=== PATIENT | male | born 1945 | race Caucasian/White ===

== ENCOUNTER 2018-12-19 11:59 | Inpatient (IN) ==
[2018-12-19] MEDS ORDERED: Naloxone 0.4 MG/ML INJ IVP PRN (14:51)
[2018-12-19] MEDS: levoFLOXacin 750 MG/150 ML 750 MG/150 ML BAG IVPB SCH (15:35)
--- NOTE | 2018-12-19 16:04 | Internal Med History&Physical ---
Date of Encounter: 12/20/18 Time of Encounter: 15:30 Internal Medicine - H&P: HPI Chief complaint: Shortness of breath Admitted From: Hospital to Hospital Transfer (Transfer from [facility] [place]) History of present illness: Mr. Gracia is a 73 year old male presenting for increased shortness of breath. Patient states that the worsening shortness of breath started sunday (12/18), although he has been noticing it getting progressively worse for the last few months. He was transferred to [facility] from [facility] [place] for a higher level of care. Patient presented via EMS to [facility] [place] for increased shortness of breath. EMS reports patients SpO2 was 86% and they started him on 4LPM O2 via [place]. EMS also gave patient 1 duoneb treatment as well as salumedrol. Upon arrival to [facility] [place], patient's SpO2 was 93%. Patient states he is getting out of breath even with minimal physical activity. Patient is in 0/10 pain. Patient states he has trouble laying back and usually has to be sitting straight up to not feel short of air. Patient states theres no time in the day when the shortness of breath is worse. Patient states he does have an inhaler at home and uses around 3x daily, which provides some relief. Patient states he has a non-productive cough, denies nausea, denies vomiting, denies constipation, denies dysuria, denies changes in appetites, denies fever. Past Med Surg Social Fam HX - Past Medical History Medical history: COPD, hypertension Additional medical history: smoker - Past Surgical History Surgical History: no surgical history - Social History Smoking Status: Current every day smoker Packs per day: 1 Alcohol use: none Drug use: none - Family History Mother Living Status: Age at : 60 Cause of : cancer Hx Family Cancer: Yes Hx Family GI Disorders: Yes Hx Family Medical Disorders: Yes Internal Medicine - H&P: Meds Albuterol Sulfate [Albuterol Sulfate Hfa] 2 puff IH QID PRN 12/19/18 [History] Diltiazem HCl [Cardizem Cd] 360 mg PO DAILY 12/19/18 [History] Ipratropium/Albuterol Neb [Duoneb] 3 ml IH Q6H PRN 12/19/18 [History] Losartan/Hydrochlorothiazide [Losartan-Hctz 100-25 mg Tab] 1 tab PO DAILY 12/19/18 [History] Allergy/AdvReac Type Severity Reaction Status Date / Time No Known Allergies Allergy Verified 12/19/18 17:32 All Systems PM: A 10-system review of systems was performed and is negative for pertinent findings except as documented above in the HPI. Review of systems: General: Denies fever, chills, fatigue Head: denies headaches Eyes: denies blurry vision ENT: denies decreased hearing, runny nose, sore throat Cardiovascular: Denies chest pain, palpitations, lightheadedness Respiratory: + shortness of air, +cough, +wheezing GI: denies constipation : Denies dysuria Skin: denies unhealing lesions Neuro: denies confusion, denies dizziness. Psych: denies changes in mood, denies changes in sleep Hematological: Denies easy bleeding. Musculoskeletal: Denies fatigue, denies arthralgias. - Constitutional Constitutional: as per HPI - EENT Eyes: as per HPI Ears: as per HPI Nose, mouth and throat: as per HPI - Cardiovascular Cardiovascular ROS IM: as per HPI - Respiratory Respiratory: as per HPI - Gastrointestinal Gastrointestinal: as per HPI - Genitourinary Genitourinary ROS male: as per HPI - Musculoskeletal Musculoskeletal ROS IM: as per HPI - Integumentary Integumentary IM: as per HPI - Neurological Neurological ROS: as per HPI - Psychiatric Psychiatric: as per HPI - Hematologic/Lymphatic Hematologic/Lymphatic: as per HPI - Constitutional Vitals: Pulse Resp BP Pulse Ox 101 22 140/68 93 12/19/18 15:02 12/19/18 15:02 12/19/18 15:02 12/19/18 15:02 General appearance: Present: mild distress, A&O X 3 Exam: General: well-developed, alert and oriented x3, mild distress Head: normocephalic, atraumatic Eyes: PERRLA, EOMI, ENT: Normal mucuous membrane, trachea midline, Cardiovascular: Regular rate and rhythm, normal S1 S2, No S3, S4 auscultated. No rubs, gallops, or murmurs. Respiratory: Equal chest rise and fall, bilaterally wheezes throughout, restricted air movement. GI: Normal bowel sounds x4, abdomen soft, non-tender, non-distended. Skin: Warm, dry, intact Neuro: alert and oriented x3. DTRs 2/4 bilaterally, strength testing 5/5 bilaterally. Psych: Normal mentation and mood - Head Head exam: Present: atraumatic, normocephalic - Eye Eye exam: Present: EOMI, PERRL - ENT ENT exam: Present: normal exam - Neck Neck exam general surgery: Present: normal inspection, trachea midline - Respiratory Respiratory exam: Present: decreased breath sounds, respiratory distress, wheezes - Cardiovascular Cardiovascular exam: Present: RRR, +S1, +S2 - GI/Abdominal GI/Abdominal exam: Present: normal bowel sounds, soft - Extremities Exam Extremities exam: Present: pedal edema, warm, radial pulses palpable and symmetrical - Neurological Exam Neurological exam: Present: alert, oriented X3, reflexes normal, strengths equal and symetr throughout - Psychiatric Psychiatric exam: Present: normal affect, normal mood - Skin Skin exam: Present: dry, intact, warm Internal Med - H&P Results - Labs CBC & Chem 7: 12/20/18 03:43 12/20/18 03:43 - Assessment and Plan (1) Shortness of breath Current Visit: Yes Status: Acute Assessment and plan: Patient presented for shortness of breath. Patient is an active smoker, smoking 1 pack per day. Patient is on an inhaler at home that he states helps with the shortness of breath. Once medication list received will make sure patient has received today's medication since says he has not had his pills for today (12/19) -albuterol/ipratropium as needed -Will Start prednisone -Will start on diuretic once medication list is confirmed. -continue antibiotic therapy (levofloxacin) -Order chest x-ray -Order echo -BiPAP as needed to lower CO2. (2) COPD (chronic obstructive pulmonary disease) Current Visit: Yes Status: Acute Assessment and plan: Patient says he has COPD however states he has never received that official diagnosis. Patient is an active smoker, smoking 1 pack per day. Patient is on an inhaler at home that he states helps with the shortness of breath. Once medication list received will make sure patient has received today's medication since says he has not had his pills for today (12/19) -albuterol/ipratropium as needed -Will Start prednisone -continue antibiotic therapy (levofloxacin) -Order chest x-ray -Order echo -BiPAP as needed to lower CO Qualifiers: COPD type: COPD with acute exacerbation Qualified Code(s): J44.1 - Chronic obstructive pulmonary disease with (acute) exacerbation (3) Congestive heart failure Current Visit: Yes Status: Suspected Assessment and plan: Patient is on a diuretic at home. Patient has +1 pitting edema of the legs, so will treat fluid overloaded state. -Start diuretic based on home medication list. Qualifiers: Heart failure type: unspecified Qualified Code(s): I50.9 - Heart failure, unspecified (4) Hypercapnia Current Visit: Yes Status: Acute Assessment and plan: -BiPAP (5) Elevated troponin Current Visit: Yes Status: Acute Assessment and plan: Will trend troponins. Last troponin 0.50. At [facility] was 0.32 (6) Sepsis Current Visit: Yes Status: Suspected Assessment and plan: Patient meets SIRS criteria. Will continue to monitor. -Antibiotic therapy as above -chest x-ray -Order urinalysis -order BMP, CBC, Qualifiers: Sepsis type: sepsis due to unspecified organism Sepsis acute organ dysfunction status: unspecified Qualified Code(s): A41.9 - Sepsis, unspecified organism - Summary of Assessment and Plan Summary of Assessment and Plan: As above - Time Spent With Patient Total time spent is greater than 50% in coordination of care (as documented) at patient's floor/unit and/or counseling patient: 25 - 35 minutes
--- NOTE | 2018-12-19 17:31 | Internal Med History&Physical ---
<Viri Lazo - Last Filed: 12/19/18 17:38> Date of Encounter: 12/19/18 Time of Encounter: 17:00 Internal Medicine - H&P: HPI History of present illness: Mr. Gracia is a 73 year old male Internal Medicine - H&P: Meds Albuterol Sulfate [Albuterol Sulfate Hfa] 2 puff IH QID PRN 12/19/18 [History] Diltiazem HCl [Cardizem Cd] 360 mg PO DAILY 12/19/18 [History] Ipratropium/Albuterol Neb [Duoneb] 3 ml IH Q6H PRN 12/19/18 [History] Losartan/Hydrochlorothiazide [Losartan-Hctz 100-25 mg Tab] 1 tab PO DAILY 12/19/18 [History] Allergy/AdvReac Type Severity Reaction Status Date / Time No Known Allergies Allergy Verified 12/19/18 17:32 All Systems PM: A 10-system review of systems was performed and is negative for pertinent findings except as documented above in the HPI. - Constitutional Vitals: Pulse Resp BP Pulse Ox 101 22 140/68 93 12/19/18 15:02 12/19/18 15:02 12/19/18 15:02 12/19/18 15:02 Internal Med - H&P Results - Labs Labs: Cardiac Enzymes 12/19/18 Range/Units 15:39 Troponin I 0.50 H* (< 0.04) ng/mL - Time Spent With Patient Total time spent is greater than 50% in coordination of care (as documented) at patient's floor/unit and/or counseling patient: - Attending Attestation I saw evaluated and examined this patient and reviewed past medical, family, social histories and objective data including labs and my medical decision- making was reviewed with the Resident Physician, Ailyn Hirsch. I agree with the documented findings, disposition and treatment plan as described except to any changes set forth below. We independently had aldb-ox-kebu contact with the patient. Patient with history of COPD and a chronic smoker who presented to the ER at [facility] with complaints of shortness of breath going on for the past 3 days along with mild confusion. He had been taken there by his who had called EMS. When EMS arrived at home, he was found to be very wheezy and his room air sats were 85%. In the ED, he had workup done which showed left lower lobe infiltrate. He was sent over here for admission. Presently he seems to be doing somewhat better. He did require BiPAP ER there and he is now been transitioned back to nasal cannula but his oxygen saturation does continue to drop below 85% during my interview. He denies any chest pain or palpitations. No fevers or chills reported. He does have cough, orthopnea. Mild pedal edema. She will be treated for sepsis and acute respiratory failure with hypoxia related to pneumonia. Continue IV antibiotics. Follow culture results. Check pro calcitonin, Legionella and streptococcal antigens. Also treat him for COPD exacerbation with bronchodilators, systemic steroids and O2 supplementation. Use BiPAP as needed. His troponins are elevated. Most likely this is from demand ischemia. However given that he could also be having a non-ST elevation PR, we will treat him empirically with Lovenox and obtain 2-D echocardiogram. His BNP was elevated. No previous records available here. He may have underlying congestive heart failure. Presently, he does not appear to be in acute heart failure. <Ailyn Hirsch E - Last Filed: 12/19/18 18:15> Date of Encounter: 12/19/18 Internal Medicine - H&P: HPI Chief complaint: Shortness of breath Admitted From: Home Plans for Post Hospital Care: Home History of present illness: Mr. Gracia is a 73 year old male 's medical history of hypertension, COPD, tobacco abuse. Presented to [facility] for increased shortness of breath. Patient states that the worsening shortness of breath started sunday (12/18), although he has been noticing it getting progressively worse for the last few months. He was transferred to [facility] from [facility] for a higher level of care. Patient presented via EMS to [facility] for increased shortness of breath. EMS reports patients SpO2 was 86% and they started him on 4LPM O2 via [place]. EMS also gave patient 1 duoneb treatment as well as salumedrol. Upon arrival to [facility], patient's SpO2 was 93%. Patient states he is getting out of breath even with minimal physical activity. Patient is in 0/10 pain. Patient states he has trouble laying back and usually has to be sitting straight up to not feel short of air. Patient states theres no time in the day when the shortness of breath is worse. Patient states he does have an inhaler at home and uses around 3x daily, which provides some relief. Patient states he has a non-productive cough, denies nausea, denies vomiting, denies constipation, denies dysuria, denies changes in appetites, denies fever. Family history includes mother had cancer, father with heart disease Social history includes tobacco use one pack per day for "many years ", denies alcohol and drug use. Past Med Surg Social Fam HX - Past Medical History Medical history: COPD, hypertension Additional medical history: smoker - Past Surgical History Surgical History: no surgical history - Social History Smoking Status: Current every day smoker Packs per day: 1 Alcohol use: none Drug use: none - Family History Mother Living Status: Age at : 60 Cause of : cancer Hx Family Cancer: Yes Hx Family GI Disorders: Yes Hx Family Medical Disorders: Yes All Systems PM: A 10-system review of systems was performed and is negative for pertinent findings except as documented above in the HPI. - Constitutional Constitutional: no chills, no fever(s) - EENT Eyes: no blurry vision Nose, mouth and throat: no nasal congestion, no sinus pain, no sinus pressure, no sore throat - Cardiovascular Cardiovascular ROS IM: no chest pain, no edema, no palpitations - Respiratory Respiratory: cough, dyspnea, wheezing, excessive phlegm production - Gastrointestinal Gastrointestinal: no bloating, no diarrhea, no nausea, no vomiting - Genitourinary Genitourinary ROS male: no difficulty urinating, no urinary frequency, no urinary hesitancy - Musculoskeletal Musculoskeletal ROS IM: no back pain, no neck pain - Integumentary Integumentary IM: no non-healing lesions - Hematologic/Lymphatic Hematologic/Lymphatic: no easy bleeding, no easy bruising - Constitutional Vitals: Pulse Resp BP Pulse Ox 101 22 140/68 93 12/19/18 15:02 12/19/18 15:02 12/19/18 15:02 12/19/18 15:02 General appearance: Present: mild distress, A&O X 3 Exam: General: AAO 3, mild distress, answers questions appropriately Head: normocephalic, atraumatic Eyes: CECI, no icterus Cardio: RRR, no murmurs, rubs, or gallops Respiratory: Stridor and wheezing noted, poor air movement in apices as well as diminished breath sounds bilaterally on lower lobes Abd: normal bowel sounds, no gaurding or rigidity Extremities: 1+ pitting edema to mid teresa, pulses equal bilaterally, warm Skin: warm, dry, intact Internal Med - H&P Results - Labs Labs: Cardiac Enzymes 12/19/18 Range/Units 15:39 Troponin I 0.50 H* (< 0.04) ng/mL - Assessment and Plan (1) Sepsis Current Visit: Yes Status: Suspected Assessment and plan: Patient was tachycardic, elevated respiratory rate, elevated white blood cell count, with possible source of infection as pneumonia Chest x-ray from [facility] reading per ED note showed left basilar opacity concerning for pneumonia Urine strep and Legionella ordered Pro calcitonin ordered We will continue DuoNeb nebs Start levofloxacin BiPAP as needed Continue to monitor Qualifiers: Sepsis type: sepsis due to unspecified organism Sepsis acute organ dysfunction status: unspecified Qualified Code(s): A41.9 - Sepsis, unspecified organism (2) Pneumonia Current Visit: Yes Status: Acute Assessment and plan: Patient has increased work of breathing as well as wheezing History of COPD on albuterol as well as controller inhaler Patient has one-day history of increased shortness of breath and sputum production Chest x-ray [facility] showed left basilar opacity concerning for pneumonia Please see above for plan Qualifiers: Pneumonia type: due to unspecified organism Laterality: left Lung location: unspecified part of lung Qualified Code(s): J18.9 - Pneumonia, unspecified organism (3) Elevated troponin Current Visit: Yes Status: Acute Assessment and plan: [facility] ED troponins 0.3 repeat here 0.5 EKG noted to have some ST segment depressions at [facility] Patient denies any chest pain currently We will continue to trend troponins every 6, if they continue to increase we will consult cardiology Start Lovenox (4) Hypertension Current Visit: Yes Status: Acute Assessment and plan: Patient is on Coreg as well as lisinopril hydrochlorothiazide We will continue to monitor patient's blood pressure Qualifiers: Hypertension type: essential hypertension Qualified Code(s): I10 - Essential (primary) hypertension (5) Congestive heart failure Current Visit: Yes Status: Suspected Assessment and plan: Suspected congestive heart failure due to increased swelling as well as shortness of breath Patient does not have a history of congestive heart failure but does have history of hypertension Patient has 1+ pitting edema to the midshin and has noticed an increase in this over the last 2 days Patient does also have increased shortness of breath with wheezing We will order echocardiogram We will continue to monitor and consider diuresis based on echocardiogram findings as well as physical exam Qualifiers: Heart failure type: unspecified Qualified Code(s): I50.9 - Heart failure, unspecified - Summary of Assessment and Plan Summary of Assessment and Plan: Lovenox - Time Spent With Patient Total time spent is greater than 50% in coordination of care (as documented) at patient's floor/unit and/or counseling patient:
[2018-12-19] MEDS ORDERED: Ipratropium/Albuterol Neb 3 ML IH PRN (17:43)
[2018-12-19] MEDS ORDERED: Adenosine 90 MG/30 ML MLS IV ONE (18:11)
[2018-12-19] MEDS ORDERED: *HR* Heparin 5,000 UNIT/ML VIAL IVP ONE (23:47)
[2018-12-19] MEDS ORDERED: *HR* Heparin 5,000 UNIT/ML VIAL IVP PRN ×2 (23:47)
--- NOTE | 2018-12-19 23:56 | Event Note ---
Date of Encounter: 12/19/18 Time of Encounter: 23:49 Notified by nurse of patients troponin increasing and having intermittent pain in right foot with discoloration and temperature difference, continues to deny chest pain. Patient reports this has been ongoing for around a month, had previous ultrasound completed at [facility] which was negative for DVT. Assessed patient at bedside with Dr Nunez, pulses obtained in left foot with doppler, difficult to obtain in right foot. Will order ultrasound to further evaluate. Patient also had Lovenox ordered and discontinued prior to receiving any dosage. Called [facility] to confirm no anticoagulation was received there. Patient denies any home anticoagulation use. Will start patient on Heparin drip. Discussed with patient who is agreeable. Also discussed plan with Dr Nunez.
[2018-12-20 00:37] LABS: Hematocrit 38.4 % (37.5-50.1); Hemoglobin 12.3 g/dL (12.9-16.9); Mean Corpuscular Hemoglobin 30.5 pg (28.0-33.3); Mean Corpuscular Volume 95.3 fL (83.0-100.0); Platelet Count 580 K/mcL (140-400); Red Blood Count 4.03 M/mcL (4.19-5.50); Red Cell Distribution Width 13.8 % (11.5-14.5); White Blood Count 25.1 K/mcL (4.3-11.1)
[2018-12-20 00:44] LABS: Heparin anti-factor XA UFH 0.04 IU/mL (0.30-0.70)
[2018-12-20 00:45] LABS: INR 1.2; Prothrombin Time 13.5 Seconds (9.4-12.1)
[2018-12-20] MEDS: Heparin 25,000 UNIT/250 ML D5W 25,000 UNIT/250 ML IV.SOLN IVC SCH ×2 (01:57→20:59)
[2018-12-20 04:03] LABS: Basophils # 0.1 K/mcL (0.0-0.2); Basophils % 0.2 %; Hematocrit 37.6 % (37.5-50.1); Hemoglobin 11.8 g/dL (12.9-16.9); Immature Granulocytes % 1.5 % (0-4); Lymphocytes # 1.3 K/mcL (0.6-4.6); Lymphocytes % 5.3 %; Mean Corpuscular HGB Conc 31.4 g/dL (31.6-35.5); Mean Corpuscular Hemoglobin 30.3 pg (28.0-33.3); Mean Corpuscular Volume 96.4 fL (83.0-100.0); Monocytes # 1.4 K/mcL (0.0-1.3); Monocytes % 5.9 %; Neutrophils # 20.4 K/mcL (1.6-8.9); Platelet Count 560 K/mcL (140-400); Red Cell Distribution Width 13.8 % (11.5-14.5); Segmented Neutrophils % 87.1 %; White Blood Count 23.4 K/mcL (4.3-11.1)
[2018-12-20 04:24] LABS: BUN/Creatinine Ratio 28 (6-26); Blood Urea Nitrogen 24 mg/dL (8-23); Calcium 9.1 mg/dL (8.6-10.3); Carbon Dioxide 32 mEq/L (23-29); Chloride 95 mEq/L (98-107); Glucose 117 mg/dL (70-105); Osmolality,Calculated 283 (280-300); Potassium 4.9 mEq/L (3.5-5.1); Sodium 134 mEq/L (136-145); eGFR For African Americans > 60 (> 60); eGFR For Non-African Americans > 60 (> 60)
[2018-12-20] MEDS ORDERED: Enoxaparin Weight Dosing SQ SCH (06:00)
[2018-12-20] MEDS ORDERED: *HR* Enoxaparin 40 MG/0.4 ML SYRINGE SQ SCH (06:00)
--- NOTE | 2018-12-20 09:05 | Internal Med Progress Note ---
<Viri Lazo - Last Filed: 12/20/18 13:28> Hospitalist Progress Note - Encounter Date of Encounter: 12/20/18 Time of Encounter: 09:50 - Subjective Interval History: Patient continues to have shortness of breath. No significant improvement overnight. His not been able to tolerate BiPAP. He was also complaining of intermittent pain in his right foot which has been ongoing for some time now. He denies any loss of sensation or function in his foot. No fevers or chills reported overnight. No chest pain or palpitations. - Exam Vitals: Temp Pulse Resp BP Pulse Ox 98.4 F 101 20 157/76 96 12/20/18 12:21 12/20/18 12:21 12/20/18 12:21 12/20/18 12:21 12/20/18 12:21 Exam: General: Patient is alert, moderate distress, oriented x 3 Respiratory: Tachypneic, shallow respirations, bilateral wheezing Cardiovascular: Regular rate and rhythm. s1 and s2 normal No clicks, rubs, gallops, or murmurs. Mild pedal edema on the right lower extremity. Poor pedal pulses especially on the right. Abdomen: Abdomen is soft, nontender. Bowel sounds are present Musculoskeletal: Spontaneously moving all extremities Skin: warm, dry, intact. Neuro: Alert oriented x 3 normal cranial nerves, no focal deficits - Time Spent with Patient Total time spent is greater than 50% in coordination of care (as documented) at patient's floor/unit and/or counseling patient: Internal Medicine: Result - Labs CBC & Chem 7: 12/20/18 03:43 12/20/18 03:43 Labs: Short CBC 12/20/18 12/20/18 Range/Units 00:16 03:43 WBC 25.1 H 23.4 H (4.3-11.1) K/mcL Hgb 12.3 L 11.8 L (12.9-16.9) g/dL Hct 38.4 37.6 (37.5-50.1) % Plt Count 580 H 560 H (140-400) K/mcL Neutrophils # 20.4 H (1.6-8.9) K/mcL BMP 12/20/18 03:43 Sodium 134 L Potassium 4.9 Chloride 95 L Carbon Dioxide 32 H BUN 24 H Creatinine 0.85 Glucose 117 H Calcium 9.1 Cardiac Enzymes 12/19/18 12/19/18 12/20/18 Range/Units 15:39 20:51 03:43 Troponin I 0.50 H* 0.64 H* 0.53 H* (< 0.04) ng/mL - ABG Interpretation ABG results: PT/INR, D-dimer PT 13.5 Seconds (9.4-12.1) H 12/20/18 00:16 - Impressions Impressions Echocardiogram 12/19/18 17:44 Impressions: LVEF 50-55%. Normal LV chamber size, wall thickness and overall function. Mild segmental left ventricular systolic dysfunction. Mild left ventricular diastolic dysfunction. Atypical septal motion consistent with bundle branch block. Mildly dilated RV with normal function. No significant valvular dysfunction. Severe pulmonary hypertension. Estimated RVSP is >80 mmHg. Left Ventricular Wall Motion: Rest Echo Findings The basal inferior wall was hypokinetic. All other wall segments showed normal motion. Findings: Study Quality * Technically sub-optimal due to poor echocardiographic windows. ECG Findings * Sinus rhythm with BBB. Left Ventricle * LVEF 50-55%. * Normal LV chamber size, wall thickness and overall function. * Mild segmental left ventricular systolic dysfunction. * Mild left ventricular diastolic dysfunction. * Atypical septal motion consistent with bundle branch block. Right Ventricle * Mildly dilated RV with normal function. Left Atrium * Mildly dilated left atrium. Right Atrium * Mildly dilated right atrium. Interatrial Septum * No evidence of a PFO by color Doppler. Aortic Valve * Aortic valve not well visualized. * No aortic regurgitation. * No aortic stenosis. Mitral Valve * Normal mitral valve structure. * Trace mitral regurgitation. * No mitral stenosis. Tricuspid Valve * Normal tricuspid valve structure and function. * Trace tricuspid regurgitation. * Severe pulmonary hypertension. * Estimated RVSP is >80 mmHg. Pulmonic Valve * Pulmonic valve not well visualized. * No pulmonic regurgitation. Aorta * Normally sized aortic root. Pericardium * The pericardium appears normal. IVC * Normal IVC dimensions and inspiratory collapse. Pulmonary Artery * Pulmonary artery not well visualized. Consult Discharge Plan - Plan Referrals: Malika Arriaga MD [Primary Care Provider] - - Attending Attestation I saw evaluated and examined this patient and reviewed objective data including labs and my medical decision-making was reviewed with the medical student. I agree with the documented findings, disposition and treatment plan as described except to any changes set forth below. We independently had [id number] contact with the patient. Sepsis due to pneumonia: Continue current antibiotics. We will repeat chest x-ray today revealed to reevaluate. Legionella and streptococcal antigens have been negative. Pro calcitonin only slightly elevated at 0.15. COPD exacerbation: Continue bronchodilators and O2 supplementation. Use BiPAP as needed. add steroids. Acute respiratory failure with hypoxia: Due to pneumonia and COPD exacerbation. Management as above. Right lower extremity pain: Concerning for intermittent claudication/peripheral vascular disease. No signs of occlusion. Patient had JOE done last night which showed JOE of 0.19 on the right and 0.42 on the left. Will consult vascular surgery for evaluation. Will place patient on aspirin and statin. Troponin elevation: Most likely from demand ischemia. However 2-D echocardiogram does show segmental systolic dysfunction. We will consult car diology for evaluation. Continue IV heparin. Severe pulmonary hypertension: Continue O2 supplementation. Essential hypertension: Blood pressure is elevated. Resume home medications. Chronic diastolic congestive heart failure: 2-D echocardiogram reviewed. Patient has normal ejection fraction but mild left ventricle diastolic dysfunction. No signs of overt heart failure. High risk for complications. <Mike Heath - Last Filed: 12/20/18 17:02> Hospitalist Progress Note - Encounter Date of Encounter: 12/20/18 Time of Encounter: 09:51 - Subjective Interval History: Patient seen and examined at bedside. Reports difficulty breathing, SOB, non- productive cough. Has been unable to tolerate the Bipap machine because he feels like he's suffocating and can't see. Denies fever, chills, chest pain, diarrhea, dysuria, light headedness, abdominal pain and pain in the extremities. - Exam Vitals: Temp Pulse Resp BP Pulse Ox 98.1 F 94 18 146/71 93 12/20/18 07:52 12/20/18 07:52 12/20/18 07:52 12/20/18 07:52 12/20/18 03:55 Exam: Gen: AOx3 Eyes: CECI, EOMI with no conjunctivits Throat: Moist mucous membranes, black/tarry discoloration of tongue likely 2/2 tobacco use CV: RRR with no murmur Resp: Decreased lung volumes with wheezing. Diminished air movement makes it hard to assess crackles or rhales. GI: Soft, non-tender with no organomegally or masses palpated Neuro: CN II-XII intact with no focal deficits. Strength 4/5 in Upper and lower extremities EXT: Weak dorsalis pedis pulses in the right foot. DP 2/4 in left foot. Pedis sw elling 1+ satya but worse in the right foot. Collection of stasis blood in right heel. Calfs non-tender satya Derm: Skin around 1st and 5th toe on the right is discolored without any cuts or trauma in the region. - Assessment and Plan (1) Sepsis Current Visit: Yes Status: Suspected Assessment and Plan: -Patient met SIRS criteria upon admission 12/19 with possible source of infection as pneumonia -Chest x-ray on 12/19 from [facility] reading per ED note showed left basilar opacity concerning for pneumonia - Urine strep and Legionella pending -Pro calcitonin 0.15 on 12/19 - Lactic acid 0.8 on 12/19 Plan: -Cont Levofloxacin 750 mg Q24 -BiPAP as needed -Continue to monitor (2) Pneumonia Current Visit: Yes Status: Acute Assessment and Plan: -one-day history of increased shortness of breath and sputum production - increased work of breathing, increased oxygen demand on 3L and wheezing. No oxygen needed at home - History of COPD - Chest x-ray [facility] 12/19 showed left basilar opacity concerning for pneumonia - Sputum culture obtained 12/19 Plan; - cont Levofloxacin 750 mg Q24 - obtain 2 view chest x ray (3) COPD exacerbation Current Visit: Yes Status: Acute Assessment and Plan: -Increased SOB, non-productive cough, and increased O2 demand from baseline. Normally not on home O2 -Chronic 1PPD smoker - Received solumedrol and duonebs at [facility] on 12/19 Plan: -Continue O2 NC as needed. Wean as tolerated. - Start Solumedrol, consider transition to PO prednisone - Continue scheduled and PRN duonebs. -Use BIPAP as tolerated. (4) Elevated troponin Current Visit: Yes Status: Acute Assessment and Plan: -[facility] ED troponins 0.3. Troponin at [facility] 12/19 was 0.64 and 12/20 is 0.53. -EKG at [facility] showed Sinus tachycardia with ST segment depressions at [facility] on 12/19 Plan: -Cont Heparin IV - Await echocardiogram results, if abnormal plan to consult cardiology (5) Congestive heart failure Current Visit: Yes Status: Suspected Assessment and Plan: -suspected congestive heart failure due +1 pitting edema to the midshin over past 2 days, shortness of breath. -Patient does not have a history of congestive heart failure but does have history of hypertension - BNP 36 12/19 Plan: -await echo results as above (6) Hypertension Current Visit: Yes Status: Acute Assessment and Plan: -Chronic HTN Lisinopril-HctZ Plan: - Continue home medications - Continue to monitor vital signs (7) Arterial insufficiency of lower extremity Current Visit: Yes Status: Acute Assessment and Plan: -intermittent discoloration and temperature difference for past 1 month in R Foot -Reports he had evaluated with Doppler at [facility] 12/18 that was negative for DVT. - Has not been on anticoagulation outpatient - Cyanosis, and temperature changes in foot were noticed on 12/19 at 23:49. Doppler Negative for DVT or SVT -JOE preliminary results 0.19 in the R LE and 0.42 L LE as seen on 12/20 Plan: -Continue to monitor DP pulses - Vascular surgery consult DVT Prophylaxis: On heparin drip - Time Spent with Patient Total time spent is greater than 50% in coordination of care (as documented) at patient's floor/unit and/or counseling patient: Plan of Care Discussed with: patient Internal Medicine: Result - Labs CBC & Chem 7: 12/20/18 03:43 12/20/18 03:43 Labs: Short CBC 12/20/18 12/20/18 Range/Units 00:16 03:43 WBC 25.1 H 23.4 H (4.3-11.1) K/mcL Hgb 12.3 L 11.8 L (12.9-16.9) g/dL Hct 38.4 37.6 (37.5-50.1) % Plt Count 580 H 560 H (140-400) K/mcL Neutrophils # 20.4 H (1.6-8.9) K/mcL BMP 12/20/18 03:43 Sodium 134 L Potassium 4.9 Chloride 95 L Carbon Dioxide 32 H BUN 24 H Creatinine 0.85 Glucose 117 H Calcium 9.1 Cardiac Enzymes 12/19/18 12/19/18 12/20/18 Range/Units 15:39 20:51 03:43 Troponin I 0.50 H* 0.64 H* 0.53 H* (< 0.04) ng/mL - ABG Interpretation ABG results: PT/INR, D-dimer PT 13.5 Seconds (9.4-12.1) H 12/20/18 00:16 <Mike Heath R - Last Filed: 12/20/18 17:02> (1) Sepsis Qualifiers: Sepsis type: sepsis due to unspecified organism Sepsis acute organ dysfunct ion status: unspecified Qualified Code(s): A41.9 - Sepsis, unspecified organism (2) Pneumonia Qualifiers: Pneumonia type: due to unspecified organism Laterality: left Lung location: unspecified part of lung Qualified Code(s): J18.9 - Pneumonia, unspecified organism (5) Congestive heart failure Qualifiers: Heart failure type: unspecified Qualified Code(s): I50.9 - Heart failure, unspecified (6) Hypertension Qualifiers: Hypertension type: essential hypertension Qualified Code(s): I10 - Essential (primary) hypertension
[2018-12-20] MEDS: Ipratropium/Albuterol Neb 3 ML IH SCH ×3 (10:32→20:19)
[2018-12-20] MEDS ORDERED: *HR* HYDROcodone/Acet 5/325 mg TABLET PO ONE (12:02)
[2018-12-20 12:12] LABS: Chol/HDL Ratio 4.7 (0-4.9); Cholesterol 155 mg/dL (< 200); HDL Cholesterol 33 mg/dL (40-59); LDL Cholesterol,Calculated 101 mg/dL (0-99); Triglycerides 105 mg/dL (< 150)
[2018-12-20] MEDS: Diltiazem CD (24hr) 180 MG CAPSULE PO SCH (12:35)
[2018-12-20] MEDS: Acetaminophen 325 MG TABLET PO PRN ×2 (12:35→21:11)
[2018-12-20] MEDS: Losartan/HCTZ 50-12.5 TABLET PO SCH (12:35)
[2018-12-20] MEDS: Aspirin 81 MG TAB.CHEW PO SCH (12:36)
[2018-12-20] MEDS: MethylPREDNISolone 40 MG/ML VIAL IVP SCH ×2 (12:36→23:51)
--- NOTE | 2018-12-20 13:35 | Cardiology Consult Note ---
<Mirza Mondragon - Last Filed: 12/20/18 15:41> Date of Encounter: 12/20/18 Time of Encounter: 13:23 Assessment and Plan (1) Shortness of breath Current Visit: Yes Status: Acute 1. Suspect current condition multifactoral with echo 12/19/18 EF 50-55% showing severe pulmonary hypertension in the setting of Left lower lobe PN as evident on chest x-ray reported from [facility]. Chest x-ray pending. 2. Echo 12/19/18 showed EF 50-55%. Normal LV chamber size, wall thickness and overall function. Mild segmental left ventricular systolic dysfunction. Mild left ventricular diastolic dysfunction. Atypical septal motion consistent with bundle branch block. Mildly dilated RV with normal function. No significant valvular dysfunction. Severe pulmonary hypertension. Estimated RVSP is >80 mmHg. The basal inferior wall was hypokinetic. All other wall segments showed normal motion. 4. Examination RLE 4+ pitting edema, LLE 1+ pitting edema. Lungs rhonchi, fine crackles noted lower lobes. 5. Pt. unable to lie flat for more than several minutes at this time d/t SOB; Cummulative I/Os is -287 6. Will add lasix 40mg IV BID. 7. Will check BNP. 5. Discussed with Dr. Briggs, pt. and family. Will consider LHC when able to tolerate lying flat and decrease in SOB. The pt. and family understand the risks associated with LHC procedure and education given on pre and post procedure. 6. No cardiac rehab warranted at this time. (2) Elevated troponin Current Visit: Yes Status: Acute 1. Troponins 0.50, 0.64, 0.53 likely demand ischemia in the setting of COPD exacerbation with sepsis/PN; denies chest pain. 2. Stat EKG completed. EKG changes noted compared to previous from [facility] with abnormal Q wave/ST changes noted; Reviewed with Dr. Briggs and will consider LHC when pt. tolerates laying flat; currently unable to lay flat d/t SOB. 3. On heparin gtt., continue. (3) Hypertension Current Visit: Yes Status: Acute 1. BP readins averaging 140s/70s. 2. On home dose Cardizem 360mg PO daily, HCTZ/losartan 50/12.5, 2 each daily, continue. Qualifiers: Hypertension type: essential hypertension Qualified Code(s): I10 - Essential (primary) hypertension Discussion w patient/family: The assessment and plan as outlined above was discussed with the patient and/or family members who expressed understanding and agreement. All questions were answered. Thank you for involving us in the care of your patient. Please call with any questions. History of Present Illness Consult date: 12/20/18 Consult reason: elevated troponins Chief complaint: SOB History of present illness: Mr. Gracia is a 73 year old male with PMH of COPD, HTN, smoker presented at [facility] for several months and worsening x 3 days, EMS recorded SPO2 85% at home with mild confusion. Chest x-ray showed LLL infiltrate; transferred to [facility]. Denied chest pain, palpitations, fevers, chills, n/v, diarrhea. Admits to cough, orthopnea, and pedal edema. Past Med Surg Social Fam HX - Past Medical History Attestation: Yes The following information was validated with the patient. Source: patient, old records reviewed Medical history: COPD, hypertension Additional medical history: smoker - Past Surgical History Surgical History: no surgical history - Social History Smoking Status: Current every day smoker Packs per day: 1 Alcohol use: none Drug use: none - Family History Mother Living Status: Age at : 60 Cause of : cancer Hx Family Cancer: Yes Hx Family GI Disorders: Yes Hx Family Medical Disorders: Yes Medications and Allergies Albuterol Sulfate [Albuterol Sulfate Hfa] 2 puff IH QID PRN 12/19/18 [History] Diltiazem HCl [Cardizem Cd] 360 mg PO DAILY 12/19/18 [History] Ipratropium/Albuterol Neb [Duoneb] 3 ml IH Q6H PRN 12/19/18 [History] Losartan/Hydrochlorothiazide [Losartan-Hctz 100-25 mg Tab] 1 tab PO DAILY 12/19/18 [History] Gabapentin [Neurontin] 300 mg PO BID 12/20/18 [History] HYDROcodone/Acet 5/325 mg [[place] 5-325 mg] 1 tab PO TID PRN 12/20/18 [History] Allergy/AdvReac Type Severity Reaction Status Date / Time No Known Allergies Allergy Verified 12/19/18 17:32 All Systems Review: The remainder of the systems were reviewed and are negative - Cardiovascular Cardiovascular: as per HPI Physical Examination Vital Signs, Last 4 Hours Temp Pulse Resp BP Pulse Ox 12/20/18 12:21 98.4 F 101 20 157/76 96 12/20/18 11:09 98 F 101 18 147/77 95 12/20/18 10:32 26 96 12/20/18 10:16 93 General: Conversant, No Apparent Distress HEENT: Atraumatic, Normocephaly, Mucus Membranes Moist Neck: No JVD, Normal carotid pulses Cardiac: Reg Rate and Rhythm, Normal S1 and S2, No Murmur Lungs: Normal Breath Sounds, No Wheeze, Rales, Rhonchi Neuro: Alert and responsive, No focal deficits noted Abdomen: Soft, Non-Tender Skin: No rashes noted on visualized skin Musculoskeletal: No Chest Wall Tenderness Extremities: No Clubbing, No Cyanosis, No Edema, Normal Pulses Results 12/20/18 03:43 12/20/18 03:43 Lab Results Laboratory Tests 12/19/18 12/20/18 12/20/18 20:51 00:16 03:43 WBC 25.1 H Hgb 12.3 L Hct 38.4 Plt Count 580 H BUN 24 H Creatinine 0.85 Est GFR (Non-Af Amer) > 60 LDL Cholesterol, Calc 101 H HDL Cholesterol 33 L Procalcitonin 0.15 Laboratory Tests 12/19/18 12/19/18 12/20/18 15:39 20:51 03:43 Troponin I 0.50 H* 0.64 H* 0.53 H* Selected Entries 12/19/18 15:02 12/19/18 19:13 12/19/18 22:42 Blood Pressure 140/68 137/81 140/79 12/20/18 03:55 12/20/18 07:52 12/20/18 11:09 Blood Pressure 145/78 146/71 147/77 12/20/18 12:21 Blood Pressure 157/76 Impressions ITS Impressions Echocardiogram 12/19/18 17:44 Impressions: LVEF 50-55%. Normal LV chamber size, wall thickness and overall function. Mild segmental left ventricular systolic dysfunction. Mild left ventricular diastolic dysfunction. Atypical septal motion consistent with bundle branch block. Mildly dilated RV with normal function. No significant valvular dysfunction. Severe pulmonary hypertension. Estimated RVSP is >80 mmHg. Left Ventricular Wall Motion: Rest Echo Findings The basal inferior wall was hypokinetic. All other wall segments showed normal motion. Active Medications Acetaminophen (Tylenol) 650 mg PO Q6HR PRN PRN Reason: Mild Pain/Fever Stop: 06/20/19 14:52 Last Admin: 12/20/18 12:35 Dose: 650 mg Documented by: Albuterol/Ipratropium (Duoneb) 3 ml IH [id number] PRN PRN Reason: Shortness Of Breath/Wheezing Stop: 06/20/19 17:44 Albuterol/Ipratropium (Duoneb) 3 ml IH [id number] [facility] Stop: 06/21/19 12:01 Last Admin: 12/20/18 10:32 Dose: 3 ml Documented by: Aspirin (Aspirin) 81 mg PO DAILY [facility] Stop: 06/21/19 09:01 Last Admin: 12/20/18 12:36 Dose: 81 mg Documented by: Atorvastatin Calcium (Lipitor) 40 mg PO HS [facility] Stop: 06/21/19 21:01 Diltiazem HCl (Cardizem Cd) 360 mg PO DAILY [facility] Stop: 06/21/19 12:01 Last Admin: 12/20/18 12:35 Dose: 360 mg Documented by: HCTZ/Losartan Potassium (Hyzaar 50/12.5) 2 each PO DAILY [facility] Stop: 06/21/19 11:16 Last Admin: 12/20/18 12:35 Dose: 2 each Documented by: Heparin Sodium (Porcine) (Heparin) 4,000 unit IVP Q6HR PRN PRN Reason: SEE COMMENTS Stop: 06/20/19 23:48 Last Admin: 12/20/18 09:22 Dose: 4,000 unit Documented by: Heparin Sodium (Porcine) (Heparin) 2,000 unit IVP Q6H PRN PRN Reason: SEE COMMENTS Stop: 06/20/19 23:48 Levofloxacin/Dextrose (Levaquin Premix 750mg/150 Ml) 750 mg in 150 mls @ 100 mls/hr IVPB Q24H [facility]; Protocol Stop: 06/20/19 16:01 Last Admin: 12/19/18 15:35 Dose: 100 mls/hr Documented by: Heparin Sodium/Dextrose (Heparin 25,000 Unit/250 Ml D5w) 25,000 unit in 250 mls @ 10.044 mls/hr IVC .Q24H [facility]; Protocol Stop: 06/20/19 23:46 Last Titration: 12/20/18 09:19 Dose: 16 unit/kg/hr, 13.4 mls/hr Documented by: Methylprednisolone (Solu-Medrol) 40 mg IVP Q12H [facility] Stop: 06/21/19 11:01 Last Admin: 12/20/18 12:36 Dose: 40 mg Documented by: Naloxone HCl (Narcan) 0.4 mg IVP Q2MPRN PRN PRN Reason: SEE COMMENTS Stop: 06/20/19 14:52 Consult Discharge Plan - Plan Referrals: Malika Arriaga MD [Primary Care Provider] - <John Briggs - Last Filed: 12/21/18 12:19> Date of Encounter: 12/21/18 - Attending Attestation I have personally performed a face to face evaluation on this patient. I have reviewed and agree with the care plan. History and Exam by me shows: 73-year-old male with history of COPD exacerbation, pneumonia, elevated troponins with EKG changes. We will pursue aggressive risk assessment with a C on patient stable from above comorbidities and able to lay flat tolerated procedure. Assessment and Plan Discussion w patient/family: The assessment and plan as outlined above was discussed with the patient and/or family members who expressed understanding and agreement. All questions were answered. Thank you for involving us in the care of your patient. Please call with any questions. History of Present Illness History of present illness: Mr. Gracia is a 73 year old male All Systems Review: The remainder of the systems were reviewed and are negative Physical Examination Vital Signs, Last 4 Hours Temp Pulse Resp BP Pulse Ox 12/21/18 11:08 97.9 F 78 18 131/60 95 Results 12/21/18 04:18 12/21/18 04:18 Lab Results 12/20/18 12/21/18 12/21/18 16:20 04:18 04:18 WBC 22.0 H Hgb 11.5 L Hct 36.3 L Plt Count 567 H INR 1.1 Sodium Potassium Chloride Carbon Dioxide BUN Creatinine Glucose Calcium B-Natriuretic Peptide 572 H 12/21/18 04:18 WBC Hgb Hct Plt Count INR Sodium 135 L Potassium 4.5 Chloride 92 L Carbon Dioxide 38 H BUN 35 H Creatinine 1.08 Glucose 162 H Calcium 9.5 B-Natriuretic Peptide
--- NOTE | 2018-12-20 15:24 | Vascular/Endovasc Consult Note ---
Date of Encounter: 12/21/18 Time of Encounter: 15:10 Assessment and Plan (1) Atherosclerosis of [place] arteries of extremities with intermittent claudication, bilateral legs Current Visit: Yes Status: Chronic The pathophysiology and natural history of peripheral vascualr disease was discussed with the patient and his family and all questions were answered. The patient has evidence of severe peripheral vascular disease by ankle brachial index. He has no evidence of acute limb ischemia. He has no ulcers or gangrene. He does report nocturnal rest pain. He has limited mobility and reports claudication. He has a diminished pulse exam. He likely has inflow and outflow disease. He will require further evaluation and intervention once his acute illness has resolved. Due to his comorbidities, he is high risk for any surgical procedures. At this time, continue with daily ASA. Plavix may be added if the patient is able to tolerate it. WIll order additional arterial imaging. (2) COPD (chronic obstructive pulmonary disease) Current Visit: Yes Status: Chronic Qualifiers: COPD type: COPD with acute exacerbation Qualified Code(s): J44.1 - Chronic obstructive pulmonary disease with (acute) exacerbation (3) Congestive heart failure Current Visit: Yes Status: Chronic The patient is currently being evaluated by Cardiology for congestive heart failure. Qualifiers: Heart failure type: diastolic Heart failure chronicity: acute on chronic Qualified Code(s): I50.33 - Acute on chronic diastolic (congestive) heart failure (4) Pneumonia Current Visit: Yes Status: Acute The patient is currently being treated for pneumonia. Qualifiers: Pneumonia type: due to unspecified organism Laterality: left Lung location: unspecified part of lung Qualified Code(s): J18.9 - Pneumonia, unspecified organism (5) Hypertension Current Visit: Yes Status: Acute The patient was counseled regarding atherosclerotic risk factor reduction. Qualifiers: Hypertension type: essential hypertension Qualified Code(s): I10 - Essential (primary) hypertension - History of Present Illness Consult date: 12/20/18 Requesting physician: Ti Soriano Consult reason: Peripheral vascular disease Chief complaint: Intermittent right foot pain History of present illness: Mr. Gracia is a 73 year old male with history of COPD who presented to [facility] with shortness of breath. He had progressive shortness of breath and was noted to have a pneumonia. Patient also was found to have congestive heart failure. Patient also has history of hypertension tobacco abuse. He was transferred to [facility] where he required supplemental oxygenation as well as intravenous antibiotics. During his physical examination abdomen was examined completed of right forefoot intermittent pain. Intravascular labs are noted to be abnormal. Vascular surgery was counseled for further evaluation. The patient has limited mobility due to shortness of breath. He denies disabling claudication. He does report nocturnal rest pain. He denies ulceration or gangrene. He reports that he is slowly beginning to feel better. He denies any active chest pain. He is unable to lie flat for any significant period of time due to shortness of breath. Past Med Surg Social Fam HX - Past Medical History Medical history: COPD, hypertension Additional medical history: smoker - Past Surgical History Surgical History: no surgical history - Social History Smoking Status: Current every day smoker Packs per day: 1 Alcohol use: none Drug use: none - Family History Mother Living Status: Age at : 60 Cause of : cancer Hx Family Cancer: Yes Hx Family GI Disorders: Yes Hx Family Medical Disorders: Yes Medications and Allergies Albuterol Sulfate [Albuterol Sulfate Hfa] 2 puff IH QID PRN 12/19/18 [History] Diltiazem HCl [Cardizem Cd] 360 mg PO DAILY 12/19/18 [History] Ipratropium/Albuterol Neb [Duoneb] 3 ml IH Q6H PRN 12/19/18 [History] Losartan/Hydrochlorothiazide [Losartan-Hctz 100-25 mg Tab] 1 tab PO DAILY 12/19/18 [History] HYDROcodone/Acet 5/325 mg [Edward 5-325 mg] 1 tab PO TID PRN 12/20/18 [History] Allergy/AdvReac Type Severity Reaction Status Date / Time No Known Allergies Allergy Verified 12/19/18 17:32 All Systems Review: The remainder of the systems were reviewed and are negative - Constitutional Constitutional: no chills, no fever(s) - Cardiovascular Cardiovascular: dyspnea at rest, no chest pain at rest, no palpitations - Respiratory Respiratory: cough, wheezing - Gastrointestinal Gastrointestinal: no abdominal pain - Musculoskeletal Musculoskeletal: no back pain Exam Vital Signs, Last 4 Hours Temp Pulse Resp BP Pulse Ox 12/20/18 12:21 98.4 F 101 20 157/76 96 General: Present: Conversant HEENT: Present: Atraumatic, Pupils equal Neck: Absent: JVD, Lymphadenopathy, Left Carotid bruit, Right Carotid bruit Cardiac: Present: Reg Rate and Rhythm, Normal S1 and S2 Lungs: Present: Other (breath sounds bilaterally) Neuro: Present: Alert and responsive, Motor nerves grossly intact, Sensory nerves grossly intact Abdomen: Present: Soft, Non-tender Vascular: Present: Normal capillary refill (left foot), Pulse, absent (Right femoral, bilateral popliteal and tibial pulses), Pulse, diminished, Pulse, normal (left femoral ), Other (dependent rubor in the right foot). Absent: Clubbing, Cyanosis Skin: Present: No rashes noted on visualized skin, Wound/ulcer(s) (superfical wound on right distal teresa) Consult Discharge Plan - Plan Referrals: Malika Arriaga MD [Primary Care Provider] -
[2018-12-20] MEDS: Furosemide 40 MG/4 ML VIAL IVP SCH ×2 (16:51→20:58)
[2018-12-20] MEDS: levoFLOXacin 750 MG/150 ML 750 MG/150 ML BAG IVPB SCH (16:51)
[2018-12-21] MEDS: Ipratropium/Albuterol Neb 3 ML IH SCH ×7 (00:03→23:38)
[2018-12-21 05:07] LABS: Basophils % 0.2 %; Hematocrit 36.3 % (37.5-50.1); Hemoglobin 11.5 g/dL (12.9-16.9); Immature Granulocytes % 1.6 % (0-4); Lymphocytes # 0.5 K/mcL (0.6-4.6); Lymphocytes % 2.3 %; Mean Corpuscular HGB Conc 31.7 g/dL (31.6-35.5); Mean Corpuscular Hemoglobin 30.3 pg (28.0-33.3); Mean Corpuscular Volume 95.5 fL (83.0-100.0); Mean Platelet Volume 9.4 fL (9.4-12.4); Monocytes # 0.5 K/mcL (0.0-1.3); Neutrophils # 20.7 K/mcL (1.6-8.9); Platelet Count 567 K/mcL (140-400); Red Cell Distribution Width 13.6 % (11.5-14.5); Segmented Neutrophils % 93.9 %
[2018-12-21 05:28] LABS: BUN/Creatinine Ratio 32 (6-26); Blood Urea Nitrogen 35 mg/dL (8-23); Calcium 9.5 mg/dL (8.6-10.3); Carbon Dioxide 38 mEq/L (23-29); Chloride 92 mEq/L (98-107); Glucose 162 mg/dL (70-105); Osmolality,Calculated 292 (280-300); Potassium 4.5 mEq/L (3.5-5.1); Sodium 135 mEq/L (136-145); eGFR For African Americans > 60 (> 60); eGFR For Non-African Americans > 60 (> 60)
[2018-12-21 05:50] LABS: INR 1.1; Prothrombin Time 12.7 Seconds (9.4-12.1)
--- NOTE | 2018-12-21 08:36 | Cardiology Progress Note ---
<Mirza Mondragon - Last Filed: 12/21/18 12:32> Date of Encounter: 12/21/18 Time of Encounter: 09:00 Assessment and Plan (1) Shortness of breath Current Visit: Yes Status: Acute 1. Suspected current condition multifactoral with echo 12/19/18 EF 50-55% showing severe pulmonary hypertension in the setting of Left lower lobe PN as evident on chest x-ray reported from [facility]. 2. Chest x-ray 12/20/18; cardiac silhouette stable; hyperinflation lung marinelli; airspace changes left lung base, small left effusion. SOB improved. 3. Examination shows a decrease in pitting edema with previous RLE 4+ pitting edema, LLE 1+ pitting edema; currently 1+ bilat Lower ext. Lungs improved from rhonchi to exp wheezes. 5. Pt. is now able to lay flat with gentle diuresis. Cummulative I/Os is -1606. 6. On lasix 40mg IV BID, will continue. 7. BNP elevated at 572. 5. Discussed with Dr. Briggs, pt. and family. Will continue diuresis and plan possible LHC for Sunday. The pt. and family understand the risks associated with LHC procedure and education given on pre and post procedure. 6. No cardiac rehab warranted at this time. 7. Will add diet, make NPO Sunday. (2) Elevated troponin Current Visit: Yes Status: Acute 1.Troponins 0.50, 0.64, 0.53 likely demand ischemia in the setting of COPD exacerbation with sepsis/PN; denies chest pain, improvement in SOB. 2. Stat EKG completed yesterday. EKG changes noted compared to previous from [facility] with abnormal Q wave/ST changes noted; Reviewed with Dr. Briggs and will plan for possible LHC for Sunday. Will monitor and trend if changes noted from current baseline. 3. On heparin gtt., continue. (3) Hypertension Current Visit: Yes Status: Acute 1. BP readings continue to trend down; 130s/70s. 2. On home dose Cardizem 360mg PO daily, HCTZ/losartan 50/12.5, 2 each daily, continue. Qualifiers: Hypertension type: essential hypertension Qualified Code(s): I10 - Esse ntial (primary) hypertension Discussion w patient/family: The assessment and plan as outlined above was discussed with the patient and/or family members who expressed understanding and agreement. All questions were answered. Thank you for involving us in the care of your patient. Please call with any questions. Subjective Principal diagnosis: SOB Interval history: 1. Denies Chest pain, SOB, palpitations, Diaphoresis. Objective Vital Signs, Last 4 Hours Temp Pulse Resp BP Pulse Ox 12/21/18 07:50 97.9 F 78 18 130/60 100 12/21/18 07:42 18 97 12/21/18 05:33 97.8 F 83 19 136/71 97 General: Conversant HEENT: Atraumatic, Normocephaly, Mucus Membranes Moist Neck: No JVD, Normal carotid pulses Cardiac: Reg Rate and Rhythm, Normal S1 and S2, No Murmur Lungs: Normal Breath Sounds, No Wheeze, Rales, Rhonchi, Other (Exp. wheezes all marinelli) Neuro: Alert and responsive, No focal deficits noted Abdomen: Soft, Non-Tender Skin: No rashes noted on visualized skin Musculoskeletal: No Chest Wall Tenderness Extremities: No Clubbing, No Cyanosis, Normal Pulses, Other (1+ pitting edema bilat lower ext.) Results 12/21/18 04:18 12/21/18 04:18 Lab Results Laboratory Tests 12/20/18 12/21/18 12/21/18 16:20 04:18 04:18 Hgb 11.5 L Hct 36.3 L Plt Count 567 H Sodium 135 L BUN 35 H Creatinine 1.08 Est GFR (Non-Af Amer) > 60 B-Natriuretic Peptide 572 H Laboratory Tests 12/19/18 12/19/18 12/20/18 15:39 20:51 03:43 Troponin I 0.50 H* 0.64 H* 0.53 H* Impressions Echocardiogram 12/19/18 17:44 Impressions: LVEF 50-55%. Normal LV chamber size, wall thickness and overall function. Mild segmental left ventricular systolic dysfunction. Mild left ventricular diastolic dysfunction. Atypical septal motion consistent with bundle branch block. Mildly dilated RV with normal function. No significant valvular dysfunction. Severe pulmonary hypertension. Estimated RVSP is >80 mmHg. Left Ventricular Wall Motion: Rest Echo Findings The basal inferior wall was hypokinetic. All other wall segments showed normal motion. Chest X-Ray 12/20/18 11:22 IMPRESSION: Airspace changes in the medial aspect of the left lung base and small left effusion. This is concerning for an infiltrate. Follow up to resolution is suggested. D/ / 12/20/2018 15:10:28 Maritza Oakley MD / kelsey Interpreting Provider: Maritza Oakley MD Active Medications Acetaminophen (Tylenol) 650 mg PO Q6HR PRN PRN Reason: Mild Pain/Fever Stop: 06/20/19 14:52 Last Admin: 12/20/18 21:11 Dose: 650 mg Documented by: Albuterol/Ipratropium (Duoneb) 3 ml IH [id number] PRN PRN Reason: Shortness Of Breath/Wheezing Stop: 06/20/19 17:44 Albuterol/Ipratropium (Duoneb) 3 ml IH [id number] CHERIE Stop: 06/21/19 12:01 Last Admin: 12/21/18 07:42 Dose: 3 ml Documented by: Aspirin (Aspirin) 81 mg PO DAILY CHERIE Stop: 06/21/19 09:01 Last Admin: 12/21/18 09:45 Dose: 81 mg Documented by: Atorvastatin Calcium (Lipitor) 40 mg PO HS CHERIE Stop: 06/21/19 21:01 Last Admin: 12/20/18 20:58 Dose: 40 mg Documented by: Diltiazem HCl (Cardizem Cd) 360 mg PO DAILY CHERIE Stop: 06/21/19 12:01 Last Admin: 12/21/18 09:45 Dose: 360 mg Documented by: Furosemide (Lasix) 40 mg IVP BIDDIURETIC CHERIE Stop: 06/21/19 15:37 Last Admin: 12/21/18 09:45 Dose: 40 mg Documented by: HCTZ/Losartan Potassium (Hyzaar 50/12.5) 2 each PO DAILY CHERIE Stop: 06/21/19 11:16 Last Admin: 12/21/18 09:45 Dose: 2 each Documented by: Heparin Sodium (Porcine) (Heparin) 4,000 unit IVP Q6HR PRN PRN Reason: SEE COMMENTS Stop: 06/20/19 23:48 Last Admin: 12/20/18 09:22 Dose: 4,000 unit Documented by: Heparin Sodium (Porcine) (Heparin) 2,000 unit IVP Q6H PRN PRN Reason: SEE COMMENTS Stop: 06/20/19 23:48 Last Admin: 12/20/18 16:49 Dose: 2,000 unit Documented by: Levofloxacin/Dextrose (Levaquin Premix 750mg/150 Ml) 750 mg in 150 mls @ 100 mls/hr IVPB Q24H CHERIE; Protocol Stop: 06/20/19 16:01 Last Infusion: 12/20/18 18:57 Dose: Infused Documented by: Heparin Sodium/Dextrose (Heparin 25,000 Unit/250 Ml D5w) 25,000 unit in 250 mls @ 10.044 mls/hr IVC .Q24H CHERIE; Protocol Stop: 06/20/19 23:46 Last Titration: 12/21/18 05:37 Dose: 18.04 unit/kg/hr, 15.1 mls/hr Documented by: Methylprednisolone (Solu-Medrol) 40 mg IVP Q12H CHERIE Stop: 06/21/19 11:01 Last Admin: 12/20/18 23:51 Dose: 40 mg Documented by: Naloxone HCl (Narcan) 0.4 mg IVP Q2MPRN PRN PRN Reason: SEE COMMENTS Stop: 06/20/19 14:52 - Imaging and Cardiology Chest Xray: report reviewed Echo: report reviewed - EKG Interpretation EKG results cardiology: no diagnostic ischemia Consult Discharge Plan - Plan Referrals: Malika Arriaga MD [Primary Care Provider] - <John Briggs - Last Filed: 12/22/18 12:21> Date of Encounter: 12/22/18 Assessment and Plan Discussion w patient/family: The assessment and plan as outlined above was discussed with the patient and/or family members who expressed understanding and agreement. All questions were answered. Thank you for involving us in the care of your patient. Please call with any questions. I have personally performed a face to face evaluation on this patient. I have reviewed and agree with the care plan. History and Exam by me shows: Mild hypervolemia unable to lay flat, continue gentle diuresis and plan for LHC when stable and euvolemic Objective Vital Signs, Last 4 Hours Temp Pulse Resp BP Pulse Ox 12/22/18 11:09 18 97 12/22/18 10:42 98.4 F 96 18 139/70 98 Results 12/22/18 04:26 12/22/18 04:26 Lab Results 12/22/18 12/22/18 04:26 04:26 WBC 21.7 H Hgb 12.9 Hct 41.7 Plt Count 649 H Sodium 137 Potassium 4.6 Chloride 89 L Carbon Dioxide 39 H BUN 31 H Creatinine 1.02 Glucose 120 H Calcium 10.0
[2018-12-21] MEDS: Furosemide 40 MG/4 ML VIAL IVP SCH ×2 (09:45→17:16)
[2018-12-21] MEDS: Aspirin 81 MG TAB.CHEW PO SCH (09:45)
[2018-12-21] MEDS: Diltiazem CD (24hr) 180 MG CAPSULE PO SCH (09:45)
[2018-12-21] MEDS: Losartan/HCTZ 50-12.5 TABLET PO SCH (09:45)
--- NOTE | 2018-12-21 12:27 | Internal Med Progress Note ---
Hospitalist Progress Note - Encounter Date of Encounter: 12/21/18 Time of Encounter: 12:22 - Subjective Interval History: Evaluated patient earlier today. He feels that his breathing has improved significantly since yesterday. Denies any chest pain or palpitations. He has had good urine output. Pain in his right foot is stable. - Exam Vitals: Temp Pulse Resp BP Pulse Ox 97.9 F 78 18 131/60 95 12/21/18 11:08 12/21/18 11:08 12/21/18 11:08 12/21/18 11:08 12/21/18 11:08 Exam: General: Patient is alert, mild distress, oriented x 3 Respiratory: Bilateral end expiratory wheezing. Improved inspiratory depth. Not using accessory muscles today. Cardiovascular: Regular rate and rhythm. s1 and s2 normal No clicks, rubs, gallops, or murmurs. Bilateral pedal edema greater on the right. Diminished pedal pulses bilaterally but more on the night Abdomen: Abdomen is soft, nontender. Bowel sounds are present Musculoskeletal: Spontaneously moving all extremities Skin: warm, dry, intact. Neuro: Alert oriented x 3 normal cranial nerves, no focal deficits - Assessment and Plan (1) Sepsis Current Visit: Yes Status: Acute (2) Pneumonia Current Visit: Yes Status: Acute (3) COPD exacerbation Current Visit: Yes Status: Acute (4) Arterial insufficiency of lower extremity Current Visit: Yes Status: Acute (5) Elevated troponin Current Visit: Yes Status: Acute (6) COPD (chronic obstructive pulmonary disease) Current Visit: Yes Status: Chronic (7) Congestive heart failure Current Visit: Yes Status: Chronic DVT Prophylaxis: Patient remains on heparin drip - Summary of Assessment and Plan Summary of Assessment and Plan: Sepsis due to pneumonia involving the left lung: Legionella and streptococcal antigen tests have been negative. Unknown organism. WBC count trending down. Continue Levaquin. Leukocytosis could also be related to steroid use. Possible non-ST elevation MA: Troponins went up to peak of 0.64. Patient on IV heparin drip. Cardiology consulted. They have recommended left heart catheterization or whether patient's respiratory status improves. In the meantime, patient is on aspirin, statin. Diastolic congestive heart failure: Continue Lasix. Will transition to oral Lasix tomorrow. COPD exacerbation: Continue bronchodilators. Transition to oral steroids. Con tinue O2 supplementation. Peripheral arterial disease: Vascular surgery consult appreciated. Continue aspirin, statin. Patient is a high risk candidate for surgical intervention. Severe pulmonary hypertension: Continue O2 supplementation. Outpatient follow- up with pulmonary hypertension clinic. High risk for complications. - Time Spent with Patient Total time spent is greater than 50% in coordination of care (as documented) at patient's floor/unit and/or counseling patient: Internal Medicine: Result - Labs CBC & Chem 7: 12/21/18 04:18 12/21/18 04:18 Labs: Short CBC 12/21/18 Range/Units 04:18 WBC 22.0 H (4.3-11.1) K/mcL Hgb 11.5 L (12.9-16.9) g/dL Hct 36.3 L (37.5-50.1) % Plt Count 567 H (140-400) K/mcL Neutrophils # 20.7 H (1.6-8.9) K/mcL BMP 12/21/18 04:18 Sodium 135 L Potassium 4.5 Chloride 92 L Carbon Dioxide 38 H BUN 35 H Creatinine 1.08 Glucose 162 H Calcium 9.5 - ABG Interpretation ABG results: PT/INR, D-dimer PT 12.7 Seconds (9.4-12.1) H 12/21/18 04:18 - Impressions Impressions Chest X-Ray 12/20/18 11:22 IMPRESSION: Airspace changes in the medial aspect of the left lung base and small left effusion. This is concerning for an infiltrate. Follow up to resolution is suggested. D/ / 12/20/2018 15:10:28 Maritza Oakley MD / kelsey Interpreting Provider: Maritza Oakley MD Consult Discharge Plan - Plan Referrals: Malika Arriaga MD [Primary Care Provider] - (1) Sepsis Qualifiers: Sepsis type: sepsis due to unspecified organism Sepsis acute organ dysfunctio n status: unspecified Qualified Code(s): A41.9 - Sepsis, unspecified organism (2) Pneumonia Qualifiers: Pneumonia type: due to unspecified organism Laterality: left Lung location: unspecified part of lung Qualified Code(s): J18.9 - Pneumonia, unspecified organism (6) COPD (chronic obstructive pulmonary disease) Qualifiers: COPD type: COPD with acute exacerbation Qualified Code(s): J44.1 - Chronic obstructive pulmonary disease with (acute) exacerbation (7) Congestive heart failure Qualifiers: Heart failure type: diastolic Heart failure chronicity: acute on chronic Qualified Code(s): I50.33 - Acute on chronic diastolic (congestive) heart failure
[2018-12-21] MEDS: MethylPREDNISolone 40 MG/ML VIAL IVP SCH (13:13)
[2018-12-21] MEDS: Heparin 25,000 UNIT/250 ML D5W 25,000 UNIT/250 ML IV.SOLN IVC SCH (13:57)
[2018-12-21] MEDS ORDERED: *HR* HYDROcodone/Acet 5/325 mg TABLET PO PRN (16:45)
--- NOTE | 2018-12-21 16:54 | Vascular/Endovas Progress Note ---
Date of Encounter: 12/21/18 Time of Encounter: 15:45 - Assessment and plan (1) Atherosclerosis of [place] arteries of extremities with intermittent claudication, bilateral legs Current Visit: Yes Status: Chronic The patient reports nocturnal rest pain in the right foot. He has no signs or symptoms of acute limb threatening ischemia. A severe chronic peripheral vascular disease. He is duplex reveals a right superficial femoral artery occlusion as well as tibial disease. He likely has inflow disease as well. Ultimately the patient will require surgical intervention. However if this time he is not a candidate given his acute medical problems. He is currently requiring 15 L of oxygen has a white count 22,000 secondary to his pneumonia. The patient be reassessed after the weekend. Continue daily aspirin. Provide adequate pain control for his nocturnal rest pain. (2) COPD (chronic obstructive pulmonary disease) Current Visit: Yes Status: Chronic Qualifiers: COPD type: COPD with acute exacerbation Qualified Code(s): J44.1 - Chronic obstructive pulmonary disease with (acute) exacerbation (3) Congestive heart failure Current Visit: Yes Status: Chronic The patient is currently being evaluated by Cardiology for congestive heart failure. Qualifiers: Heart failure type: diastolic Heart failure chronicity: acute on chronic Qualified Code(s): I50.33 - Acute on chronic diastolic (congestive) heart failure (4) Pneumonia Current Visit: Yes Status: Acute The patient is currently being treated for pneumonia. Qualifiers: Pneumonia type: due to unspecified organism Laterality: left Lung location: unspecified part of lung Qualified Code(s): J18.9 - Pneumonia, unspecified organism (5) Hypertension Current Visit: Yes Status: Acute The patient was counseled regarding atherosclerotic risk factor reduction. Qualifiers: Hypertension type: essential hypertension Qualified Code(s): I10 - Essential (primary) hypertension - Subjective Interval history: The patient is alert and appears comfortable. He does report shortness of breath. He is currently on 15 L of oxygen. He reports nocturnal rest pain in the right foot. He denies any chest pain. Vital Signs, Last 4 Hours Temp Pulse Resp BP Pulse Ox 12/21/18 14:56 98.2 F 89 18 120/55 93 - Physical Examination General: Present: Conversant, No Apparent Distress HEENT: Present: Pupils equal Cardiac: Present: Reg Rate and Rhythm Lungs: Present: Other (Breath sounds bilaterally) Neuro: Present: Alert and responsive, No focal deficits noted Vascular: Present: Pulse, absent (Bilateral pedal), Pulse, diminished (Right femoral), Pulse, normal (Left femoral), Other Abdomen: Present: Soft Skin: Present: No rashes noted on visualized skin Results 12/27/18 02:37 12/27/18 02:37 Lab Results, Last 24 hours 12/20/18 12/21/18 12/21/18 16:20 04:18 04:18 WBC 22.0 H Hgb 11.5 L Hct 36.3 L Plt Count 567 H INR 1.1 Sodium Potassium Chloride Carbon Dioxide BUN Creatinine Glucose Calcium B-Natriuretic Peptide 572 H 12/21/18 04:18 WBC Hgb Hct Plt Count INR Sodium 135 L Potassium 4.5 Chloride 92 L Carbon Dioxide 38 H BUN 35 H Creatinine 1.08 Glucose 162 H Calcium 9.5 B-Natriuretic Peptide Consult Discharge Plan - Plan Referrals: Malika Arriaga MD [Primary Care Provider] -
[2018-12-21] MEDS: levoFLOXacin 750 MG/150 ML 750 MG/150 ML BAG IVPB SCH (17:16)
[2018-12-21] MEDS: *HR* HYDROcodone/Acet 5/325 mg TABLET PO PRN (21:20)
[2018-12-21] MEDS: Gabapentin 300 MG CAPSULE PO SCH (21:23)
[2018-12-22] MEDS: Ipratropium/Albuterol Neb 3 ML IH SCH ×6 (03:37→23:54)
[2018-12-22 04:41] LABS: Basophils # 0.1 K/mcL (0.0-0.2); Basophils % 0.2 %; Hematocrit 41.7 % (37.5-50.1); Hemoglobin 12.9 g/dL (12.9-16.9); Immature Granulocytes % 1.2 % (0-4); Lymphocytes # 2.6 K/mcL (0.6-4.6); Lymphocytes % 11.9 %; Mean Corpuscular HGB Conc 30.9 g/dL (31.6-35.5); Mean Corpuscular Hemoglobin 29.9 pg (28.0-33.3); Mean Corpuscular Volume 96.8 fL (83.0-100.0); Monocytes # 1.5 K/mcL (0.0-1.3); Monocytes % 6.7 %; Neutrophils # 17.3 K/mcL (1.6-8.9); Platelet Count 649 K/mcL (140-400); Red Blood Count 4.31 M/mcL (4.19-5.50); Red Cell Distribution Width 13.8 % (11.5-14.5); White Blood Count 21.7 K/mcL (4.3-11.1)
[2018-12-22 05:01] LABS: BUN/Creatinine Ratio 30 (6-26); Blood Urea Nitrogen 31 mg/dL (8-23); Carbon Dioxide 39 mEq/L (23-29); Chloride 89 mEq/L (98-107); Glucose 120 mg/dL (70-105); Osmolality,Calculated 292 (280-300); Potassium 4.6 mEq/L (3.5-5.1); Sodium 137 mEq/L (136-145); eGFR For African Americans > 60 (> 60); eGFR For Non-African Americans > 60 (> 60)
[2018-12-22] MEDS: Furosemide 40 MG/4 ML VIAL IVP SCH (10:02)
[2018-12-22] MEDS: Losartan/HCTZ 50-12.5 TABLET PO SCH (10:02)
[2018-12-22] MEDS: Gabapentin 300 MG CAPSULE PO SCH (10:03)
[2018-12-22] MEDS: Aspirin 81 MG TAB.CHEW PO SCH (10:03)
[2018-12-22] MEDS: Diltiazem CD (24hr) 180 MG CAPSULE PO SCH (10:03)
[2018-12-22] MEDS: *HR* HYDROcodone/Acet 5/325 mg TABLET PO PRN (10:03)
[2018-12-22] MEDS: predniSONE 20 MG TABLET PO SCH (10:03)
--- NOTE | 2018-12-22 10:08 | Cardiology Progress Note ---
<Mirza Mondragon - Last Filed: 12/22/18 10:33> Date of Encounter: 12/22/18 Time of Encounter: 10:30 Assessment and Plan (1) Shortness of breath Current Visit: Yes Status: Acute 1. Suspected current condition remains multifactoral with echo 12/19/18 EF 50-55% showing severe pulmonary hypertension in the setting of Left lower lobe PN as evident on chest x-ray reported from [facility]. 2. Chest x-ray 12/20/18; cardiac silhouette stable; hyperinflation lung marinelli; airspace changes left lung base, small left effusion. 3, SOB continues to improve. Pt. remains able to lay flat. Cummulative I/Os is -1905. Continue Lasix 40mg IV BID; add strict I/Os. 1.5L fluid restriction, daily weights. 4. Examination shows reduced BLL edema from 4+ RLL and 2+ LLL to 1+ BLL since diuresis. 5. Discussed with Dr. Briggs, pt. and family. Will continue diuresis and plan LHC for Sunday. 6. Cardiac rehab ordered. 7. Will make NPO after mind. (2) Elevated troponin Current Visit: Yes Status: Acute 1.Troponins 0.50, 0.64, 0.53 likely demand ischemia in the setting of COPD exacerbation with sepsis/PN; continues to deny chest pain, improvement in SOB. 2. EKG changes noted compared to previous from [facility] with abnormal Q wave/ST changes noted; Reviewed with Dr. Briggs and will plan LHC for Sunday. Will continue to monitor and trend if changes noted from current baseline. 3. On heparin gtt., continue. (3) Hypertension Current Visit: Yes Status: Acute 1. BP readings remain 130s/70s. 2. On home dose Cardizem 360mg PO daily, HCTZ/losartan 50/12.5, 2 each daily, continue. Qualifiers: Hypertension type: essential hypertension Qualified Code(s): I10 - Essential (primary) hypertension Discussion w patient/family: The assessment and plan as outlined above was discussed with the patient and/or family members who expressed understanding and agreement. All questions were answered. Thank you for involving us in the care of your patient. Please call with any questions. Subjective Principal diagnosis: SOB Interval history: 1. Continues to deny chest pain, SOB, palpitations, Diaphoresis. Objective Vital Signs, Last 4 Hours Temp Pulse Resp BP Pulse Ox 12/22/18 06:33 98.4 F 83 18 139/72 94 General: Conversant, No Apparent Distress HEENT: Atraumatic, Normocephaly, Mucus Membranes Moist Neck: No JVD, Normal carotid pulses Cardiac: Reg Rate and Rhythm, Normal S1 and S2, No Murmur Lungs: Other (exp. wheezes) Neuro: Alert and responsive, No focal deficits noted Abdomen: Soft, Non-Tender Skin: No rashes noted on visualized skin Musculoskeletal: No Chest Wall Tenderness Extremities: No Clubbing, No Cyanosis, Normal Pulses, Other (1+ pitting edema BLL) Results 12/22/18 04:26 12/22/18 04:26 Lab Results Laboratory Tests 12/22/18 12/22/18 04:26 04:26 Hgb 12.9 Hct 41.7 Plt Count 649 H BUN 31 H Creatinine 1.02 Est GFR (Non-Af Amer) > 60 Impressions Chest X-Ray 12/20/18 11:22 IMPRESSION: Airspace changes in the medial aspect of the left lung base and small left effusion. This is concerning for an infiltrate. Follow up to resolution is suggested. D/ / 12/20/2018 15:10:28 [facility]it[facility] Oakley MD / [facility] Interpreting Provider: Maritza Oakley MD Active Medications Acetaminophen (Tylenol) 650 mg PO Q6HR PRN PRN Reason: Mild Pain/Fever Stop: 06/20/19 14:52 Last Admin: 12/20/18 21:11 Dose: 650 mg Documented by: Hydrocodone Bitart/Acetaminophen ([place] 5-325 Mg) 1 tab PO Q4H PRN PRN Reason: moderate to severe pain Stop: 06/22/19 16:46 Last Admin: 12/22/18 10:03 Dose: 1 tab Documented by: Albuterol/Ipratropium (Duoneb) 3 ml IH [id number] PRN PRN Reason: Shortness Of Breath/Wheezing Stop: 06/20/19 17:44 Albuterol/Ipratropium (Duoneb) 3 ml IH [id number] [facility] Stop: 06/21/19 12:01 Last Admin: 12/22/18 08:20 Dose: 3 ml Documented by: Aspirin (Aspirin) 81 mg PO DAILY [facility] Stop: 06/21/19 09:01 Last Admin: 12/22/18 10:03 Dose: 81 mg Documented by: Atorvastatin Calcium (Lipitor) 40 mg PO HS [facility] Stop: 06/21/19 21:01 Last Admin: 12/21/18 21:21 Dose: 40 mg Documented by: Diltiazem HCl (Cardizem Cd) 360 mg PO DAILY [facility] Stop: 06/21/19 12:01 Last Admin: 12/22/18 10:03 Dose: 360 mg Documented by: Furosemide (Lasix) 40 mg IVP BIDDIURETIC [facility] Stop: 06/21/19 15:37 Last Admin: 12/22/18 10:02 Dose: 40 mg Documented by: Gabapentin (Neurontin) 300 mg PO BID [facility] Stop: 06/22/19 21:01 Last Admin: 12/22/18 10:03 Dose: 300 mg Documented by: HCTZ/Losartan Potassium (Hyzaar 50/12.5) 2 each PO DAILY [facility] Stop: 06/21/19 11:16 Last Admin: 12/22/18 10:02 Dose: 2 each Documented by: Heparin Sodium (Porcine) (Heparin) 4,000 unit IVP Q6HR PRN PRN Reason: SEE COMMENTS Stop: 06/20/19 23:48 Last Admin: 12/20/18 09:22 Dose: 4,000 unit Documented by: Heparin Sodium (Porcine) (Heparin) 2,000 unit IVP Q6H PRN PRN Reason: SEE COMMENTS Stop: 06/20/19 23:48 Last Admin: 12/20/18 16:49 Dose: 2,000 unit Documented by: Levofloxacin/Dextrose (Levaquin Premix 750mg/150 Ml) 750 mg in 150 mls @ 100 mls/hr IVPB Q24H [facility]; Protocol Stop: 06/20/19 16:01 Last Admin: 12/21/18 17:16 Dose: 100 mls/hr Documented by: Heparin Sodium/Dextrose (Heparin 25,000 Unit/250 Ml D5w) 25,000 unit in 250 mls @ 10.044 mls/hr IVC .Q24H [facility]; Protocol Stop: 06/20/19 23:46 Last Titration: 12/22/18 04:26 Dose: 18.04 unit/kg/hr, 15.1 mls/hr Documented by: Naloxone HCl (Narcan) 0.4 mg IVP Q2MPRN PRN PRN Reason: SEE COMMENTS Stop: 06/20/19 14:52 Prednisone (Prednisone) 40 mg PO DAILY [facility] Stop: 06/23/19 09:01 Last Admin: 12/22/18 10:03 Dose: 40 mg Documented by: Consult Discharge Plan - Plan Referrals: Malika Arriaga MD [Primary Care Provider] - HAS-BLED Score - Score Elderly: Age>65 years Medication usage predisposing to bleeding: Antiplatelet agents, NSAIDs, Anticoagulants Score: 2 <John Briggs - Last Filed: 12/22/18 12:08> Date of Encounter: 12/22/18 Assessment and Plan Discussion w patient/family: The assessment and plan as outlined above was discussed with the patient and/or family members who expressed understanding and agreement. All questions were answered. Thank you for involving us in the care of your patient. Please call with any questions. I have personally performed a face to face evaluation on this patient. I have reviewed and agree with the care plan. History and Exam by me shows: 73-year-old male history of multiple cardiac risk factors non-ST elevation myocardial infarction with EKG changes peak of 0.63. Risks benefits and alternatives of a LHC were discussed with patient and he agrees to proceed Objective Vital Signs, Last 4 Hours Temp Pulse Resp BP Pulse Ox 12/22/18 11:09 18 97 12/22/18 10:42 98.4 F 96 18 139/70 98 12/22/18 08:20 24 94 Results 12/22/18 04:26 12/22/18 04:26 Lab Results 12/22/18 12/22/18 04:26 04:26 WBC 21.7 H Hgb 12.9 Hct 41.7 Plt Count 649 H Sodium 137 Potassium 4.6 Chloride 89 L Carbon Dioxide 39 H BUN 31 H Creatinine 1.02 Glucose 120 H Calcium 10.0
--- NOTE | 2018-12-22 11:31 | Internal Med Progress Note ---
Hospitalist Progress Note - Encounter Date of Encounter: 12/22/18 Time of Encounter: 11:28 - Subjective Interval History: Evaluated patient earlier today. He complains of severe lower extremity pain especially in the right leg. He received [place] last night which seemed to help him. But this morning he rates the pain at 9-10/10 in severity. Shortness of breath has improved overall. Denies any chest pain or palpitations. - Exam Vitals: Temp Pulse Resp BP Pulse Ox 98.4 F 96 18 139/70 97 12/22/18 10:42 12/22/18 10:42 12/22/18 11:09 12/22/18 10:42 12/22/18 11:09 Exam: General: Patient is alert, mild distress, oriented x 3 Respiratory: Bilateral end expiratory wheezing. Improved inspiratory depth. Not using accessory muscles today. Cardiovascular: Regular rate and rhythm. s1 and s2 normal No clicks, rubs, gallops, or murmurs. Bilateral pedal edema greater on the right, improving. Diminished pedal pulses bilaterally but more on the night Abdomen: Abdomen is soft, nontender. Bowel sounds are present Musculoskeletal: Spontaneously moving all extremities Skin: warm, dry, intact. Neuro: Alert oriented x 3 normal cranial nerves, no focal deficits - Assessment and Plan (1) Sepsis Current Visit: Yes Status: Acute (2) Pneumonia Current Visit: Yes Status: Acute (3) COPD exacerbation Current Visit: Yes Status: Acute (4) Arterial insufficiency of lower extremity Current Visit: Yes Status: Acute (5) Elevated troponin Current Visit: Yes Status: Acute (6) COPD (chronic obstructive pulmonary disease) Current Visit: Yes Status: Chronic (7) Congestive heart failure Current Visit: Yes Status: Chronic DVT Prophylaxis: On IV heparin drip - Summary of Assessment and Plan Summary of Assessment and Plan: Sepsis due to pneumonia involving the left lung: Legionella and streptococcal a ntigen tests have been negative. Unknown organism. WBC 21.7. Likely due to steroid use in addition to underlying pneumonia. Continue Levaquin. Possible non-ST elevation [place]: Evaluated by cardiology. Plan for left heart catheterization tomorrow. Diastolic congestive heart failure: Continue Lasix. Transition to oral Lasix today. COPD exacerbation: Continue bronchodilators. Continue prednisone and oral steroids. Peripheral arterial disease: Vascular surgery consult appreciated. Continue aspirin, statin. Patient is a high risk candidate for surgical intervention. Continues to have significant rest pain. Patient had been placed back on gabapentin and [place] yesterday. This does not seem to be helping his pain at current dosage. Patient hesitant to increase doses of gabapentin. Discussed use of Lyrica with him. He has not been on this medication before. As such we will stop gabapentin and place him on Lyrica 75mg twice a day. Severe pulmonary hypertension: Continue O2 supplementation. Outpatient follow- up with pulmonary hypertension clinic. Moderate risk for complications. - Time Spent with Patient Total time spent is greater than 50% in coordination of care (as documented) at patient's floor/unit and/or counseling patient: Internal Medicine: Result - Labs CBC & Chem 7: 12/22/18 04:26 12/22/18 04:26 Labs: Short CBC 12/22/18 Range/Units 04:26 WBC 21.7 H (4.3-11.1) K/mcL Hgb 12.9 (12.9-16.9) g/dL Hct 41.7 (37.5-50.1) % Plt Count 649 H (140-400) K/mcL Neutrophils # 17.3 H (1.6-8.9) K/mcL BMP 12/22/18 04:26 Sodium 137 Potassium 4.6 Chloride 89 L Carbon Dioxide 39 H BUN 31 H Creatinine 1.02 Glucose 120 H Calcium 10.0 - ABG Interpretation ABG results: PT/INR, D-dimer PT 12.7 Seconds (9.4-12.1) H 12/21/18 04:18 - Impressions Impressions Chest X-Ray 12/20/18 11:22 IMPRESSION: Airspace changes in the medial aspect of the left lung base and small left effusion. This is concerning for an infiltrate. Follow up to resolution is suggested. D/ / 12/20/2018 15:10:28 [facility] Inter[facility]ting Provider: Maritza Oakley MD Consult Discharge Plan - Plan Referrals: Malika Arriaga MD [Primary Care Provider] - (1) Sepsis Qualifiers: Sepsis type: sepsis due to unspecified organism Sepsis acute organ dysfunction status: unspecified Qualified Code(s): A41.9 - Sepsis, unspecified organism (2) Pneumonia Qualifiers: Pneumonia type: due to unspecified organism Laterality: left Lung location: unspecified part of lung Qualified Code(s): J18.9 - Pneumonia, unspecified organism (6) COPD (chronic obstructive pulmonary disease) Qualifiers: COPD type: COPD with acute exacerbation Qualified Code(s): J44.1 - Chronic obstructive pulmonary disease with (acute) exacerbation (7) Congestive heart failure Qualifiers: Heart failure type: diastolic Heart failure chronicity: acute on chronic Qualified Code(s): I50.33 - Acute on chronic diastolic (congestive) heart failure
[2018-12-22] MEDS: Pregabalin 75 MG CAPSULE PO SCH ×2 (15:38→22:07)
[2018-12-22] MEDS: levoFLOXacin 750 MG/150 ML 750 MG/150 ML BAG IVPB SCH (16:28)
[2018-12-22] MEDS ORDERED: Furosemide 40 MG TABLET PO SCH (17:00)
[2018-12-22] MEDS: Heparin 25,000 UNIT/250 ML D5W 25,000 UNIT/250 ML IV.SOLN IVC SCH (22:16)
[2018-12-23] MEDS: Ipratropium/Albuterol Neb 3 ML IH SCH ×6 (03:38→23:31)
[2018-12-23 04:46] LABS: Basophils # 0.1 K/mcL (0.0-0.2); Basophils % 0.2 %; Eosinophils % 0.1 %; Hematocrit 41.7 % (37.5-50.1); Hemoglobin 13.1 g/dL (12.9-16.9); Immature Granulocytes % 1.2 % (0-4); Lymphocytes # 1.3 K/mcL (0.6-4.6); Lymphocytes % 5.1 %; Mean Corpuscular HGB Conc 31.4 g/dL (31.6-35.5); Mean Corpuscular Hemoglobin 29.9 pg (28.0-33.3); Mean Corpuscular Volume 95.2 fL (83.0-100.0); Monocytes # 1.5 K/mcL (0.0-1.3); Monocytes % 6.1 %; Platelet Count 699 K/mcL (140-400); Red Blood Count 4.38 M/mcL (4.19-5.50); Red Cell Distribution Width 13.7 % (11.5-14.5); Segmented Neutrophils % 87.3 %; White Blood Count 24.9 K/mcL (4.3-11.1)
[2018-12-23 05:01] LABS: Neutrophils # 21.7 K/mcL (1.6-8.9)
[2018-12-23 05:07] LABS: Calcium 9.9 mg/dL (8.6-10.3); Potassium 4.9 mEq/L (3.5-5.1)
[2018-12-23 05:30] LABS: Platelet Estimate Marked Increase (Normal)
[2018-12-23] MEDS ORDERED: Verapamil 5 MG/2 ML VIAL ONE (07:41)
[2018-12-23] MEDS ORDERED: *HR* FentaNYL (PF) 100 MCG/2 ML VIAL ONE (07:41)
[2018-12-23] MEDS ORDERED: *HR* Midazolam HCl 2 MG/2 ML VIAL ONE (07:41)
[2018-12-23] MEDS ORDERED: Nitroglycerin 1,000 MCG/10 ML VIAL IV ONE (07:42)
[2018-12-23] MEDS ORDERED: *HR* Heparin 10,000 UNIT/10 ML VIAL ONE (07:42)
[2018-12-23] MEDS ORDERED: Heparin 1,000 UNITS/500 mL 500 ML ONE (07:42)
[2018-12-23] MEDS ORDERED: 0.9 % Sodium Chloride 1,000 ML ONE ×2 (07:42→08:32)
[2018-12-23] MEDS ORDERED: Iopamidol 125 ML INFUS..BTL ONE (07:42)
[2018-12-23] MEDS: Diltiazem CD (24hr) 180 MG CAPSULE PO SCH (07:53)
[2018-12-23] MEDS: Aspirin 81 MG TAB.CHEW PO SCH (07:53)
[2018-12-23] MEDS: Losartan/HCTZ 50-12.5 TABLET PO SCH (07:53)
[2018-12-23] MEDS: predniSONE 20 MG TABLET PO SCH (07:54)
--- NOTE | 2018-12-23 08:15 | Internal Med Progress Note ---
<Viri Lazo - Last Filed: 12/23/18 12:49> Hospitalist Progress Note - Encounter Date of Encounter: 12/23/18 Time of Encounter: 12:45 - Subjective Interval History: Patient sitting up in bed. Reports that his right lower extremity pain is better controlled today. No shortness of breath. No chest pain or palpitations. - Exam Vitals: Temp Pulse Resp BP Pulse Ox 98.5 F 87 15 111/57 96 12/23/18 11:04 12/23/18 11:04 12/23/18 11:04 12/23/18 11:04 12/23/18 11:04 Exam: General: Patient is alert, mild distress, oriented x 3 Respiratory: Coarse breath sounds bilaterally, end expiratory wheezing. Cardiovascular: Regular rate and rhythm. s1 and s2 normal No clicks, rubs, gallops, or murmurs. No pedal edema Abdomen: Abdomen is soft, nontender. Bowel sounds are present Musculoskeletal: Spontaneously moving all extremities Skin: warm, dry, intact. Neuro: Alert oriented x 3 normal cranial nerves, no focal deficits - Assessment and Plan (1) Sepsis Current Visit: Yes Status: Acute (2) Pneumonia Current Visit: Yes Status: Acute (3) COPD exacerbation Current Visit: Yes Status: Acute (4) Arterial insufficiency of lower extremity Current Visit: Yes Status: Acute (5) Elevated troponin Current Visit: Yes Status: Acute (6) COPD (chronic obstructive pulmonary disease) Current Visit: Yes Status: Chronic (7) Congestive heart failure Current Visit: Yes Status: Chronic - Summary of Assessment and Plan Summary of Assessment and Plan: I saw evaluated and examined this patient and reviewed objective data including labs and my medical decision-making was reviewed with the medical student I agree with the documented findings, disposition and treatment plan as described except to any changes set forth below. We independently had [id number] contact with the patient. Sepsis due to pneumonia involving the left lung: Clinically patient is improving. Leukocytosis persists most likely due to steroid use. Will decrease prednisone dose. Continue antibiotic. Complete 7 day course. Acute kidney injury: Creatinine elevated today. Most likely due to aggressive diuresis. We will stop Lasix, hydrochlorothiazide and losartan. Monitor input and output. As left heart catheterization is planned, will consult nephrology to clear patient for this procedure. Possible non-ST elevation [place]: Evaluated by cardiology. Plan for left heart catheterization when okay from a nephrology standpoint. Currently on IV heparin. Diastolic congestive heart failure: Clinically stable. Lasix stopped for now given acute kidney injury. COPD exacerbation: Continue bronchodilators. Taper prednisone. Peripheral arterial disease: Patient continues to have rest pain but this is better controlled overall. Appears to have responded to Lyrica plus increased dose of pain medications. Will adjust Lyrica dosage renally. Continue supportive care. Continue aspirin and statin. Severe pulmonary hypertension: Continue O2 supplementation. Outpatient follow- up with pulmonary hypertension clinic. Thrombocytosis: Platelets 699 today. Etiology uncertain. Patient currently on IV heparin drip. Consider oncology follow-up after discharge for further workup. Moderate risk for complications. - Time Spent with Patient Total time spent is greater than 50% in coordination of care (as documented) at patient's floor/unit and/or counseling patient: Internal Medicine: Result - Labs CBC & Chem 7: 12/23/18 04:30 12/23/18 04:30 Labs: Short CBC 12/23/18 Range/Units 04:30 WBC 24.9 H (4.3-11.1) K/mcL Hgb 13.1 (12.9-16.9) g/dL Hct 41.7 (37.5-50.1) % Plt Count 699 H (140-400) K/mcL Neutrophils # 21.7 H (1.6-8.9) K/mcL BMP 12/23/18 04:30 Sodium 135 L Potassium 4.9 Chloride 86 L Carbon Dioxide 40 H* BUN 38 H Creatinine 1.58 H Glucose 139 H Calcium 9.9 - ABG Interpretation ABG results: PT/INR, D-dimer PT 12.7 Seconds (9.4-12.1) H 12/21/18 04:18 Consult Discharge Plan - Plan Referrals: Malika Arriaga MD [Primary Care Provider] - <Mike Heath - Last Filed: 12/23/18 17:33> Hospitalist Progress Note - Encounter Date of Encounter: 12/23/18 Time of Encounter: 09:06 - Subjective Interval History: Patient seen and examined. Reports having some pain in the right lower ext improving on medication. Last bowel movement was last night per patient. Denies any chest pain, SOB, cough, wheezing, fever, nausea, vomiting, Diarrhea, dysuria, or lightheadedness. - Exam Vitals: Temp Pulse Resp BP Pulse Ox 98.1 F 78 14 137/61 92 12/23/18 06:33 12/23/18 06:33 12/23/18 06:33 12/23/18 06:33 12/23/18 06:33 Exam: Gen: AOX3 Eyes: CECI, EOMI without conjunctivitis Throat: Black tongue likely due to tar from smoking. Moist mucous membranes. no oral ulcers or erythema. CV: RRR with no murmur Lung: Decreased lung volumes. CTA in all lung marinelli with no rhales, or crackles Abdomen: Soft, non-tender with no masses or organomegally palpated Neuro: CN II-XII intact with no focal deficits. Strength 4/5 in Upper and lower extremity Derm: Area of blood stasis in the right teresa. No signs of ulceration or abrasions in the region Ext: DP palpated in satya LE. Pedal edema 1+ satya - Assessment and Plan (1) Sepsis Current Visit: Yes Status: Acute Assessment and Plan: -Patient met SIRS criteria upon admission 12/19 with possible source of infection as pneumonia - Chest X ray 12/20 Airspace changes in the medial aspect of the left lung base and small left effusion. This is concerning for an infiltrate. - Urine strep and Legionella negative 12/19 -Pro calcitonin 0.15 on 12/19 - Lactic acid 0.8 on 12/19 Plan: -Continue Levaquin day 4 -BiPAP as needed -Continue to monitor (2) Pneumonia Current Visit: Yes Status: Acute Assessment and Plan: - Chest X ray 12/20 Airspace changes in the medial aspect of the left lung base and small left effusion. This is concerning for an infiltrate. Follow up to resolution is suggested Plan: - Cont Levoquin day 4 - Cont O2 NC as needed (3) COPD exacerbation Current Visit: Yes Status: Acute Assessment and Plan: -Increased SOB, non-productive cough, and increased O2 demand from baseline. Normally not on home O2 -Chronic 1PPD smoker Plan: -Continue O2 NC as needed. Wean as tolerated. - Cont prednisone 40 mg PO - Continue scheduled and PRN duonebs. -Use BIPAP as tolerated (4) Elevated troponin Current Visit: Yes Status: Acute Assessment and Plan: -[facility] ED troponins 0.3. Troponin at [facility] 12/19 was 0.64 and 12/20 is 0.53. -EKG at [facility] showed Sinus tachycardia with ST segment depressions at [facility] on 12/19 Plan: -Cont Heparin IV - Cont Asprin and Statin - Tentative Heart Cath scheduled for this morning (5) Congestive heart failure Current Visit: Yes Status: Chronic Assessment and Plan: -suspected congestive heart failure due +1 pitting edema to the midshin over past 2 days, shortness of breath. -Patient does not have a history of congestive heart failure but does have history of hypertension - BNP 36 12/19 - Echo 12/19 LVEF 50-55% with mild L ventricular systolic dysfunction. Atypical septal motion consistent with a bundle branch block. Dilated RV with severe pulmonary HTN Plan: -hold lasixs due to creatinine - [facility] scheduled for today - Strict I/O and daily weights (6) ISAEL (acute kidney injury) Current Visit: Yes Status: Acute Assessment and Plan: - Creatinine 1.58 today up from 0.85 on 12/20 - Nephrology consulted Plan: - Hold Lasix, Begin IVF -renal dosing of medications - Cont to monitor Creatinine and urinary output (7) Hypertension Current Visit: Yes Status: Acute Assessment and Plan: -Chronic HTN Lisinopril-HctZ and Cardizem Plan: - Continue home medications - Continue to monitor vital signs (8) Arterial insufficiency of lower extremity Current Visit: Yes Status: Acute Assessment and Plan: -intermittent discoloration and temperature difference for past 1 month in R Fo ot -Reports he had evaluated with Doppler at [facility] 12/18 that was negative for DVT. - Has not been on anticoagulation outpatient - Cyanosis, and temperature changes in foot were noticed on 12/19 at 23:49. Doppler Negative for DVT or SVT -JOE preliminary results 0.19 in the R LE and 0.42 L LE as seen on 12/20 -Vascular consult 12/21 High risk surgical candidate Plan: -continue with daily ASA and statin. - Cont Lyrica and [place] DVT Prophylaxis: On IV heparin drip - Time Spent with Patient Total time spent is greater than 50% in coordination of care (as documented) at patient's floor/unit and/or counseling patient: Internal Medicine: Result - Labs CBC & Chem 7: 12/23/18 04:30 12/23/18 13:03 Labs: Short CBC 12/23/18 Range/Units 04:30 WBC 24.9 H (4.3-11.1) K/mcL Hgb 13.1 (12.9-16.9) g/dL Hct 41.7 (37.5-50.1) % Plt Count 699 H (140-400) K/mcL Neutrophils # 21.7 H (1.6-8.9) K/mcL BMP 12/23/18 04:30 Sodium 135 L Potassium 4.9 Chloride 86 L Carbon Dioxide 40 H* BUN 38 H Creatinine 1.58 H Glucose 139 H Calcium 9.9 - ABG Interpretation ABG results: PT/INR, D-dimer PT 12.7 Seconds (9.4-12.1) H 12/21/18 04:18 - Impressions Impressions Chest X-Ray 12/20/18 11:22 IMPRESSION: Airspace changes in the medial aspect of the left lung base and small left effusion. This is concerning for an infiltrate. Follow up to resolution is suggested. D/ / 12/20/2018 15:10:28 [facility] Oakley [facility] / [facility] Interpreting Provider: Maritza Oakley MD <Viri Lazo - Last Filed: 12/23/18 12:49> (1) Sepsis Qualifiers: Sepsis type: sepsis due to unspecified organism Sepsis acute organ dysfunction status: unspecified Qualified Code(s): A41.9 - Sepsis, unspecified organism (2) Pneumonia Qualifiers: Pneumonia type: due to unspecified organism Laterality: left Lung location: unspecified part of lung Qualified Code(s): J18.9 - Pneumonia, unspecified organism (6) COPD (chronic obstructive pulmonary disease) Qualifiers: COPD type: COPD with acute exacerbation Qualified Code(s): J44.1 - Chronic obstructive pulmonary disease with (acute) exacerbation (7) Congestive heart failure Qualifiers: Heart failure type: diastolic Heart failure chronicity: acute on chronic Q ualified Code(s): I50.33 - Acute on chronic diastolic (congestive) heart failure <Mike Heath - Last Filed: 12/23/18 17:33> (1) Sepsis Qualifiers: Sepsis type: sepsis due to unspecified organism Sepsis acute organ dysfunction status: unspecified Qualified Code(s): A41.9 - Sepsis, unspecified organism (2) Pneumonia Qualifiers: Pneumonia type: due to unspecified organism Laterality: left Lung location: unspecified part of lung Qualified Code(s): J18.9 - Pneumonia, unspecified organism (5) Congestive heart failure Qualifiers: Heart failure type: diastolic Heart failure chronicity: acute on chronic Qualified Code(s): I50.33 - Acute on chronic diastolic (congestive) heart failure (7) Hypertension Qualifiers: Hypertension type: essential hypertension Qualified Code(s): I10 - Essential (primary) hypertension
--- NOTE | 2018-12-23 08:36 | Event Note ---
Date of Encounter: 12/23/18 Time of Encounter: 08:30 - Cardiology Event Note Laboratory Tests 12/23/18 12/23/18 04:30 04:30 Hgb 13.1 Hct 41.7 BUN 38 H Creatinine 1.58 H Est GFR (Non-Af Amer) 43 L Selected Entries 12/23/18 06:33 Temperature 98.1 F Pulse Rate 78 Respiratory Rate 14 Blood Pressure 137/61 O2 Sat by Pulse Oximetry 92 Oxygen Flow Rate (LPM) 6 Discussed plan of care and LHC for today; denies chest pain, increased SOB. Understands pre-procedure education given without any questions. Acute changes noted to renal function. Lasix IV stopped. Will recheck BMP at 1200 and re-evaluate. Discussed and reviewed with Dr. Lujan and Dr. Wallace.
--- NOTE | 2018-12-23 09:00 | Electrocardiograph Report ---
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
[2018-12-23] MEDS: Pregabalin 75 MG CAPSULE PO SCH (10:09)
[2018-12-23 13:41] LABS: BUN/Creatinine Ratio 30 (6-26); Blood Urea Nitrogen 38 mg/dL (8-23); Carbon Dioxide 43 mEq/L (23-29); Chloride 87 mEq/L (98-107); Glucose 132 mg/dL (70-105); Osmolality,Calculated 291 (280-300); Sodium 135 mEq/L (136-145); eGFR For African Americans > 60 (> 60); eGFR For Non-African Americans 56 (> 60)
--- NOTE | 2018-12-23 13:46 | Event Note ---
Date of Encounter: 12/23/18 Time of Encounter: 13:45 - Cardiology Event Note Laboratory Tests 12/23/18 12/23/18 04:30 13:03 Creatinine 1.58 H 1.26
[2018-12-23] MEDS ORDERED: 0.9 % Sodium Chloride 1,000 ML IVC SCH (14:45)
[2018-12-23] MEDS: *HR* OxyCODONE Immed Rel 5 MG TABLET PO PRN (15:44)
[2018-12-23] MEDS ORDERED: 0.9 % Sodium Chloride 500 ML IVC SCH (16:00)
[2018-12-23] MEDS: Heparin 25,000 UNIT/250 ML D5W 25,000 UNIT/250 ML IV.SOLN IVC SCH (16:01)
[2018-12-23] MEDS: levoFLOXacin 750 MG/150 ML 750 MG/150 ML BAG IVPB SCH (16:03)
--- NOTE | 2018-12-23 16:48 | Nephrology Consult Note ---
Date of Encounter: 12/23/18 Time of Encounter: 09:35 Assessment and Plan (1) ISAEL (acute kidney injury) Current Visit: Yes Status: Acute Nonoliguric acute kidney injury of multifactorial etiology. The patient came in with orthopnea (he was unable to lay flat/supine for cardiology) and complaints of shortness of breath. He was placed on diuretics, but I suspect his dyspnea/shortness of breath was primarily respiratory in nature. Though he does have some edema, I recommend diuresing him much slower as he is at risk for worsening the metabolic alkalosis secondary to his chronic pulmonary respiratory acidosis and the diuretics will induce a contraction alkalosis. I recommend holding diuretics, if able. If he is unable to lay flat, consider more pulmonary interventions such as breathing treatments. He reported feeling significantly more capable of breathing and more mobile after the diuresis, however, so diuresing him was to an extent helpful. It may have unmasked his true underlying renal function. As discussed with the primary team, I would hold the diuretics at least for today, and consider giving some IV fluids back. I recommend checking a retroperitoneal ultrasound, checking a urinalysis with microscopy, and other workup to rule out any other potential etiologies for the elevated creatinine. I recommend keeping strict I's and O's and daily weights on patients who are being treated with diuretics, as well as renal dosing and avoidance of concomitant nephrotoxic exposures if able. If he were to have a heart catheter, it is likely acceptable so long as his renal function is followed within 72 hours afterwards. I recommend following best practices/evidence-based medicine and Mucomyst is not indicated before IV contrast exposure as it has been shown to be no better than placebo. Thank you for consulting the [facility], and I will follow with you. (2) Metabolic alkalosis with respiratory acidosis Current Visit: Yes Status: Acute See above (3) Arterial insufficiency of lower extremity Current Visit: Yes Status: Acute Screen for Renal Artery stenosis: check renal artery doppler (in addition to the retroperitoneal U/S complete). (4) COPD exacerbation Current Visit: Yes Status: Acute (5) Hypertension Current Visit: Yes Status: Acute Holding any JADE or ARB d/t the Isael. Qualifiers: Hypertension type: essential hypertension Qualified Code(s): I10 - Essential (primary) hypertension (6) Shortness of breath Current Visit: Yes Status: Acute History of Present Illness - Reason for Consult Consult date: 12/23/18 Acute Kidney Injury, Chronic Kidney Disease Requesting physician: Viri Lazo - Chief Complaint ISAEL and assistance with Diuresis - History of Present Illness The patient is a very pleasant 73-year-old male with a past medical history of hypertension, COPD, tobacco use, and et al who presented with chest pain and shortness of breath as well as swelling. He wHe as placed on diuretics, and his serum creatinine was found to be worsening; nephrology was consulted. I reviewed the progress notes, vital signs, medication list, labs, and diagnostic imaging: The cardiology notes, the patient was not able to lay flat, and diuretics were added. The patient also affirms that he was taking considerably large amounts of NSAIDs just prior to admission due to back pain. He did not affirm having a prior ct tech. He did not affirm N/V/D. No prior gout or prior renal stones, he affirmed. Past Med Surg Social Fam HX - Past Medical History Medical history: COPD, hypertension Additional medical history: smoker - Past Surgical History Surgical History: no surgical history - Social History Smoking Status: Current every day smoker Packs per day: 1 Alcohol use: none Drug use: none - Family History Mother Living Status: Age at : 60 Cause of : cancer Hx Family Cancer: Yes Hx Family GI Disorders: Yes Hx Family Medical Disorders: Yes Medications and Allergies Albuterol Sulfate [Albuterol Sulfate Hfa] 2 puff IH QID PRN 12/19/18 [History] Diltiazem HCl [Cardizem Cd] 360 mg PO DAILY 12/19/18 [History] Ipratropium/Albuterol Neb [Duoneb] 3 ml IH Q6H PRN 12/19/18 [History] Losartan/Hydrochlorothiazide [Losartan-Hctz 100-25 mg Tab] 1 tab PO DAILY 12/19/18 [History] HYDROcodone/Acet 5/325 mg [[place] 5-325 mg] 1 tab PO TID PRN 12/20/18 [History] Allergy/AdvReac Type Severity Reaction Status Date / Time No Known Allergies Allergy Verified 12/19/18 17:32 Review of Systems All Systems: reviewed and no additional remarkable complaints except as stated Exam - Vital Signs Vital signs: Initial Vital Signs Pulse Resp BP Pulse Ox 101 22 140/68 93 12/19/18 15:02 12/19/18 15:02 12/19/18 15:02 12/19/18 15:02 Vital Signs - Last 8 Hours Temp Pulse Resp BP Pulse Ox 12/23/18 15:35 18 94 12/23/18 15:00 98.4 F 96 14 118/60 96 12/23/18 11:04 98.5 F 87 15 111/57 96 12/23/18 10:38 18 95 Intake and Output 12/23/18 12/23/18 12/23/18 07:59 15:59 23:59 Intake Total 99 / 490 391 / 490 Output Total 200 / 900 700 / 900 Balance -101 / -410 -309 / -410 Intake: IV Fluids 99 / 250 151 / 250 Heparin 25,000 UNIT/250 ML D5W 99 / 250 151 / 250 25,000 unit In 250 ml @ 12 UNIT /KG/HR 10.044 mls/hr IVC .Q24H [facility]ERIE Rx#:[id number] Oral 0 / 240 240 / 240 Output: Urine 200 / 900 700 / 900 Other: Meal Lunch Percent of Meal Consumed 100% Weight 81.4 kg Patient Weight 12/23/18 23:59 Weight 81.4 kg - General Appearance General appearance: well-developed, well-nourished, cachectic, frail EENT: ATNC, PERRL, mucous membranes dry Neck: no JVD, supple Respiratory: no kyphosis, wheezing Cardiology: edema (trace to 1+ easily pitting pretibial edema bilaterally; no hand edema) Gastrointestinal: normoactive bowel sounds, no guarding Integumentary: warm and dry, ecchymotic (with diffuse bilateral upper extremity bruising) Neurologic: no focal deficit, no asterixis, alert and oriented x3 Musculoskeletal: no deformities, no cyanosis, no clubbing Psychiatric: mood/affect appropriate, cooperative Results - Lab Results 12/23/18 04:30 12/23/18 13:03 Most recent lab results 12/23/18 12/23/18 04:30 13:03 Calcium 9.9 10.0 Consult Discharge Plan - Plan Referrals: Malika Arriaga MD [Primary Care Provider] -
[2018-12-23] MEDS: *HR* HYDROcodone/Acet 5/325 mg TABLET PO PRN ×2 (18:35→23:05)
[2018-12-23] MEDS: Pregabalin 25 MG CAPSULE PO SCH (21:17)
[2018-12-23 23:10] LABS: Bilirubin,Urine Negative (Negative); Blood,Urine Negative (Negative); Clarity,Urine Clear (Clear); Color,Urine Yellow (Yellow); Glucose,Urine (UA) Normal (Normal); Ketones,Urine Negative (Negative); Leukocyte Esterase,Urine Negative (Negative); Nitrite,Urine Negative (Negative); Protein,Urine Negative (Neg-Trace); Specific Gravity,Urine 1.014 (1.010-1.025); Urobilinogen,Urine Normal (Normal)
[2018-12-23 23:14] LABS: Bacteria,Urine None Seen per hpf (None-Few); Hyaline Casts,Urine None Seen per lpf (None-Few); RBC,Urine 0-3 per hpf (0-3); Squamous Epithelial Cell,Urine Few per lpf (None-Few); WBC,Urine 0-3 per hpf (0-3)
[2018-12-23 23:25] LABS: Creatinine,Urine 77 mg/dL; Microalbumin,Urine < 7 mg/L
[2018-12-24] MEDS: Ipratropium/Albuterol Neb 3 ML IH SCH ×6 (04:06→23:33)
[2018-12-24] MEDS: *HR* OxyCODONE Immed Rel 5 MG TABLET PO PRN ×2 (04:36→10:59)
[2018-12-24 05:09] LABS: Basophils % 0.2 %; Eosinophils % 0.1 %; Hematocrit 39.5 % (37.5-50.1); Hemoglobin 12.4 g/dL (12.9-16.9); Immature Granulocytes % 1.2 % (0-4); Lymphocytes # 1.7 K/mcL (0.6-4.6); Lymphocytes % 7.1 %; Mean Corpuscular HGB Conc 31.4 g/dL (31.6-35.5); Mean Corpuscular Volume 95.4 fL (83.0-100.0); Mean Platelet Volume 9.4 fL (9.4-12.4); Monocytes # 1.6 K/mcL (0.0-1.3); Monocytes % 6.9 %; Neutrophils # 19.7 K/mcL (1.6-8.9); Platelet Count 600 K/mcL (140-400); Red Blood Count 4.14 M/mcL (4.19-5.50); Red Cell Distribution Width 13.9 % (11.5-14.5); Segmented Neutrophils % 84.5 %; White Blood Count 23.3 K/mcL (4.3-11.1)
[2018-12-24 05:25] LABS: BUN/Creatinine Ratio 34 (6-26); Blood Urea Nitrogen 44 mg/dL (8-23); Calcium 9.2 mg/dL (8.6-10.3); Carbon Dioxide 37 mEq/L (23-29); Chloride 89 mEq/L (98-107); Glucose 147 mg/dL (70-105); Magnesium 2.2 mg/dL (1.6-2.6); Osmolality,Calculated 292 (280-300); Phosphorous 3.4 mg/dL (2.7-4.5); Potassium 4.6 mEq/L (3.5-5.1); Sodium 134 mEq/L (136-145); Uric Acid 9.8 mg/dL (2.3-7.6); eGFR For African Americans > 60 (> 60); eGFR For Non-African Americans 53 (> 60)
--- NOTE | 2018-12-24 07:31 | Internal Med Progress Note ---
<Viri Lazo - Last Filed: 12/24/18 12:11> Hospitalist Progress Note - Encounter Date of Encounter: 12/24/18 Time of Encounter: 09:50 - Subjective Interval History: Patient sitting up in bed. Comfortable. Denies any significant shortness of breath. Continues to have rest pain in his right lower extremity which improves when he is sitting up. Has not noticed any significant changes since starting Lyrica. No chest pain or palpitations. No nausea or vomiting. Has been nothing by mouth now for planned left heart catheterization today. No dysuria or hematuria - Exam Vitals: Temp Pulse Resp BP Pulse Ox 97.7 F 79 18 130/62 100 12/24/18 06:26 12/24/18 11:09 12/24/18 11:03 12/24/18 11:09 12/24/18 11:09 Exam: General: Patient is alert, mild distress, oriented x 3 Respiratory: Mild end expiratory wheezing. Diminished breath sounds at both bases Cardiovascular: Regular rate and rhythm. s1 and s2 normal No clicks, rubs, gal lops, or murmurs. Improved pedal edema bilaterally. Forward pedal pulses especially on right Abdomen: Abdomen is soft, nontender. Bowel sounds are present Musculoskeletal: Spontaneously moving all extremities Skin: warm, dry, intact. Neuro: Alert oriented x 3 normal cranial nerves, no focal deficits - Assessment and Plan (1) Sepsis Current Visit: Yes Status: Acute (2) Pneumonia Current Visit: Yes Status: Acute (3) COPD exacerbation Current Visit: Yes Status: Acute (4) Arterial insufficiency of lower extremity Current Visit: Yes Status: Acute (5) Elevated troponin Current Visit: Yes Status: Acute (6) COPD (chronic obstructive pulmonary disease) Current Visit: Yes Status: Chronic (7) Congestive heart failure Current Visit: Yes Status: Chronic - Time Spent with Patient Total time spent is greater than 50% in coordination of care (as documented) at patient's floor/unit and/or counseling patient: Internal Medicine: Result - Labs CBC & Chem 7: 12/24/18 04:16 12/24/18 04:16 Labs: Short CBC 12/24/18 Range/Units 04:16 WBC 23.3 H (4.3-11.1) K/mcL Hgb 12.4 L (12.9-16.9) g/dL Hct 39.5 (37.5-50.1) % Plt Count 600 H (140-400) K/mcL Neutrophils # 19.7 H (1.6-8.9) K/mcL BMP 12/23/18 12/24/18 13:03 04:16 Sodium 135 L 134 L Potassium 5.0 4.6 Chloride 87 L 89 L Carbon Dioxide 43 H* 37 H BUN 38 H 44 H Creatinine 1.26 1.31 H Glucose 132 H 147 H Calcium 10.0 9.2 Urine 12/23/18 Range/Units 22:50 Urine Color Yellow (Yellow) Urine Clarity Clear (Clear) Urine pH 6.0 (5.0-8.0) pH Units Ur Specific [place] 1.014 (1.010-1.025) Urine Protein Negative (Neg-Trace) mg/dL Urine Glucose (UA) Normal (Normal) mg/dL - ABG Interpretation ABG results: PT/INR, D-dimer PT 12.7 Seconds (9.4-12.1) H 12/21/18 04:18 - Impressions Impressions Retroperitoneum Ultrasound 12/23/18 21:30 IMPRESSION: Unremarkable appearance the kidneys. Prostate gland enlargement. The urinary bladder is distended as above. D/ / Vera Rolle Cha, MD / Vera Rolle Cha, MD Interpreting Provider: Vera Rolle Cha, MD Consult Discharge Plan - Plan Referrals: Malika Arriaga MD [Primary Care Provider] - - Attending Attestation I saw evaluated and examined this patient and reviewed objective data including labs and my medical decision-making was reviewed with the medical student I agree with the documented findings, disposition and treatment plan as described except to any changes set forth below. We independently had [id number] contact with the patient. Sepsis due to pneumonia involving the left lung: Clinically resolving. Continue Levaquin to complete 7 day course. Leukocytosis persists most likely due to steroid use. Acute respiratory failure with hypoxia: Continue O2 supplementation and wean FiO2 as tolerated. He will need evaluation for home oxygen prior to discharge. Patient is presently on 5 L O2 supplementation. Will order incentive spirometry. Wean FiO2 as tolerated. Acute kidney injury: Continue to hold diuretics. Creatinine 1.31 today. Stable. Nephrology input appreciated. Possible non-ST elevation NM: Evaluated by cardiology. Left heart catheterization today. Continue IV heparin. Diastolic congestive heart failure: Clinically stable. Lasix stopped for now given acute kidney injury. COPD exacerbation: Continue bronchodilators. Completed 5 day prednisone course. Peripheral arterial disease: Evaluated by vascular surgery and no intervention recommended. Continue aspirin, statin. On Lyrica for rest pain. Assess response and increase medication regimen as tolerated. Patient was previously on gabapentin and he has been switched to Lyrica as he was not having any symptom relief with gabapentin. Severe pulmonary hypertension: Continue O2 supplementation. Outpatient follow-u p with pulmonary hypertension clinic. Thrombocytosis: Stable. Platelet 600 today. Etiology uncertain. Consider oncology follow-up after discharge for further workup. Moderate risk for complications. <Mike Heath - Last Filed: 12/24/18 15:07> Hospitalist Progress Note - Encounter Date of Encounter: 12/24/18 Time of Encounter: 08:30 - Subjective Interval History: Patient seen and examined at bedside. Reports that he is still having intermittent LE pain that is releived by sitting up. Says that there is no appreciable releive of his pain since changing medications. Denies any Fevers, chills, Light headedness, Chest pain, Wheezing, SOB, diarhea, or dysuria. - Exam Vitals: Temp Pulse Resp BP Pulse Ox 97.7 F 92 16 141/66 94 12/24/18 06:26 12/24/18 06:26 12/24/18 05:41 12/24/18 06:26 12/24/18 06:26 Exam: Gen: AOx3 Eyes:CECI, EOMI with no conjunctivitis Throat:Black discoloration of tongue from smoking is improving. Moist mucous m embranes with no oral ulcers or pharyngeal erythema CV: RRR with no murmur Resp: Decreased lung volumes. CTA in all marinelli with no wheeze or crackles GI:Soft, non-tender with no organomegally or masses palpated Neuro: CN II-XII intact with no focal deficits. Upper and lower extremity strength 4/5 Ext: DP weak in right lower ext. No LE edema present satya. Derm: Signs of venous/arterial stasis in right 1st and 5th toes, as well as calcaneous. No trauma or ulcers present on foot. - Assessment and Plan (1) Sepsis Current Visit: Yes Status: Acute Assessment and Plan: -Patient met SIRS criteria upon admission 12/19 with possible source of infection as pneumonia - Chest X ray 12/20 Airspace changes in the medial aspect of the left lung base and small left effusion. This is concerning for an infiltrate. - Urine strep and Legionella negative 12/19 -Pro calcitonin 0.15 on 12/19 - Lactic acid 0.8 on 12/19 - WBC count today 23.3 likely secondary to steroid use Plan: -Continue Levaquin day 5 of 7 -BiPAP as needed -Continue to monitor (2) Pneumonia Current Visit: Yes Status: Acute Assessment and Plan: - Chest X ray 12/20 Airspace changes in the medial aspect of the left lung base and small left effusion. This is concerning for an infiltrate. Follow up to resolution is suggested Plan: - Cont Levoquin day 5 of 7 - Cont O2 NC as needed (3) COPD exacerbation Current Visit: Yes Status: Acute Assessment and Plan: - On admission increased SOB, non-productive cough, and increased O2 demand from baseline. Normally not on home O2 -Chronic 1PPD smoker Plan: -Continue O2 NC as needed. Wean as tolerated. - continue prednisone, day 4 of 5 day burst - Continue scheduled and PRN duonebs. -Use BIPAP as tolerated (4) Elevated troponin Current Visit: Yes Status: Acute Assessment and Plan: -[facility] troponins 0.3. Troponin at [facility] 12/19 was 0.64 and 12/20 is 0.53. -EKG at [facility] showed Sinus tachycardia with ST segment depressions at [facility] on 12/19 - [facility] Cath from 12/23 postponed till today due to creatinine bump Plan: -Cont Heparin IV - Cont Asprin and Statin - Tentative Heart Cath scheduled for this morning (5) Congestive heart failure Current Visit: Yes Status: Chronic Assessment and Plan: -suspected congestive heart failure due +1 pitting edema to the midshin over past 2 days, shortness of breath. -Patient does not have a history of congestive heart failure but does have hi story of hypertension - BNP 36 12/19 - Echo 12/19 LVEF 50-55% with mild L ventricular systolic dysfunction. Atypical septal motion consistent with a bundle branch block. Dilated RV with severe pulmonary HTN - BNP today shows 163 down from 572 on 12/20 Plan: -hold lasixs and Losartan/HCTZ due to creatinine - [facility] scheduled for today - Strict I/O and daily weights (6) ISAEL (acute kidney injury) Current Visit: Yes Status: Acute Assessment and Plan: - Creatinine 1.31 today down from 1.58 on 12/20 - Nephrology consulted - Retroperitoneal ultrasound on 12/23 Unremarkable appearance the kidneys. Prostate gland enlargement. The urinary bladder is distended. - U/A on 12/23 within normal limits with no bacteria or WBC present Plan: - Hold Lasix, Begin IVF -renal dosing of medications - Strict I/O - Cont to monitor Creatinine and urinary output for 72 hours after heart cath (7) Hypertension Current Visit: Yes Status: Acute Assessment and Plan: -Chronic HTN losartan-HctZ and Cardizem - Creatinine 1.31 down from 1.58 on 12/23 Plan: - Losartan/HCTZ being held due to creatinine bump to 1.58 on 12/23 - Cont cardizem - Continue to monitor vital signs (8) Arterial insufficiency of lower extremity Current Visit: Yes Status: Acute Assessment and Plan: -intermittent discoloration and temperature difference for past 1 month in R Fo ot -Reports he had evaluated with Doppler at [facility] 12/18 that was negative for DVT. - Has not been on anticoagulation outpatient - Cyanosis, and temperature changes in foot were noticed on 12/19 at 23:49. Doppler Negative for DVT or SVT -JOE preliminary results 0.19 in the R LE and 0.42 L LE as seen on 12/20 -Vascular consult 12/21 High risk surgical candidate Plan: -continue with daily ASA and statin. - Cont Lyrica and [place] (9) Moderate to severe pulmonary hypertension Current Visit: Yes Status: Acute Assessment and Plan: - On presentation shortness of breath with increased oxygen demand - Echo 12/19 LVEF 50-55% with mild L ventricular systolic dysfunction. Atypical se ptal motion consistent with a bundle branch block. Dilated RV with severe pulmonary HTN Plan -Continue O2 supplementation - Follow with pulmonary hypertension clinic upon discharge (10) Thrombocytosis Current Visit: Yes Status: Acute Assessment and Plan: -Platelets down to 600 today down from 699 on 12/23 . - Unknown Etiology Plan: - Patient currently on IV heparin drip - oncology follow-up after discharge for further workup DVT Prophylaxis: On IV heparin drip - Time Spent with Patient Total time spent is greater than 50% in coordination of care (as documented) at patient's floor/unit and/or counseling patient: Internal Medicine: Result - Labs CBC & Chem 7: 12/24/18 04:16 12/24/18 04:16 Labs: Short CBC 12/24/18 Range/Units 04:16 WBC 23.3 H (4.3-11.1) K/mcL Hgb 12.4 L (12.9-16.9) g/dL Hct 39.5 (37.5-50.1) % Plt Count 600 H (140-400) K/mcL Neutrophils # 19.7 H (1.6-8.9) K/mcL BMP 12/23/18 12/24/18 13:03 04:16 Sodium 135 L 134 L Potassium 5.0 4.6 Chloride 87 L 89 L Carbon Dioxide 43 H* 37 H BUN 38 H 44 H Creatinine 1.26 1.31 H Glucose 132 H 147 H Calcium 10.0 9.2 Urine 12/23/18 Range/Units 22:50 Urine Color Yellow (Yellow) Urine Clarity Clear (Clear) Urine pH 6.0 (5.0-8.0) pH Units Ur Specific [place] 1.014 (1.010-1.025) Urine Protein Negative (Neg-Trace) mg/dL Urine Glucose (UA) Normal (Normal) mg/dL - ABG Interpretation ABG results: PT/INR, D-dimer PT 12.7 Seconds (9.4-12.1) H 12/21/18 04:18 - Impressions Impressions Retroperitoneum Ultrasound 12/23/18 21:30 IMPRESSION: Unremarkable appearance the kidneys. Prostate gland enlargement. The urinary bladder is distended as above. D/ / Vera Rolle Cha, MD / Vera Rolle Cha, MD Interpreting Provider: Vera Rolle Cha, MD <Viri Lazo - Last Filed: 12/24/18 12:11> (1) Sepsis Qualifiers: Sepsis type: sepsis due to unspecified organism Sepsis acute organ dysfu nction status: unspecified Qualified Code(s): A41.9 - Sepsis, unspecified organism (2) Pneumonia Qualifiers: Pneumonia type: due to unspecified organism Laterality: left Lung location: unspecified part of lung Qualified Code(s): J18.9 - Pneumonia, unspecified organism (6) COPD (chronic obstructive pulmonary disease) Qualifiers: COPD type: COPD with acute exacerbation Qualified Code(s): J44.1 - Chronic obstructive pulmonary disease with (acute) exacerbation (7) Congestive heart failure Qualifiers: Heart failure type: diastolic Heart failure chronicity: acute on chronic Qualified Code(s): I50.33 - Acute on chronic diastolic (congestive) heart failure <Mike Heath - Last Filed: 12/24/18 15:07> (1) Sepsis Qualifiers: Sepsis type: sepsis due to unspecified organism Sepsis acute organ dysfunction status: unspecified Qualified Code(s): A41.9 - Sepsis, unspecified organism (2) Pneumonia Qualifiers: Pneumonia type: due to unspecified organism Laterality: left Lung location: unspecified part of lung Qualified Code(s): J18.9 - Pneumonia, unspecified organism (5) Congestive heart failure Qualifiers: Heart failure type: diastolic Heart failure chronicity: acute on chronic Qualified Code(s): I50.33 - Acute on chronic diastolic (congestive) heart failure (7) Hypertension Qualifiers: Hypertension type: essential hypertension Qualified Code(s): I10 - Essential (primary) hypertension
[2018-12-24] MEDS: Pregabalin 25 MG CAPSULE PO SCH ×3 (08:33→21:28)
[2018-12-24] MEDS: Diltiazem CD (24hr) 180 MG CAPSULE PO SCH (08:33)
[2018-12-24] MEDS: *HR* HYDROcodone/Acet 5/325 mg TABLET PO PRN (08:33)
[2018-12-24] MEDS: predniSONE 20 MG TABLET PO SCH (08:33)
[2018-12-24] MEDS: Aspirin 81 MG TAB.CHEW PO SCH (08:33)
--- NOTE | 2018-12-24 09:42 | Event Note ---
Date of Encounter: 12/24/18 Time of Encounter: 09:40 - Cardiology Event Note Laboratory Tests 12/24/18 12/24/18 04:16 04:16 WBC 23.3 H Hgb 12.4 L Hct 39.5 BUN 44 H Creatinine 1.31 H Est GFR (Non-Af Amer) 53 L Selected Entries 12/24/18 06:26 Temperature 97.7 F Pulse Rate 92 Blood Pressure 141/66 O2 Sat by Pulse Oximetry 94 Oxygen Delivery Method Nasal Cannula Discussed and reviewed with Dr. Mercedes Saldana. Plan for [facility] today. HAS-BLED Score - Score Elderly: Age>65 years Medication usage predisposing to bleeding: Antiplatelet agents, NSAIDs, Anticoagulants Score: 2
--- NOTE | 2018-12-24 10:03 | Vascular/[facility]as Progress Note ---
Date of Encounter: 12/23/18 Time of Encounter: 16:45 - Assessment and plan (1) Atherosclerosis of [place] arteries of extremities with intermittent claudication, bilateral legs Current Visit: Yes Status: Chronic The patient reports nocturnal rest pain in the right foot. He has no signs or symptoms of acute limb threatening ischemia. A severe chronic peripheral vascular disease. He is duplex reveals a right superficial femoral artery occlusion as well as tibial disease. He likely has inflow disease as well. Ultimately the patient will require surgical intervention. However if this time he is not a candidate given his acute medical problems. He is currently requiring 15 L of oxygen has a white count 22,000 secondary to his pneumonia. The patient be reassessed after the weekend. Continue daily aspirin. Provide adequate pain control for his nocturnal rest pain. (2) COPD (chronic obstructive pulmonary disease) Current Visit: Yes Status: Chronic Qualifiers: COPD type: COPD with acute exacerbation Qualified Code(s): J44.1 - Chronic obstructive pulmonary disease with (acute) exacerbation (3) Congestive heart failure Current Visit: Yes Status: Chronic The patient is currently being evaluated by Cardiology for congestive heart failure. Qualifiers: Heart failure type: diastolic Heart failure chronicity: acute on chronic Qualified Code(s): I50.33 - Acute on chronic diastolic (congestive) heart failure (4) Pneumonia Current Visit: Yes Status: Acute The patient is currently being treated for pneumonia. Qualifiers: Pneumonia type: due to unspecified organism Laterality: left Lung location: unspecified part of lung Qualified Code(s): J18.9 - Pneumonia, unspecified organism (5) Hypertension Current Visit: Yes Status: Acute The patient was counseled regarding atherosclerotic risk factor reduction. Qualifiers: Hypertension type: essential hypertension Qualified Code(s): I10 - Essential (primary) hypertension - Subjective Interval history: The patient reports his breathing has improved. He is requiring less oxygen. He reports adequate pain control. He denies any chest pain. Vital Signs, Last 4 Hours Temp Pulse Resp BP Pulse Ox 12/24/18 08:23 18 93 12/24/18 06:26 97.7 F 92 141/66 94 - Physical Examination General: Present: Conversant HEENT: Present: Pupils equal Cardiac: Present: Reg Rate and Rhythm Lungs: Present: Normal Breath Sounds Neuro: Present: Alert and responsive, No focal deficits noted Vascular: Present: Normal capillary refill, Pulse, absent (Bilateral pedal pulses are absent), Pulse, normal (Left femoral) Abdomen: Present: Soft Results 12/27/18 02:37 12/27/18 02:37 Lab Results, Last 24 hours 12/23/18 12/24/18 12/24/18 13:03 04:16 04:16 WBC 23.3 H Hgb 12.4 L Hct 39.5 Plt Count 600 H Sodium 135 L 134 L Potassium 5.0 4.6 Chloride 87 L 89 L Carbon Dioxide 43 H* 37 H BUN 38 H 44 H Creatinine 1.26 1.31 H Glucose 132 H 147 H Calcium 10.0 9.2 Magnesium B-Natriuretic Peptide 12/24/18 12/24/18 04:16 04:16 WBC Hgb Hct Plt Count Sodium Potassium Chloride Carbon Dioxide BUN Creatinine Glucose Calcium Magnesium 2.2 B-Natriuretic Peptide 163 H Consult Discharge Plan - Plan Referrals: Malika Arriaga MD [Primary Care Provider] -
[2018-12-24] MEDS: Heparin 25,000 UNIT/250 ML D5W 25,000 UNIT/250 ML IV.SOLN IVC SCH (10:56)
--- NOTE | 2018-12-24 11:00 | Nephrology Progress Note ---
Date of Encounter: 12/24/18 Time of Encounter: 10:30 - Assessment and Plan (1) ISAEL (acute kidney injury) Current Visit: Yes Status: Acute Roughly stable SCr. No indications for DIABETES TRAINER. Nonoliguric acute kidney injury of multifactorial etiology. The patient came in with orthopnea (he was unable to lay flat/supine for cardiology) and complaints of shortness of breath. He was placed on diuretics, but I suspect his dyspnea/shortness of breath was primarily respiratory in nature. Though he does have some edema, He is at risk for worsening the metabolic alkalosis secondary to his chronic pulmonary respiratory acidosis and the diuretics will induce a contraction alkalosis. The retroperitoneal ultrasound did not reveal any hydro. I recommend continuing to follow a renal protective strategy: strict I's and O's and daily weights on patients who are being treated with diuretics, as well as renal dosing and avoidance of concomitant nephrotoxic exposures if able. If he were to have a heart catheterization, it is likely acceptable so long as his renal function is followed within 72 hours afterwards. I recommend following best practices/evidence-based medicine and Mucomyst is not indicated before IV contrast exposure as it has been shown to be no better than placebo. Thank you (2) Metabolic alkalosis with respiratory acidosis Current Visit: Yes Status: Acute (3) Arterial insufficiency of lower extremity Current Visit: Yes Status: Acute (4) COPD exacerbation Current Visit: Yes Status: Acute (5) Hypertension Current Visit: Yes Status: Acute Qualifiers: Hypertension type: essential hypertension Qualified Code(s): I10 - Essential (primary) hypertension (6) Shortness of breath Current Visit: Yes Status: Acute Subjective Principal diagnosis: SOB Interval history: The patient reported feeling relatively less shortness of breath when he was seen and examined earlier today. His spouse and brother were present during my interview and exam. He did not affirm having nausea, vomiting, or diarrhea. Objective - Vital Signs Vital signs: Vital Signs Temp Pulse Resp BP Pulse Ox 12/24/18 08:23 18 93 12/24/18 06:26 97.7 F 92 141/66 94 12/24/18 05:41 98.0 F 89 16 133/65 93 12/24/18 04:06 20 91 12/24/18 00:10 97.9 F 78 16 137/58 95 12/23/18 23:31 16 91 12/23/18 20:20 20 92 12/23/18 19:12 97.7 F 78 16 126/56 94 12/23/18 15:35 18 94 12/23/18 15:00 98.4 F 96 14 118/60 96 12/23/18 11:04 98.5 F 87 15 111/57 96 Intake and Output 12/23/18 12/24/18 12/24/18 23:59 07:59 15:59 Intake Total 1050 / 1540 678 / 678 Output Total 0 / 900 1025 / 1025 Balance 1050 / 640 -347 / -347 Intake: IV Fluids 678 / 678 0.9 % Sodium Chloride 500 ML @ 500 / 500 75 mls/hr IVC .[id number] CHERIE Rx#: [id number] Heparin 25,000 UNIT/250 ML D5W 178 / 178 25,000 unit In 250 ml @ 12 UNIT /KG/HR 10.044 mls/hr IVC .Q24H [facility]ERIE Rx#:[id number] Oral 1050 / 1290 0 / 0 Output: Urine 0 / 900 1025 / 1025 Other: Weight 81.9 kg Patient Weight 12/24/18 23:59 Weight 81.9 kg - General Appearance General appearance: Present: well-developed, chronically ill, fatigue EENT: Present: ATNC, PERRL, mucous membranes moist Neck: Present: no JVD, supple Respiratory: Present: no kyphosis, wheezing Cardiology: Present: edema (trace pretibial pitting edema b/l), normal S1, normal S2 Gastrointestinal: Present: normoactive bowel sounds, no tenderness, no guarding Integumentary: Present: ecchymotic Neurologic: Present: no focal deficit, no asterixis, alert and oriented x3 Musculoskeletal: Present: no cyanosis, no clubbing Psychiatric: Present: mood/affect appropriate, cooperative - Lab 12/24/18 04:16 12/24/18 04:16 Most recent lab results 12/23/18 12/24/18 12/24/18 22:50 04:16 04:16 Calcium 9.2 Phosphorus 3.4 Magnesium 2.2 Urine Creatinine 77 Urine Total Protein 8 Consult Discharge Plan - Plan Referrals: Malika Arriaga MD [Primary Care Provider] -
[2018-12-24] MEDS ORDERED: Iopamidol 125 ML INFUS..BTL ONE ×2 (12:15→14:05)
[2018-12-24] MEDS ORDERED: 0.9 % Sodium Chloride 1,000 ML ONE (12:15)
[2018-12-24] MEDS ORDERED: *HR* Heparin 10,000 UNIT/10 ML VIAL ONE (12:15)
[2018-12-24] MEDS ORDERED: Nitroglycerin 1,000 MCG/10 ML VIAL IV ONE (12:15)
[2018-12-24] MEDS ORDERED: Heparin 1,000 UNITS/500 mL 500 ML ONE (12:15)
--- NOTE | 2018-12-24 13:06 | Pre-Sedation Evaluation ---
Pre-sedation evaluation - Pre-sedation checklist Date of procedure: 12/24/18 Procedure: Left Heart Catheterization Recent Vitals: Last Vital Signs Temp 97.7 F 12/24/18 06:26 Pulse 79 12/24/18 11:09 Resp 18 12/24/18 11:03 BP 130/62 12/24/18 11:09 Pulse Ox 100 12/24/18 11:09 H&P (including ROS) documented in medical record: Yes Previous reaction to sedatives/anesthetics: No Dietary Status: NPO after Midnight Airway Assessment: Patient can open mouth completely, TMJ function normal, Micrognathia (under-bite, receding chin) absent, Neck with adequate range of motion Dentition: No loose teeth or bridges Possible difficult airway: No ASA Classification *see protocol: CLASS II-Mild systemic disease Plan of Care: Pt appropriate candidate for procedure/moderate/conscious sedation, Risks/benefits of procedure/sedation discussed w/ patient/family Cardiac Registry (Cardio Only) - Functional Capacity Functional Capacity: < 4 METS - Clincal Frailty Scale Clinical Frailty Scale: Mildly Frail
[2018-12-24] MEDS ORDERED: Verapamil 5 MG/2 ML VIAL ONE (13:25)
[2018-12-24 13:42] LABS: ABG Base Excess 12 mEq/L (-2 to 3); ABG HCO3 42 mEq/L (21-27); ABG Oxygen Saturation 92 % (95-98); ABG PCO2 77 mmHg (35-45); ABG PH 7.34 pH Units (7.32-7.45); ABG PO2 72 mmHg (85-104); ABG TCO2 44 mEq/L (20-26)
[2018-12-24] MEDS ORDERED: *HR* FentaNYL (PF) 100 MCG/2 ML VIAL ONE (13:50)
[2018-12-24] MEDS ORDERED: *HR* Ticagrelor 90 MG TABLET ONE (14:20)
[2018-12-24] MEDS ORDERED: Nitroglycerin 0.4 MG TAB.SUBL SL PRN (14:32)
[2018-12-24] MEDS ORDERED: 0.9 % Sodium Chloride 1,000 ML IVC SCH (14:45)
--- NOTE | 2018-12-24 14:46 | Invasive Diagnostic Lab Proc ---
Name: David Gracia Date of Study: 12/24/2018 Date: 1945 Ht: 70.9in Medical Record#: [id number] Age: 73 Wt: 178.57lb Gender: Male BSA: 2.01 Order #: [id number] BMI: 25 Physicians Procedure Physician: Florence Saldana MD, [facility] Referring MD: Referring MD: Staff Name Position Time In Mary Melgoza RN Monitor 07:51 AM Florence Fairchild RT (R) Scrub 07:51 AM Teo Gracia RN Data Center Technician 07:51 AM Mary Melgoza RN Monitor 12:53 PM Matthew Bosch RN Data Center Technician 12:53 PM Mirza Martinez RT (R) Scrub 12:53 PM Procedures Performed Procedure L HRT ARTERY/VENTRICLE ANGIO IV Doppler BLD Flow 1st Vessel PRQ CARD MARGARETH STENT W/ANGIO 1 VSL Pre-Procedure Checklist Informed consent is complete signed and on chart. ID band is on and ID verified with patient. Patient NPO for procedure The procedure was described for the patient and questions were answered. Blood Pressure: 137/61 Plan of Care Patient will tolerate the procedure without complications. Adequate level of comfort will be maintained. Hemodynamics will remain stable Patient will recover from procedure without complications. Respiratory function will be maintained. Cardiac rhythm will remain stable. Patient temperature will be maintained. Patient and/or family have verbalized understanding of the procedure. Patient Education Chief Complaint/Reason for Test: Cardiac Cath Developmental Category: Geriatric (65+ years) Developmentally Appropriate for Age: Yes Learning Barriers: None Education Needs: Procedure Education Method: Verbal Information Taught: Cardiac Cath Educational Evaluation: Able to repeat information Intravenous Access Time IV Size Location DC'd Fluid/Drip Rate Units RN 07:48 AM 20g 1 1/4" Patent On Arrival Lt Hand 07:48 AM 22g 1" Patent On Arrival Rt Arm Allergies No Known Allergies Vital Signs Time BP (mmHg) HR (bpm) O2 Sat. RR (bpm) LOC 07:48 AM 137 / 61 78 92 % 18 5 = Fully awake and oriented or at pre-proc level 12:54 PM / % 5 = Fully awake and oriented or at pre-proc level 12:54 PM / % 4 = Oriented but drowsy 01:20 PM / % 4 = Oriented but drowsy 01:20 PM / % 4 = Oriented but drowsy 01:35 PM / % 4 = Oriented but drowsy 01:50 PM / % 4 = Oriented but drowsy 02:05 PM / % 4 = Oriented but drowsy 01:25 PM 140 / 69 79 93 % 15 01:30 PM 154 / 75 86 92 % 25 01:35 PM 152 / 74 89 91 % 20 01:40 PM 155 / 72 91 91 % 36 01:45 PM 157 / 76 91 91 % 25 01:50 PM 157 / 80 87 91 % 19 01:55 PM 161 / 79 87 92 % 12 02:00 PM 166 / 74 86 91 % 16 02:05 PM 168 / 74 90 92 % 17 02:10 PM 159 / 68 91 91 % 24 02:15 PM 119 / 69 91 91 % 22 01:00 PM 131 / 69 79 87 % 9 01:05 PM 135 / 63 80 90 % 15 01:10 PM 134 / 67 78 92 % 22 01:15 PM 138 / 65 77 92 % 23 01:20 PM 132 / 59 75 91 % 17 02:21 PM 166 / 81 96 90 % 13 Procedural Medications Time Medication Dose Units Method Given By 01:06 PM Oxygen 8 L/min Oxy Mask Matthew Bosch RN 01:13 PM Lidocaine 2% 20 ml Subcutaneous Florence Saldana MD, FACC 01:31 PM Lidocaine 2% 1 ml Subcutaneous Florence Saldana MD, FACC 01:50 PM Fentanyl 25 mcg Intravenous Matthew Bosch RN 01:52 PM Heparin 2500 units Intravenous Matthew Bosch RN 02:07 PM Nitroglycerin 200 mcg Intracoronary Florence Saldana MD, FACC 02:21 PM Brilinta 180 mg Orally, crushed Matthew Bosch RN ASA Classification: CLASS II- Mild systemic disease (i.e. well-controlled diabetes, hypertension, asthma, cigarette smoking) Leonidas Score Preprocedure Postprocedure Activity 2- Moves 4 extremities sustained head lift Activity 2- Moves 4 extremities sustained head lift Circulation 2- SBP +/= 20 points of pre-anesthetic level Circulation 2- SBP +/= 20 points of pre-anesthetic level Consciousness 1- Responds to verbal stimuli drowsy Consciousness 1- Responds to verbal stimuli drowsy O2 Saturation 1- Needs O2 inhalation to maintain O2 saturation of 90% O2 Saturation 1- Needs O2 inhalation to maintain O2 saturation of 90% Respiratory 2- Able to deep breathe and cough well Respiratory 2- Able to deep breathe and cough well Total Score 8 Total Score 8 Contrast Agent: Isovue Diagnostic Contrast: 227 ml Total Contrast: 227 ml Fluoro Dose: 79 mGy Activated Clotting Time Time Seconds to Clot 01:52 PM 186 02:08 PM 249 02:20 PM 206 Procedure Log Time Note Enter By 07:51 AM CathStat 12:53 PM Pt arrived to manufacturing laborer 2 at 12:53 [facility] 12:53 PM Mary Melgoza RN Position: Monitor Time in: 12:53 [facility] 12:53 PM Matthew Bosch RN Position: Data Center Technician Time in: 12:53 [facility] 12:53 PM Mirza Martinez (R) Position: Scrub Time in: 12:53 [facility] 12:53 PM Patient charges- Angio tray pack, Navilyst 3mm J, Pulse Oximetry and ACIST tubing and [facility] 12[facility] PM Physician arrived 12:54 [facility] 12:54 PM Meet and greet completed [facility] 12:54 PM Sign in performed according to hospital policy. Informed consent was obtained. tsmmers 12:54 PM Procedure start 12:54 [facility] 12[facility] PM pt arrives to aquatic life laborer very drowsy. Falls asleep during sign in. ABG ordered. [facility] 12[facility] PM Time: 12:54 Patient comfortable and pain free: Yes oumm 12:54 PM Time: 12:54LOC: 5 = Fully awake and oriented or at pre-proc level [facility] 12:59 PM Vitals capture started with the following parameters, Patient=Adult, Interval=5 min, Initial Qqresfvz=584 mmHg, Deflation Rate=3 mmHg, Cuff placed on Right Arm 12:59 PM Recorded ECG: HR=83 Condition=Condition 1 01:00 PM HR=79 bpm, OGYX=710/69 mmhg, SpO2=87.0 %, Resp=9 B/min 01:02 PM Hair removed from procedure site in procedure lab using clippers. Bilateral groin prepped with Chloraprep by Mirza Martinez (R), then patient was draped. Skin intact. [facility] 01:04 PM Pressure channel 1 zeroed. 01:05 PM Recorded ECG: HR=75 Condition=Condition 1 01:05 PM HR=80 bpm, UCFR=815/63 mmhg, SpO2=90.0 %, Resp=15 B/min 01:06 PM Time: 13:06 Oxygen on at 8 L/min per Oxy Mask by Matthew Bosch RN oummers 01:07 PM ASA Class CLASS II- Mild systemic disease (i.e. well-controlled diabetes, hypertension, asthma, cigarette smoking) tsoummers 01:10 PM Time: 12:54LOC: 4 = Oriented but drowsy tsoummers 01:10 PM Time: 12:54 Patient comfortable and pain free: Yes tsoummers 01:10 PM HR=78 bpm, RCBG=726/67 mmhg, SpO2=92.0 %, Resp=22 B/min 01:11 PM Time out was performed according to hospital policy. Conscious sedation and anesthesia was achieved (see medication log with in this report above) mm: PM Time: 13:13 20 ml Lidocaine 2% to right groin Subcutaneous Given by Florence Saldana MD, [facility] tsoummers 01:15 PM HR=77 bpm, PZOX=593/65 mmhg, SpO2=92.0 %, Resp=23 B/min 01:20 PM Time: 13:20 Patient comfortable and pain free: No tsoummers :20 PM Time: 13:20LOC: 4 = Oriented but drowsy tsoummers :20 PM HR=75 bpm, SGHV=443/59 mmhg, SpO2=91.0 %, Resp=17 B/min 01:23 PM Unsuccessful access attempt # 1 into the right Femoral artery. Manual pressure applied to achieve hemostasis.. oumm: PM prepping for radial access tsoummers 01:25 PM HR=79 bpm, SBHW=616/69 mmhg, SpO2=93.0 %, Resp=15 B/min 01:30 PM HR=86 bpm, MPXJ=364/75 mmhg, SpO2=92.0 %, Resp=25 B/min 01:30 PM Hair removed from procedure site in procedure lab using clippers. Lt radial prepped with Chloraprep by Matthew Bosch RN, then patient was draped. Skin intact. tsoummers : PM Time: 13:31 1 ml Lidocaine 2% to left radial Subcutaneous Given by Florence Saldana MD, [facility] tsoummers 01:32 PM Access obtained by percutaneous puncture. 5-6Fr 10cm Terumo Glidesheath sheath placed in left Radial artery. [id number] tsoummers 01:33 PM ABG drawn from left radial artery per Dr. Saldana. tsoummers 01:33 PM Respiratory running ABG test tsoummers 01:34 PM 0.035 260cm Navilyst 3mmJ wire [id number] oummers 01:34 PM 5Fr FR 4 catheter inserted over the wire [facility] tsoumm 01:34 PM Pressure channel 1 zeroed. 01:35 PM Time: 13:20LOC: 4 = Oriented but drowsy tsoummers 01:35 PM Time: 13:20 Patient comfortable and pain free: Yes tsoummers 01:35 PM HR=89 bpm, OTOK=652/74 mmhg, SpO2=91.0 %, Resp=20 B/min 01:36 PM wire removed tsoummers 01:37 PM RCA angiography performed in multiple views. tsoummers 01:37 PM Recorded Pressure: Ao, HR=91, Condition=Condition 1 (Aorta) Ao 111/64/87 01:38 PM Catheter removed tsoumm 01:38 PM 5Fr FL 4 catheter inserted over the wire DN oumm 01:39 PM LCA angiography performed in multiple views. oummers 01:39 PM Recorded Pressure: Ao, HR=89, Condition=Condition 1 (Aorta) Ao 112/57/81 01:40 PM HR=91 bpm, DGYX=961/72 mmhg, SpO2=91.0 %, Resp=36 B/min 01:41 PM Catheter removed tsoumm 01:41 PM 5Fr Pigtail catheter inserted over the wire [facility] tsoummers 01:41 PM Catheter crossed the aortic valve and was selectively placed in the left ventricle. Pressures recorded on pullback for left heart catheterization. mm 01:42 PM Pressure channel 1 zeroed. 01:42 PM Recorded Pressure: LV, HR=91, Condition=Condition 1 (Left Ventricle) LV 154/2/11 01:42 PM Catheter removed tsoummers 01:43 PM Coronary Dominance: right tsoummers 01:45 PM HR=91 bpm, DEJL=398/76 mmhg, SpO2=91.0 %, Resp=25 B/min 01:45 PM JR4 reinserted tsoummers 01:48 PM Lesion found in Proximal LAD. Pre Stenosis: 60 Pre KARIME Flow: 3: Complete and Brisk Flow/Perfusion tsoummers 01:49 PM ACT being drawn tsoummers 01:49 PM Catheter removed tsoummmirza 01:50 PM 6Fr XB LAD 3.5 [place] Bright-Tip guide catheter was used to cannulate the PCI vessel successfully. reused? No tsoummers 01:50 PM HR=87 bpm, IJYG=862/80 mmhg, SpO2=91.0 %, Resp=19 B/min 01:50 PM Time: 13:35LOC: 4 = Oriented but drowsy tsoummmirza 01:50 PM Time: 13:35 Patient comfortable and pain free: Yes [email or web address] 01:50 PM Time: 13:50 Fentanyl 25 mcg Intravenous Given by Matthew Bosch RN 01:51 PM Recorded Pressure: Ao, HR=89, Condition=Condition 1 (Aorta) Ao 149/45/82 01:52 PM .014 Prowater 180cm guide wire across target lesion- successful. reused? No tsoummers 01:52 PM At 13:52 the ACT was 186 seconds. [email or web address] 01:52 PM Time: 13:52 Heparin 2500 units Intravenous Given by Matthew Bosch RN 01:54 PM [ Start FFR sample: Equalized ] 01:55 PM HR=87 bpm, FQFN=112/79 mmhg, SpO2=92.0 %, Resp=12 B/min 01:58 PM Asist FFR Catheter advanced to target lesion. [email or web address] 01:58 PM Pressure channel 4 equalized to channel 1. 01:58 PM Pressure channel 4 equalized to channel 1. 01:58 PM Pressure channel 4 equalized to channel 1. 01:59 PM Pressure channel 4 equalized to channel 1. 01:59 PM iFR Measurement: 0.72 tsoummmirza 02:00 PM HR=86 bpm, HZKJ=352/74 mmhg, SpO2=91.0 %, Resp=16 B/min 02:01 PM no adenosine administered tsoummmirza 02:01 PM Flow Wire/Catheter removed intact tsaleena 02:01 PM 2.5 mm x 12 mm Emerge Monorail balloon across target lesion- successful. reused? No tsmm 02:03 PM Balloon inflated @ 8 amaya for 20 seconds tsoumm 02:03 PM Balloon inflated @ 8 amaya for 21 seconds tsoumm 02:04 PM Balloon catheter removed intact. tsoumm 02:05 PM 3.0mm x 12mm Synergy drug-eluting stent across target lesion- successful Lot #[id number] mmers 02:05 PM Time: 13:50 Patient comfortable and pain free: Yes mm 02:05 PM Time: 13:50LOC: 4 = Oriented but drowsy tsoumm 02:05 PM HR=90 bpm, OKWC=736/74 mmhg, SpO2=92.0 %, Resp=17 B/min 02:06 PM Stent deployed @ 12 amaya for 30 seconds tsmm 02:07 PM Stent delivery system removed intact. tsmm 02:08 PM Time: 14:07 Nitroglycerin 200 mcg Intracoronary Given by Florence Saldana MD, [facility] 02:08 PM At 14:08 the ACT was 249 seconds. tsmm 02:10 PM HR=91 bpm, LJBX=719/68 mmhg, SpO2=91.0 %, Resp=24 B/min 02:13 PM 3.0mm x 8mm Synergy drug-eluting stent across target lesion- successful Lot #[id number] 02:15 PM Stent deployed @ 12 amaya for 30 seconds tsmm 02:15 PM HR=91 bpm, EXEI=692/69 mmhg, SpO2=91.0 %, Resp=22 B/min 02:15 PM Stent balloon reinflated @ 14 amaya for 12 seconds [facility] 02:17 PM Stent delivery system removed intact. tsmm 02:17 PM Guide wire removed intact. tsoumm 02:17 PM Guide catheter removed intact. tsmm 02:17 PM Procedure completed at 14:17 12/24/2018 [facility] 02[facility] PM Did you address KARIME flow and Dominance? YesCoronary Dominance: right [facility] 02:18 PM Sign out completed: Radiation Dose 666.21 mGy, 79.2 Gy/cm2 Fluoro Time: 13 Isovue 370 - 200ml contrast 227 ml given by Florence Saldana MD, FACC. Complications: None. The patient was discharged out of the aquatic life laborer in stable condition. Sedation minutes 30. Cardiac Rehab Consult needed: Yes. Confirmed administered medications: Yes oummers 02:18 PM Isovue 370 - 200ml,3 Bottle(s) used. tsoummers 02:19 PM Arterial sheath pulled, Vasc Band closure device used and was Successful S/N. oummers 02:19 PM Estimated Blood Loss: minimal tsoummers 02:19 PM Post ECG NSR tsoummers 02:20 PM Post Blood Pressure 119/69 tsoummers 02:20 PM 14:20 Post Pulses Lt Radial 1+ tsoummers 02:20 PM Education needs Procedure, Plan of Care, and Responsibilities of Patient in Care tsoummers 02:20 PM Learning barriers :sedated tsoummers 02:20 PM Education Methods Verbal oummers 02:20 PM Education evaluation Needs further instruction tsoummers 02:20 PM Time: 14:05LOC: 4 = Oriented but drowsy tsoummers 02:20 PM Time: 14:05 Patient comfortable and pain free: Yes tsoummers 02:20 PM At 14:20 the ACT was 206 seconds. tsoummers 02:20 PM 13 ml air in Vasc Band. tsoummers 02:21 PM Site status No bleeding/ No Hematoma - Lt Wrist as reported by Mirza Martinez RT (R) at 14:20 tsoummers 02:21 PM Plavix, Effient or Brilinta given Yes oummers 02:21 PM HR=96 bpm, BFNN=477/81 mmhg, SpO2=90.0 %, Resp=13 B/min 02:21 PM Family placed in consult room. tsoumm 02:21 PM Time: 14:21 Brilinta 180 mg Orally, crushed Given by Matthew Bosch RN tsoummmirza 02:25 PM Vitals capture stopped. 02:26 PM Patient out of room: 14:26 tsoummers 02: PM add 2cc to vasc band total air 15cc tsoummers 02:27 PM Report given to Jose CAMACHO Pt taken to 2NE Room #26. 14:27 tsoummers 02:31 PM Lesion found in Proximal RCA. Pre Stenosis: 40 Pre KARIME Flow: tsoummers 02:32 PM Lesion found in Mid RCA. Pre Stenosis: 30 Pre KARIME Flow: tsoummers 02:32 PM Lesion found in Distal RCA. Pre Stenosis: 100 Pre KARIME Flow: tsoummers 02:32 PM Lesion found in Distal LMCA. Pre Stenosis: 25 Pre KARIME Flow: tsoummers 02:32 PM Lesion found in Mid LAD. Pre Stenosis: 30 Pre KARIME Flow: tsoummers 02:32 PM Lesion found in Distal LAD. Pre Stenosis: 30 Pre KARIME Flow: tsoummers 02:32 PM Lesion found in Proximal Circumflex. Pre Stenosis: 30 Pre KARIME Flow: tsoummers 02:32 PM Lesion found in Mid Circumflex. Pre Stenosis: 30 Pre KARIME Flow: tsoummers Complications Complication None Hemodynamics Pressures Site Systolic/A Wave Diastolic/V Wave Mean AO 111 64 87 AO 112 57 81 LV 154 2 11 AO 149 45 82 Post Procedure Information Blood Pressure: 119/69 mmHg Rhythm: NSR Post procedural instructions were given Closure Device Time Device Success/Fail 12/24/2018 2:21:00 PM Mechanical Compression Successful Site Checks Time Location Status Staff Sheath In? Note 02:20 PM Lt Wrist No bleeding/ No Hematoma Mirza Martinez RT (R) Pulses Time Site Pre-Procedure Post-Procedure Note 12/23/2018 7:48:00 AM Bilateral radial 2+ 2:20:00 PM Lt Radial 1+ Updated by Mary Melgoza RN on 12/24/2018 2:37:41 PM electronically signed on 12/24/2018 2:38:05 PM with status of Final
[2018-12-24] MEDS: levoFLOXacin 750 MG/150 ML 750 MG/150 ML BAG IVPB SCH (15:15)
[2018-12-25] MEDS: *HR* OxyCODONE Immed Rel 5 MG TABLET PO PRN ×3 (00:56→21:19)
[2018-12-25 01:35] LABS: Basophils # 0.1 K/mcL (0.0-0.2); Basophils % 0.2 %; Hemoglobin 12.7 g/dL (12.9-16.9); Immature Granulocytes % 1.3 % (0-4); Lymphocytes # 1.1 K/mcL (0.6-4.6); Lymphocytes % 4.7 %; Mean Corpuscular HGB Conc 31.8 g/dL (31.6-35.5); Mean Corpuscular Volume 94.6 fL (83.0-100.0); Monocytes # 1.6 K/mcL (0.0-1.3); Monocytes % 6.7 %; Neutrophils # 20.1 K/mcL (1.6-8.9); Platelet Count 594 K/mcL (140-400); Red Blood Count 4.23 M/mcL (4.19-5.50); Red Cell Distribution Width 13.9 % (11.5-14.5); Segmented Neutrophils % 87.1 %; White Blood Count 23.1 K/mcL (4.3-11.1)
[2018-12-25 02:02] LABS: BUN/Creatinine Ratio 32 (6-26); Blood Urea Nitrogen 37 mg/dL (8-23); Calcium 9.8 mg/dL (8.6-10.3); Carbon Dioxide 40 mEq/L (23-29); Chloride 92 mEq/L (98-107); Glucose 150 mg/dL (70-105); Osmolality,Calculated 296 (280-300); Potassium 4.7 mEq/L (3.5-5.1); Sodium 137 mEq/L (136-145); eGFR For African Americans > 60 (> 60); eGFR For Non-African Americans > 60 (> 60)
[2018-12-25] MEDS: Ipratropium/Albuterol Neb 3 ML IH SCH ×5 (04:16→20:13)
[2018-12-25] MEDS: *HR* HYDROcodone/Acet 5/325 mg TABLET PO PRN ×2 (04:23→17:26)
--- NOTE | 2018-12-25 08:49 | Internal Med Progress Note ---
<Mike Heath Romulo - Last Filed: 12/25/18 15:13> Hospitalist Progress Note - Encounter Date of Encounter: 12/25/18 Time of Encounter: 09:40 - Subjective Interval History: Patient seen and examined at bedside. Reported pain in legs has been improving. Unable to determine when his last bowel movement was. Denies fever, chills, cough, chest pain, SOB, Nausea, vomiting, diarrhea, or dysuria. - Exam Vitals: Temp Pulse Resp BP Pulse Ox 97.5 F L 80 16 159/74 96 12/25/18 07:16 12/25/18 07:16 12/25/18 07:22 12/25/18 07:16 12/25/18 07:22 Exam: Gen: AOx3 Eyes:CECI, EOMI with no conjunctivitis Throat: Moist mucous membranes with no oral ulcers or pharyngeal erythema CV: RRR with no murmur Resp: Decreased lung volumes. CTA in all marinelli with no wheeze or crackles GI:Soft, non-tender with no organomegally or masses palpated Neuro: CN II-XII intact with no focal deficits. Upper and lower extremity strength 4/5 Ext: DP weak in right lower ext. 1+ LE edema present satya. Derm: Signs of venous/arterial stasis in right 1st and 5th toes, as well as calcaneous. No trauma or ulcers present on foot. - Assessment and Plan (1) Sepsis Current Visit: Yes Status: Acute Assessment and Plan: -Patient met SIRS criteria upon admission 12/19 with possible source of infection as pneumonia - Chest X ray 12/20 Airspace changes in the medial aspect of the left lung base and small left effusion. This is concerning for an infiltrate. - Urine strep and Legionella negative 12/19 -Pro calcitonin 0.15 on 12/19 - Lactic acid 0.8 on 12/19 - WBC count today 23.1 likely secondary to steroid use Plan: -Continue Levaquin day 6 of 7 -BiPAP as needed (2) Pneumonia Current Visit: Yes Status: Acute Assessment and Plan: - Chest X ray 12/20 Airspace changes in the medial aspect of the left lung base and small left effusion. This is concerning for an infiltrate. Follow up to resolution is suggested - Clinically symptoms have been improving - WBC 23.1 today likely secondary to steroids Plan: - Cont Levoquin day 6 of 7 - Cont O2 NC as needed (3) COPD exacerbation Current Visit: Yes Status: Acute Assessment and Plan: -On admission increased SOB, non-productive cough, and increased O2 demand from baseline. Normally not on home O2 -Chronic 1PPD smoker Plan: -Continue O2 NC as needed. Wean as tolerated. - continue prednisone, completed 5 days of 40 mg. Plan to decrease to 20 mg daily for plan to taper. - Continue scheduled and PRN duonebs. -Use BIPAP as tolerated - Will need Home O2 evaluation and PT/OT evaluation prior discharge (4) Elevated troponin Current Visit: Yes Status: Acute Assessment and Plan: -[facility] troponins 0.3. Troponin at [facility] 12/19 was 0.64 and 12/20 is 0.53. -EKG at [facility] showed Sinus tachycardia with ST segment depressions at [facility] on 12/19 - Cardiology consulted - Heparin IV was stopped on 12/24 prior to cath - [facility] Cath from 12/24 with 2 stents placed without complication. Awaiting final report. Plan: - Cardiology recommendations: - increase Atorvastatin to 80mg daily -add metoprolol 25mg BID -ASA, Plavix, continue DAPT for minimum 1 year uninterrupted. (5) Congestive heart failure Current Visit: Yes Status: Chronic Assessment and Plan: -suspected congestive heart failure due +1 pitting edema to the midshin over past 2 days, shortness of breath on admission. -Patient does not have a history of congestive heart failure but does have history of hypertension - BNP 36 12/19 - Cardiology Consulted - Echo 12/19 LVEF 50-55% with mild L ventricular systolic dysfunction. Atypical septal motion consistent with a bundle branch block. Dilated RV with severe pulmonary HTN - BNP 163 12/24 down from 572 on 12/20 - Left heart cath with stent placement on 12/24 Plan: -hold lasixs and Losartan/HCTZ due to creatinine - Strict I/O and daily weights (6) ISAEL (acute kidney injury) Current Visit: Yes Status: Acute Assessment and Plan: - Nephrology consulted - Retroperitoneal ultrasound on 12/23 Unremarkable appearance the kidneys. Prostate gland enlargement. The urinary bladder is distended. - U/A on 12/23 within normal limits with no bacteria or WBC present - Renal Doppler 12/24 showed Bilateral renal arteries are hemodynamically well maintained, abdominal aorta is aneurysmal with a maximum diameter measured at 4.0 cm. - Creatinine 1.14 today down from 1.31 yesterday Plan: - cont hold Lasix and Losartan/HCTZ - Cont maintenance IVF -renal dosing of medications - Strict I/O - Cont to monitor Creatinine and urinary output for 72 hours after heart cath performed 12/24 (7) Hypertension Current Visit: Yes Status: Acute Assessment and Plan: -Chronic HTN losartan-HctZ and Cardizem - Creatinine 1.14 down from 1.58 on 12/23 Plan: - Losartan/HCTZ being held due to creatinine bump to 1.58 on 12/23 - Cont cardizem - Continue to monitor vital signs (8) Arterial insufficiency of lower extremity Current Visit: Yes Status: Acute Assessment and Plan: -intermittent discoloration and temperature difference for past 1 month in [place]. Previously on Gabapentin and oxycodone. -Reports he had evaluated with Doppler at [facility] 12/18 that was negative for DVT. - Has not been on anticoagulation outpatient - Cyanosis, and temperature changes in foot were noticed on 12/19 at 23:49. Doppler Negative for DVT or SVT -JOE preliminary results 0.19 in the R LE and 0.42 L LE as seen on 12/20 -Vascular consult 12/21 High risk surgical candidate Plan: -continue with daily ASA, Plavix and statin. - Cont Lyrica and Terrell (9) Moderate to severe pulmonary hypertension Current Visit: Yes Status: Acute Assessment and Plan: - On presentation shortness of breath with increased oxygen demand. - Not on O2 at home - Echo 12/19 LVEF 50-55% with mild L ventricular systolic dysfunction. Atypical septal motion consistent with a bundle branch block. Dilated RV with severe pulmonary HTN Plan -Continue O2 supplementation. Will need home O2 evaluation prior to discharge - Follow with pulmonary hypertension clinic upon discharge (10) Thrombocytosis Current Visit: Yes Status: Acute Assessment and Plan: -Platelets down to 600 today down from 699 on 12/23 . - Unknown Etiology - Patient heparin drip stopped 12/24 prior to heart cath Plan: - oncology follow-up after discharge for further workup DVT Prophylaxis: Lovenox sub cutaneous - Time Spent with Patient Total time spent is greater than 50% in coordination of care (as documented) at patient's floor/unit and/or counseling patient: Internal Medicine: Result - Labs CBC & Chem 7: 12/25/18 01:16 12/25/18 01:16 Labs: Short CBC 12/25/18 Range/Units 01:16 WBC 23.1 H (4.3-11.1) K/mcL Hgb 12.7 L (12.9-16.9) g/dL Hct 40.0 (37.5-50.1) % Plt Count 594 H (140-400) K/mcL Neutrophils # 20.1 H (1.6-8.9) K/mcL BMP 12/25/18 01:16 Sodium 137 Potassium 4.7 Chloride 92 L Carbon Dioxide 40 H* BUN 37 H Creatinine 1.14 Glucose 150 H Calcium 9.8 - ABG Interpretation ABG results: ABG ABG pH 7.34 pH Units (7.32-7.45) 12/24/18 13:36 ABG pCO2 77 mmHg (35-45) H* 12/24/18 13:36 ABG pO2 72 mmHg (85-104) L 12/24/18 13:36 ABG O2 Saturation 92 % (95-98) L 12/24/18 13:36 PT/INR, D-dimer PT 12.7 Seconds (9.4-12.1) H 12/21/18 04:18 Consult Discharge Plan - Plan Referrals: Malika Arriaga MD [Primary Care Provider] - <Joe Li - Last Filed: 12/25/18 18:24> Hospitalist Progress Note - Encounter Date of Encounter: 12/25/18 - Exam Vitals: Temp Pulse Resp BP Pulse Ox 97.6 F 74 17 138/59 98 12/25/18 15:29 12/25/18 15:29 12/25/18 15:29 12/25/18 15:29 12/25/18 15:29 - Assessment and Plan (1) COPD (chronic obstructive pulmonary disease) Current Visit: Yes Status: Chronic (2) Congestive heart failure Current Visit: Yes Status: Chronic (3) Sepsis Current Visit: Yes Status: Acute (4) Pneumonia Current Visit: Yes Status: Acute (5) COPD exacerbation Current Visit: Yes Status: Acute (6) Arterial insufficiency of lower extremity Current Visit: Yes Status: Acute (7) Elevated troponin Current Visit: Yes Status: Acute - Time Spent with Patient Total time spent is greater than 50% in coordination of care (as documented) at patient's floor/unit and/or counseling patient: Internal Medicine: Result - Labs CBC & Chem 7: 12/25/18 01:16 12/25/18 01:16 Labs: Short CBC 12/25/18 Range/Units 01:16 WBC 23.1 H (4.3-11.1) K/mcL Hgb 12.7 L (12.9-16.9) g/dL Hct 40.0 (37.5-50.1) % Plt Count 594 H (140-400) K/mcL Neutrophils # 20.1 H (1.6-8.9) K/mcL BMP 12/25/18 01:16 Sodium 137 Potassium 4.7 Chloride 92 L Carbon Dioxide 40 H* BUN 37 H Creatinine 1.14 Glucose 150 H Calcium 9.8 - ABG Interpretation ABG results: ABG ABG pH 7.34 pH Units (7.32-7.45) 12/24/18 13:36 ABG pCO2 77 mmHg (35-45) H* 12/24/18 13:36 ABG pO2 72 mmHg (85-104) L 12/24/18 13:36 ABG O2 Saturation 92 % (95-98) L 12/24/18 13:36 PT/INR, D-dimer PT 12.7 Seconds (9.4-12.1) H 12/21/18 04:18 - Attending Attestation I saw evaluated and examined this patient and reviewed objective data including labs and my medical decision-making was reviewed with the Resident Physician/Medical Student. I agree with the documented findings, disposition and treatment plan as described except to any changes set forth below. We independently had [id number] contact with the patient. <Mike Heath R - Last Filed: 12/25/18 15:13> (1) Sepsis Qualifiers: Sepsis type: sepsis due to unspecified organism Sepsis acute organ dysfunction status: unspecified Qualified Code(s): A41.9 - Sepsis, unspecified organism (2) Pneumonia Qualifiers: Pneumonia type: due to unspecified organism Laterality: left Lung location: unspecified part of lung Qualified Code(s): J18.9 - Pneumonia, unspecified organism (5) Congestive heart failure Qualifiers: Heart failure type: diastolic Heart failure chronicity: acute on chronic Qualified Code(s): I50.33 - Acute on chronic diastolic (congestive) heart failure (7) Hypertension Qualifiers: Hypertension type: essential hypertension Qualified Code(s): I10 - Essential (primary) hypertension <Jeo Li - Last Filed: 12/25/18 18:24> (1) COPD (chronic obstructive pulmonary disease) Qualifiers: COPD type: COPD with acute exacerbation Qualified Code(s): J44.1 - Chronic obstructive pulmonary disease with (acute) exacerbation (2) Congestive heart failure Qualifiers: Heart failure type: diastolic Heart failure chronicity: acute on chronic Qualified Code(s): I50.33 - Acute on chronic diastolic (congestive) heart virgie ingrid (3) Sepsis Qualifiers: Sepsis type: sepsis due to unspecified organism Sepsis acute organ dysfunction status: unspecified Qualified Code(s): A41.9 - Sepsis, unspecified organism (4) Pneumonia Qualifiers: Pneumonia type: due to unspecified organism Laterality: left Lung location: unspecified part of lung Qualified Code(s): J18.9 - Pneumonia, unspecified organism
[2018-12-25] MEDS: Diltiazem CD (24hr) 180 MG CAPSULE PO SCH (09:26)
[2018-12-25] MEDS: Aspirin 81 MG TAB.CHEW PO SCH (09:27)
[2018-12-25] MEDS: Pregabalin 25 MG CAPSULE PO SCH ×3 (09:27→21:13)
--- NOTE | 2018-12-25 10:39 | Cardiology Progress Note ---
Date of Encounter: 12/25/18 Time of Encounter: 10:37 Assessment and Plan (1) Shortness of breath Current Visit: Yes Status: Acute 1. Suspected current condition remains multifactoral; Sepsis/PN/COPD. 2. Echo 12/19/18 EF 50-55% showing severe pulmonary hypertension in the setting of Left lower lobe PN as evident on chest x-ray reported from [facility]. 2. Chest x-ray 12/20/18; cardiac silhouette stable; hyperinflation lung marinelli; airspace changes left lung base, small left effusion. 3, SOB much improved. Cumulative I/Os is -2420. Strict I/Os; daily weights. Nephrology following. (2) CAD (coronary artery disease) Current Visit: Yes Status: Acute 1. [facility] completed Dr. Maryan Saldana 12/24/18; Received MARGARETH x 2 Prox. 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 2. 12HR Telemetry ave HR 84 with unifocal PVCs; no sustained arrhythmias, significant pauses. 3. On Atorvastatin 40mg daily; will increase to 80mg daily; will add metoprolol 25mg BID; on ASA, Plavix, continue DAPT for minimum 1 year uninterrupted. 4. Pt. education given for post-procedure instructions and will schedule f/u 2 weeks s/p dicharge. 5. Discussed and reviewed with Dr. Lujan. Cardiology will sign off. Re- consult if needed. Qualifiers: Qualified Code(s): I25.10 - Atherosclerotic heart disease of hoh coronary artery without angina pectoris (3) Elevated troponin Current Visit: Yes Status: Acute 1.Troponins 0.50, 0.64, 0.53 likely demand ischemia in the setting of COPD exacerbation with sepsis/PN. 2. Continues to deny chest pain, improvement in SOB. (4) Hypertension Current Visit: Yes Status: Acute BP readings trending up; Ave SBP 150s. Remains off Losartan/HCTZ d/t elevated creatinine. On home dose cardizem 360mg PO daily; continue. Selected Entries 12/24/18 19:53 12/25/18 00:22 12/25/18 03:48 Blood Pressure 127/59 142/62 153/57 12/25/18 07:16 Blood Pressure 159/74 1. BP readings remain 150s/70s. 2. management per primary service. Qualifiers: Hypertension type: essential hypertension Qualified Code(s): I10 - Essential (primary) hypertension (5) ISAEL (acute kidney injury) Current Visit: Yes Status: Acute 1.Nephrology consulted for elevated creatinine highest 1.58 now 1.14. 2. Strict I/Os and daily weights. 3. Losartan/HCTZ on hold. Recommend restart when able. Discussion w patient/family: The assessment and plan as outlined above was discussed with the patient and/or family members who expressed understanding and agreement. All questions were ans wered. Thank you for involving us in the care of your patient. Please call with any questions. Subjective Principal diagnosis: SOB Interval history: 1. Continues to deny chest pain, SOB, palpitations, Diaphoresis. Objective Vital Signs, Last 4 Hours Temp Pulse Resp BP Pulse Ox 12/25/18 07:22 16 96 12/25/18 07:16 97.5 F L 80 17 159/74 92 General: Conversant, No Apparent Distress HEENT: Atraumatic, Normocephaly, Mucus Membranes Moist Neck: No JVD, Normal carotid pulses Cardiac: Reg Rate and Rhythm, Normal S1 and S2, No Murmur Lungs: Normal Breath Sounds, Other (exp. wheezes) Neuro: Alert and responsive, No focal deficits noted Abdomen: Soft, Non-Tender Skin: No rashes noted on visualized skin Musculoskeletal: No Chest Wall Tenderness Extremities: No Clubbing, No Cyanosis, Normal Pulses, Other (bilat lower ext. 1+ pitting edema. ) Results 12/25/18 01:16 12/25/18 01:16 Lab Results 12/25/18 12/25/18 01:16 01:16 WBC 23.1 H Hgb 12.7 L Hct 40.0 Plt Count 594 H Sodium 137 Potassium 4.7 Chloride 92 L Carbon Dioxide 40 H* BUN 37 H Creatinine 1.14 Glucose 150 H Calcium 9.8 Laboratory Tests 12/20/18 12/24/18 16:20 04:16 B-Natriuretic Peptide 572 H 163 H Laboratory Tests 12/19/18 12/19/18 12/20/18 15:39 20:51 03:43 Troponin I 0.50 H* 0.64 H* 0.53 H* ITS Impressions Echocardiogram 12/19/18 17:44 Impressions: LVEF 50-55%. Normal LV chamber size, wall thickness and overall function. Mild segmental left ventricular systolic dysfunction. Mild left ventricular diastolic dysfunction. Atypical septal motion consistent with bundle branch block. Mildly dilated RV with normal function. No significant valvular dysfunction. Severe pulmonary hypertension. Estimated RVSP is >80 mmHg. Left Ventricular Wall Motion: Rest Echo Findings The basal inferior wall was hypokinetic. All other wall segments showed normal motion. Chest X-Ray 12/20/18 11:22 IMPRESSION: Airspace changes in the medial aspect of the left lung base and small left effusion. This is concerning for an infiltrate. Follow up to resolution is suggested. D/ / 12/20/2018 15:10:28 Maritza Oakley MD / kelsey Interpreting Provider: Maritza Oakley MD Retroperitoneum Ultrasound 12/23/18 21:30 IMPRESSION: Unremarkable appearance the kidneys. Prostate gland enlargement. The urinary bladder is distended as above. D/ / Vera Rolle Cha, MD / Vera Rolle Cha, MD Interpreting Provider: Vera Rolle Cha, MD Active Medications Acetaminophen (Tylenol) 650 mg PO Q6HR PRN PRN Reason: Mild Pain/Fever Stop: 06/20/19 14:52 Last Admin: 12/20/18 21:11 Dose: 650 mg Documented by: Hydrocodone Bitart/Acetaminophen ([place] 5-325 Mg) 1 tab PO Q4H PRN PRN Reason: moderate to severe pain Stop: 06/22/19 16:46 Last Admin: 12/25/18 04:23 Dose: 1 tab Documented by: Albuterol/Ipratropium (Duoneb) 3 ml IH [id number] PRN PRN Reason: Shortness Of Breath/Wheezing Stop: 06/20/19 17:44 Albuterol/Ipratropium (Duoneb) 3 ml IH [id number] CHERIE Stop: 06/21/19 12:01 Last Admin: 12/25/18 07:22 Dose: 3 ml Documented by: Aspirin (Aspirin) 81 mg PO DAILY [facility] Stop: 06/21/19 09:01 Last Admin: 12/25/18 09:27 Dose: 81 mg Documented by: Atorvastatin Calcium (Lipitor) 40 mg PO HS [facility] Stop: 06/21/19 21:01 Last Admin: 12/24/18 21:28 Dose: 40 mg Documented by: Clopidogrel Bisulfate (Plavix) 75 mg PO DAILY [facility] Stop: 06/26/19 09:01 Last Admin: 12/25/18 09:27 Dose: 75 mg Documented by: Diltiazem HCl (Cardizem Cd) 360 mg PO DAILY [facility] Stop: 06/21/19 12:01 Last Admin: 12/25/18 09:26 Dose: 360 mg Documented by: Levofloxacin/Dextrose (Levaquin Premix 750mg/150 Ml) 750 mg in 150 mls @ 100 mls/hr IVPB Q24H [facility]; Protocol Stop: 06/20/19 16:01 Last Admin: 12/24/18 15:15 Dose: 100 mls/hr Documented by: Naloxone HCl (Narcan) 0.4 mg IVP Q2MPRN PRN PRN Reason: SEE COMMENTS Stop: 06/20/19 14:52 Nitroglycerin (Nitroglycerin) 0.4 mg SL Q5MPRN PRN PRN Reason: Chest Pain Stop: 06/25/19 14:33 Oxycodone HCl (Roxicodone) 10 mg PO Q6HR PRN; Protocol PRN Reason: Severe Pain Stop: 06/24/19 14:49 Last Admin: 12/25/18 09:27 Dose: 10 mg Documented by: Polyethylene Glycol (Miralax) 17 gm PO DAILY PRN PRN Reason: Constipation Stop: 06/24/19 22:52 Last Admin: 12/23/18 23:06 Dose: 17 gm Documented by: Pregabalin (Lyrica) 25 mg PO TID [facility] Stop: 06/24/19 22:01 Last Admin: 12/25/18 09:27 Dose: 25 mg Documented by: - Imaging and Cardiology Chest Xray: report reviewed Echo: report reviewed - EKG Interpretation EKG results cardiology: personally reviewed Consult Discharge Plan - Plan Referrals: Malika Arriaga MD [Primary Care Provider] -
--- NOTE | 2018-12-25 10:46 | Nephrology Progress Note ---
Date of Encounter: 12/25/18 Time of Encounter: 10:44 - Assessment and Plan (1) ISAEL (acute kidney injury) Current Visit: Yes Status: Acute Improved SCr. No urgent indications for ASSEMBLER GOLD FRAME. Often times a BMP needs to be checked approx 72hr s/p IV contrast exposure, which is when EDU could be seen. Doing well from a Nephro perspective for now. His underlying COPD (which causes a Respiratory Acidosis) would explain the metabolic alkalosis. The stabilizing renal function, I will politely sign off at this time. Please feel free to call or page nephrology if any further questions. Thank you (2) Metabolic alkalosis with respiratory acidosis Current Visit: Yes Status: Acute (3) Arterial insufficiency of lower extremity Current Visit: Yes Status: Acute (4) COPD exacerbation Current Visit: Yes Status: Acute (5) Hypertension Current Visit: Yes Status: Acute Qualifiers: Hypertension type: essential hypertension Qualified Code(s): I10 - Essential (primary) hypertension (6) Shortness of breath Current Visit: Yes Status: Acute Subjective Principal diagnosis: SOB Interval history: The patient was seen and examined earlier today. He again did not affirm having nausea, vomiting, or diarrhea. Objective - Vital Signs Vital signs: Vital Signs Temp Pulse Resp BP Pulse Ox 12/25/18 07:22 16 96 12/25/18 07:16 97.5 F L 80 17 159/74 92 12/25/18 04:18 16 96 12/25/18 03:48 97.8 F 87 16 153/57 94 12/25/18 00:22 97.8 F 80 16 142/62 93 12/24/18 20:01 12 96 12/24/18 19:53 97.8 F 73 14 127/59 94 12/24/18 17:46 91 18 135/64 95 12/24/18 17:24 94 18 123/55 95 12/24/18 17:00 94 18 136/71 95 12/24/18 16:45 99 18 127/98 89 12/24/18 16:23 95 18 130/63 94 12/24/18 16:04 91 18 172/110 12/24/18 15:56 18 91 12/24/18 15:45 93 20 165/91 92 12/24/18 15:30 82 18 128/56 12/24/18 15:15 83 18 149/64 12/24/18 15:00 84 20 151/70 88 12/24/18 14:46 97 20 180/71 88 12/24/18 11:09 79 130/62 100 12/24/18 11:03 18 94 Intake and Output 12/24/18 12/25/18 12/25/18 23:59 07:59 15:59 Intake Total 0 / 750 480 / 480 Output Total 525 / 1900 500 / 500 Balance -525 / -1150 -500 / -20 480 / -20 Intake: Oral 0 / 0 480 / 480 Output: Urine 525 / 1900 500 / 500 Other: Meal Dinner Breakfast Percent of Meal Consumed 100% 75% Weight 81.5 kg Patient Weight 12/25/18 23:59 Weight 81.5 kg - General Appearance Exam: General appearance: Present: well-developed, chronically ill, fatigue EENT: Present: ATNC, PERRL, mucous membranes moist Neck: Present: no JVD, supple Respiratory: Present: no kyphosis, wheezing Cardiology: Present: edema (trace pretibial pitting edema b/l), normal S1, normal S2 Gastrointestinal: Present: normoactive bowel sounds, no tenderness, no guarding Integumentary: Present: ecchymotic Neurologic: Present: no focal deficit, no asterixis, alert and oriented x3 Musculoskeletal: Present: no cyanosis, no clubbing Psychiatric: Present: mood/affect appropriate, cooperative - Lab 12/25/18 01:16 12/25/18 01:16 Most recent lab results 12/25/18 01:16 Calcium 9.8 Consult Discharge Plan - Plan Referrals: Malika Arriaga MD [Primary Care Provider] -
[2018-12-25] MEDS: *HR* Enoxaparin 40 MG/0.4 ML SYRINGE SQ SCH (13:15)
[2018-12-25] MEDS: Sennosides/Docusate Sodium TABLET PO SCH ×2 (13:15→21:13)
[2018-12-25] MEDS ORDERED: levoFLOXacin 750 MG TABLET PO ONE (14:00)
[2018-12-25] MEDS ORDERED: 0.9 % Sodium Chloride 1,000 ML IVC SCH ×2 (14:00→14:45)
[2018-12-25] MEDS: predniSONE 20 MG TABLET PO SCH (14:22)
--- NOTE | 2018-12-25 15:03 | Electrocardiograph Report ---
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
[2018-12-26] MEDS: Ipratropium/Albuterol Neb 3 ML IH SCH ×7 (00:25→23:30)
[2018-12-26 04:22] LABS: Basophils # 0.1 K/mcL (0.0-0.2); Basophils % 0.2 %; Hematocrit 38.9 % (37.5-50.1); Hemoglobin 12.2 g/dL (12.9-16.9); Immature Granulocytes % 1.3 % (0-4); Lymphocytes # 1.1 K/mcL (0.6-4.6); Lymphocytes % 5.2 %; Mean Corpuscular HGB Conc 31.4 g/dL (31.6-35.5); Mean Corpuscular Volume 95.8 fL (83.0-100.0); Mean Platelet Volume 9.2 fL (9.4-12.4); Monocytes # 1.2 K/mcL (0.0-1.3); Monocytes % 5.5 %; Neutrophils # 19.1 K/mcL (1.6-8.9); Platelet Count 534 K/mcL (140-400); Red Blood Count 4.06 M/mcL (4.19-5.50); Segmented Neutrophils % 87.8 %; White Blood Count 21.8 K/mcL (4.3-11.1)
[2018-12-26] MEDS: *HR* OxyCODONE Immed Rel 5 MG TABLET PO PRN (04:26)
[2018-12-26 04:41] LABS: BUN/Creatinine Ratio 32 (6-26); Blood Urea Nitrogen 31 mg/dL (8-23); Calcium 9.6 mg/dL (8.6-10.3); Carbon Dioxide 37 mEq/L (23-29); Chloride 97 mEq/L (98-107); Glucose 141 mg/dL (70-105); Osmolality,Calculated 289 (280-300); Potassium 4.8 mEq/L (3.5-5.1); Sodium 135 mEq/L (136-145); eGFR For African Americans > 60 (> 60); eGFR For Non-African Americans > 60 (> 60)
[2018-12-26] MEDS: *HR* Enoxaparin 40 MG/0.4 ML SYRINGE SQ SCH (05:52)
--- NOTE | 2018-12-26 06:37 | Vascular/Endovas Progress Note ---
Date of Encounter: 12/25/18 Time of Encounter: 12:30 - Assessment and plan (1) Atherosclerosis of [place] arteries of extremities with intermittent claudication, bilateral legs Current Visit: Yes Status: Chronic The patient has chronic severe peripheral vascular disease. He reports nocturnal rest pain in the right foot. He has no ulcerations or gangrene. He has no signs or symptoms of acute limb threatening ischemia. He has a right superficial femoral artery occlusion as well as tibial disease by duplex. He likely has inflow disease as well. The patient will need further imaging to evaluate his aortoiliac disease and for possible intervention. Will continue with pain medication and await resolution of his acute illness. (2) COPD (chronic obstructive pulmonary disease) Current Visit: Yes Status: Chronic Qualifiers: COPD type: COPD with acute exacerbation Qualified Code(s): J44.1 - Chronic obstructive pulmonary disease with (acute) exacerbation (3) Congestive heart failure Current Visit: Yes Status: Chronic The patient is currently being evaluated by Cardiology for congestive heart failure. Qualifiers: Heart failure type: diastolic Heart failure chronicity: acute on chronic Qualified Code(s): I50.33 - Acute on chronic diastolic (congestive) heart virgie lure (4) Pneumonia Current Visit: Yes Status: Acute The patient is currently being treated for pneumonia. Qualifiers: Pneumonia type: due to unspecified organism Laterality: left Lung location: unspecified part of lung Qualified Code(s): J18.9 - Pneumonia, unspecified organism (5) Hypertension Current Visit: Yes Status: Acute The patient was counseled regarding atherosclerotic risk factor reduction. Qualifiers: Hypertension type: essential hypertension Qualified Code(s): I10 - Essentia l (primary) hypertension - Subjective Interval history: The patient continues to report that his breathing is improving. He reports adequate pain relief when he receives his pain medication. He denies any fevers. He denies any chest pain. Vital Signs, Last 4 Hours Temp Pulse Resp BP Pulse Ox 12/26/18 04:21 98.1 F 69 17 153/52 91 12/26/18 04:09 16 91 - Physical Examination General: Present: Conversant, No Apparent Distress HEENT: Present: Pupils equal Neck: Absent: JVD Cardiac: Present: Reg Rate and Rhythm Lungs: Present: Other (breath sounds bilaterally) Neuro: Present: Alert and responsive, No focal deficits noted Vascular: Present: Normal capillary refill, Pulse, absent (Bilateral pedal pulses absent, pedal signals present) Abdomen: Present: Soft Skin: Present: No rashes noted on visualized skin Musculoskeletal: Present: No Chest Wall Tenderness Results 12/26/18 03:42 12/26/18 03:42 Lab Results, Last 24 hours 12/26/18 12/26/18 03:42 03:42 WBC 21.8 H Hgb 12.2 L Hct 38.9 Plt Count 534 H Sodium 135 L Potassium 4.8 Chloride 97 L Carbon Dioxide 37 H BUN 31 H Creatinine 0.96 Glucose 141 H Calcium 9.6 Consult Discharge Plan - Plan Referrals: Malika Arriaga MD [Primary Care Provider] -
--- NOTE | 2018-12-26 07:21 | Internal Med Progress Note ---
<Mike Heath - Last Filed: 12/26/18 14:26> Hospitalist Progress Note - Encounter Date of Encounter: 12/26/18 Time of Encounter: 08:45 - Subjective Interval History: Patient seen and examined at bedside. Reports that he is still having discomfort in his Right leg intermittently. Had a bowel movement yesterday after receiving an enema. Denies any Fever, chills, light headedness, dizziness, chest pain, tachycardia, SOB, cough, Nausea, vomiting, diarrhea, or dysuria. - Exam Vitals: Temp Pulse Resp BP Pulse Ox 98.1 F 69 17 153/52 91 12/26/18 04:12/26/18 04:21 12/26/18 04:21 12/26/18 04:12/26/18 04:21 Exam: Gen: AOx3 Eyes:CECI, EOMI with no conjunctivitis Throat: Moist mucous membranes with no oral ulcers or pharyngeal erythema CV: RRR with no murmur Resp: CTA in all marinelli with no wheeze or crackles GI:Soft, non-tender with no organomegally or masses palpated Neuro: CN II-XII intact with no focal deficits. Upper and lower extremity strength 4/5 Ext: Unable to palpate DP on the right. DP on the left weak but palpable. 1+ LE edema present satya. Derm: Signs of venous/arterial stasis on the plant surface of the foot back to the calcaneous, as well as in the 1st and 5th toes. No trauma, gangrene or ulcers present on foot. - Assessment and Plan (1) Sepsis Current Visit: Yes Status: Acute Assessment and Plan: -Patient met SIRS criteria upon admission 12/19 with possible source of infection as pneumonia - Chest X ray 12/20 Airspace changes in the medial aspect of the left lung base and small left effusion. This is concerning for an infiltrate. - Urine strep and Legionella negative 12/19 -Pro calcitonin 0.15 on 12/19 - Lactic acid 0.8 on 12/19 - WBC count today 21.8 likely secondary to steroid use Plan: -Stopped Levaquin received 7 days -BiPAP as needed (2) Pneumonia Current Visit: Yes Status: Acute Assessment and Plan: - Chest X ray 12/20 Airspace changes in the medial aspect of the left lung base and small left effusion. This is concerning for an infiltrate. Follow up to resolution is suggested - Clinically symptoms have been improving - WBC 21.8 today likely secondary to steroids Plan: -Levoquin stopped, received 7 days - Cont O2 NC as needed (3) COPD exacerbation Current Visit: Yes Status: Acute Assessment and Plan: -On admission increased SOB, non-productive cough, and increased O2 demand from baseline. Normally not on home O2 -Chronic 1PPD smoker Plan: -Continue O2 NC as needed. Wean as tolerated. - continue prednisone 20 mg day 1 daily for plan to taper. - Continue scheduled and PRN duonebs. -Use BIPAP as tolerated - Will need Home O2 evaluation and PT/OT evaluation prior discharge (4) Elevated troponin Current Visit: Yes Status: Acute Assessment and Plan: -[facility] troponins 0.3. Troponin at [facility] 12/19 was 0.64 and 12/20 is 0.53. -EKG at [facility] showed Sinus tachycardia with ST segment depressions at [facility] on 12/19 - Cardiology consulted - Heparin IV was stopped on 12/24 prior to cath - [facility] Cath from 12/24 with 2 stents placed without complication. Awaiting final report. Plan: - Cardiology recommendations: - increase Atorvastatin to 80mg daily -add metoprolol 25mg BID -ASA, Plavix, continue DAPT for minimum 1 year uninterrupted. (5) Congestive heart failure Current Visit: Yes Status: Chronic Assessment and Plan: -suspected congestive heart failure due +1 pitting edema to the midshin 2 days and, shortness of breath on admission. -Patient does not have a history of congestive heart failure but does have history of hypertension - BNP 36 12/19 - Cardiology Consulted - Echo 12/19 LVEF 50-55% with mild L ventricular systolic dysfunction. Atypical septal motion consistent with a bundle branch block. Dilated RV with severe pulmonary HTN - BNP 163 12/24 down from 572 on 12/20 - Left heart cath with stent placement on 12/24 Plan: -hold lasixs and Losartan/HCTZ due to creatinine - Strict I/O and daily weights (6) ISAEL (acute kidney injury) Current Visit: Yes Status: Acute Assessment and Plan: - Nephrology consulted - Retroperitoneal ultrasound on 12/23 Unremarkable appearance the kidneys. Prostate gland enlargement. The urinary bladder is distended. - U/A on 12/23 within normal limits with no bacteria or WBC present - Renal Doppler 12/24 showed Bilateral renal arteries are hemodynamically well maintained, abdominal aorta is aneurysmal with a maximum diameter measured at 4.0 cm. - Creatinine 0.96 today down from 1.14 yesterday plan: - cont hold Lasix and Losartan/HCTZ - Cont maintenance IVF -renal dosing of medications - Strict I/O - Cont to monitor Creatinine and urinary output for 72 hours after heart cath performed 12/24 (7) Hypertension Current Visit: Yes Status: Acute Assessment and Plan: -Chronic HTN losartan-HctZ and Cardizem - Creatinine 1.14 down from 1.58 on 12/23 Plan: - Losartan/HCTZ being held due to creatinine bump to 1.58 on 12/23 - Cont cardizem - Continue to monitor vital signs (8) Arterial insufficiency of lower extremity Current Visit: Yes Status: Acute Assessment and Plan: -intermittent discoloration and temperature difference for past 1 month in R Foot. Previously on Gabapentin and oxycodone. -Reports he had evaluated with Doppler at [facility] 12/18 that was negative for DVT. - Has not been on anticoagulation outpatient - Cyanosis, and temperature changes in foot were noticed on 12/19 at 23:49. Doppler Negative for DVT or SVT -JOE preliminary results 0.19 in the R LE and 0.42 L LE as seen on 12/20 -Vascular consult 12/21 High risk surgical candidate Plan: -continue with daily ASA, Plavix and statin. - Cont Lyrica and [place] -Vascular recommends furthr imaging to evaluate his aortoiliac disease and for possible intervention upon resolution of his acute illness (9) Moderate to severe pulmonary hypertension Current Visit: Yes Status: Acute Assessment and Plan: - On presentation shortness of breath with increased oxygen demand. - Not on O2 at home - Echo 12/19 LVEF 50-55% with mild L ventricular systolic dysfunction. Atypical septal motion consistent with a bundle branch block. Dilated RV with severe pulmonary HTN Plan -Continue O2 supplementation. - Will need home O2 evaluation prior to discharge - Follow with pulmonary hypertension clinic upon discharge (10) Thrombocytosis Current Visit: Yes Status: Acute Assessment and Plan: -Platelets down to 600 today down from 699 on 12/23 . - Unknown Etiology - Patient heparin drip stopped 12/24 prior to heart cath Plan: - oncology follow-up after discharge for further workup DVT Prophylaxis: Lovenox sub cutaneous - Time Spent with Patient Total time spent is greater than 50% in coordination of care (as documented) at patient's floor/unit and/or counseling patient: Plan of Care Discussed with: patient Internal Medicine: Result - Labs CBC & Chem 7: 12/26/18 03:42 12/26/18 03:42 Labs: Short CBC 12/26/18 Range/Units 03:42 WBC 21.8 H (4.3-11.1) K/mcL Hgb 12.2 L (12.9-16.9) g/dL Hct 38.9 (37.5-50.1) % Plt Count 534 H (140-400) K/mcL Neutrophils # 19.1 H (1.6-8.9) K/mcL BMP 12/26/18 03:42 Sodium 135 L Potassium 4.8 Chloride 97 L Carbon Dioxide 37 H BUN 31 H Creatinine 0.96 Glucose 141 H Calcium 9.6 - ABG Interpretation ABG results: ABG ABG pH 7.34 pH Units (7.32-7.45) 12/24/18 13:36 ABG pCO2 77 mmHg (35-45) H* 12/24/18 13:36 ABG pO2 72 mmHg (85-104) L 12/24/18 13:36 ABG O2 Saturation 92 % (95-98) L 12/24/18 13:36 PT/INR, D-dimer PT 12.7 Seconds (9.4-12.1) H 12/21/18 04:18 Consult Discharge Plan - Plan Referrals: Malika Arriaga MD [Primary Care Provider] - <Joe Li - Last Filed: 12/26/18 15:56> Hospitalist Progress Note - Encounter Date of Encounter: 12/26/18 - Exam Vitals: Temp Pulse Resp BP Pulse Ox 97.8 F 79 20 168/65 92 12/26/18 11:19 12/26/18 11:19 12/26/18 11:12/26/18 11:12/26/18 11:19 - Assessment and Plan (1) COPD (chronic obstructive pulmonary disease) Current Visit: Yes Status: Chronic (2) Congestive heart failure Current Visit: Yes Status: Chronic (3) Sepsis Current Visit: Yes Status: Acute (4) Pneumonia Current Visit: Yes Status: Acute (5) COPD exacerbation Current Visit: Yes Status: Acute (6) Arterial insufficiency of lower extremity Current Visit: Yes Status: Acute (7) Elevated troponin Current Visit: Yes Status: Acute - Time Spent with Patient Total time spent is greater than 50% in coordination of care (as documented) at patient's floor/unit and/or counseling patient: Internal Medicine: Result - Labs CBC & Chem 7: 12/26/18 03:42 12/26/18 03:42 Labs: Short CBC 12/26/18 Range/Units 03:42 WBC 21.8 H (4.3-11.1) K/mcL Hgb 12.2 L (12.9-16.9) g/dL Hct 38.9 (37.5-50.1) % Plt Count 534 H (140-400) K/mcL Neutrophils # 19.1 H (1.6-8.9) K/mcL BMP 12/26/18 03:42 Sodium 135 L Potassium 4.8 Chloride 97 L Carbon Dioxide 37 H BUN 31 H Creatinine 0.96 Glucose 141 H Calcium 9.6 - ABG Interpretation ABG results: ABG ABG pH 7.34 pH Units (7.32-7.45) 12/24/18 13:36 ABG pCO2 77 mmHg (35-45) H* 12/24/18 13:36 ABG pO2 72 mmHg (85-104) L 12/24/18 13:36 ABG O2 Saturation 92 % (95-98) L 12/24/18 13:36 PT/INR, D-dimer PT 12.7 Seconds (9.4-12.1) H 12/21/18 04:18 - Attending Attestation I saw evaluated and examined this patient and reviewed objective data including labs and my medical decision-making was reviewed with the Resident Physician/Medical Student. I agree with the documented findings, disposition and treatment plan as described except to any changes set forth below. We independently had [id number] contact with the patient. Patient had episode of intermittent claudication pain, getting oxycodone. Still on 6 L high flow O2. Denies fevers/chills, chest pain. VS: reviewed, Labs: reviewed. Patient appears to be in discomfort from right leg claudication pain. He is AAOx3, breath sounds are coarse, cardiac auscultation RRR. Patient finished Levaquin course. Continue Prednisone taper, may need bipap. Wean O2 as tolerated. Will need to look into Vascular intervention once medically more stable. <Mike Heath - Last Filed: 12/26/18 14:26> (1) Sepsis Qualifiers: Sepsis type: sepsis due to unspecified organism Sepsis acute organ dysfu nction status: unspecified Qualified Code(s): A41.9 - Sepsis, unspecified organism (2) Pneumonia Qualifiers: Pneumonia type: due to unspecified organism Laterality: left Lung location: unspecified part of lung Qualified Code(s): J18.9 - Pneumonia, unspecified organism (5) Congestive heart failure Qualifiers: Heart failure type: diastolic Heart failure chronicity: acute on chronic Qualified Code(s): I50.33 - Acute on chronic diastolic (congestive) heart failure (7) Hypertension Qualifiers: Hypertension type: essential hypertension Qualified Code(s): I10 - Essential (primary) hypertension <Joe Li - Last Filed: 12/26/18 15:56> (1) COPD (chronic obstructive pulmonary disease) Qualifiers: COPD type: COPD with acute exacerbation Qualified Code(s): J44.1 - Chronic obstructive pulmonary disease with (acute) exacerbation (2) Congestive heart failure Qualifiers: Heart failure type: diastolic Heart failure chronicity: acute on chronic Qualified Code(s): I50.33 - Acute on chronic diastolic (congestive) heart failure (3) Sepsis Qualifiers: Sepsis type: sepsis due to unspecified organism Sepsis acute organ dysfunction status: unspecified Qualified Code(s): A41.9 - Sepsis, unspecified organism (4) Pneumonia Qualifiers: Pneumonia type: due to unspecified organism Laterality: left Lung location: unspecified part of lung Qualified Code(s): J18.9 - Pneumonia, unspecified organism
[2018-12-26] MEDS: Pregabalin 25 MG CAPSULE PO SCH ×2 (09:40→14:28)
[2018-12-26] MEDS: predniSONE 20 MG TABLET PO SCH (09:40)
[2018-12-26] MEDS: Sennosides/Docusate Sodium TABLET PO SCH ×2 (09:41→20:45)
[2018-12-26] MEDS: Diltiazem CD (24hr) 180 MG CAPSULE PO SCH (09:41)
[2018-12-26] MEDS: Aspirin 81 MG TAB.CHEW PO SCH (09:41)
[2018-12-26] MEDS: *HR* HYDROcodone/Acet 5/325 mg TABLET PO PRN ×2 (14:34→22:00)
--- NOTE | 2018-12-26 17:28 | Vascular/Endovas Progress Note ---
Date of Encounter: 12/26/18 Time of Encounter: 17:15 - Assessment and plan (1) Atherosclerosis of [place] arteries of extremities with intermittent claudication, bilateral legs Current Visit: Yes Status: Chronic The patient has chronic severe peripheral vascular disease. He reports nocturnal rest pain in the right foot. He has no ulcerations or gangrene. He has no signs or symptoms of acute limb threatening ischemia. He has a right superficial femoral artery occlusion as well as tibial disease by duplex. He likely has inflow disease as well. He will be scheduled for an angiogram with possible intervention. The risks, benefits and alternatives were discussed and all questions were answered. (2) COPD (chronic obstructive pulmonary disease) Current Visit: Yes Status: Chronic Qualifiers: COPD type: COPD with acute exacerbation Qualified Code(s): J44.1 - Chronic obstructive pulmonary disease with (acute) exacerbation (3) Congestive heart failure Current Visit: Yes Status: Chronic The patient is currently being evaluated by Cardiology for congestive heart failure. Qualifiers: Heart failure type: diastolic Heart failure chronicity: acute on chronic Qualified Code(s): I50.33 - Acute on chronic diastolic (congestive) heart failure (4) Pneumonia Current Visit: Yes Status: Acute The patient is currently being treated for pneumonia. Qualifiers: Pneumonia type: due to unspecified organism Laterality: left Lung loca tion: unspecified part of lung Qualified Code(s): J18.9 - Pneumonia, unspecified organism (5) Hypertension Current Visit: Yes Status: Acute The patient was counseled regarding atherosclerotic risk factor reduction. Qualifiers: Hypertension type: essential hypertension Qualified Code(s): I10 - Essential (primary) hypertension - Subjective Interval history: The patient continues to report improvement. He denies any fevers. He denies any chest pain. Vital Signs, Last 4 Hours Temp Pulse Resp BP Pulse Ox 12/26/18 16:40 16 97 12/26/18 15:57 98.4 F 78 18 148/63 94 - Physical Examination General: Present: Conversant, No Apparent Distress Cardiac: Present: Reg Rate and Rhythm, Normal S1 and S2 Lungs: Present: Other (breath sounds bilaterally) Neuro: Present: Alert and responsive, No focal deficits noted Vascular: Present: Normal capillary refill, Pulse, absent (bilateral pedal pulses) Abdomen: Present: Soft, Non-tender Skin: Present: Other (no ulcerations or gangrene) Results 12/26/18 03:42 12/26/18 03:42 Lab Results, Last 24 hours 12/26/18 12/26/18 03:42 03:42 WBC 21.8 H Hgb 12.2 L Hct 38.9 Plt Count 534 H Sodium 135 L Potassium 4.8 Chloride 97 L Carbon Dioxide 37 H BUN 31 H Creatinine 0.96 Glucose 141 H Calcium 9.6 Consult Discharge Plan - Plan Referrals: Malika Arriaga MD [Primary Care Provider] -
[2018-12-26 19:34] LABS: Kappa Qnt Free Light Chains 1.08 mg/dL (0.33-1.94); Lambda Qnt Free Light Chains 1.76 mg/dL (0.57-2.63)
[2018-12-26 20:18] LABS: Urine Collection Volume RANDOM mL
[2018-12-26] MEDS: Pregabalin 50 MG CAPSULE PO SCH (20:45)
[2018-12-26] MEDS: Melatonin 3 MG TABLET PO PRN (20:49)
[2018-12-27 03:08] LABS: Basophils % 0.2 %; Eosinophils % 0.1 %; Immature Granulocytes % 1.4 % (0-4)
[2018-12-27 03:10] LABS: Basophils # 0.1 K/mcL (0.0-0.2); Hematocrit 37.8 % (37.5-50.1); Hemoglobin 12.1 g/dL (12.9-16.9); Lymphocytes # 1.7 K/mcL (0.6-4.6); Lymphocytes % 6.8 %; Mean Corpuscular Hemoglobin 30.5 pg (28.0-33.3); Mean Corpuscular Volume 95.2 fL (83.0-100.0); Mean Platelet Volume 9.1 fL (9.4-12.4); Monocytes # 1.4 K/mcL (0.0-1.3); Monocytes % 5.4 %; Neutrophils # 21.8 K/mcL (1.6-8.9); Platelet Count 494 K/mcL (140-400); Red Blood Count 3.97 M/mcL (4.19-5.50); Red Cell Distribution Width 13.9 % (11.5-14.5); Segmented Neutrophils % 86.1 %; White Blood Count 25.3 K/mcL (4.3-11.1)
[2018-12-27 03:30] LABS: BUN/Creatinine Ratio 34 (6-26); Blood Urea Nitrogen 30 mg/dL (8-23); Calcium 9.1 mg/dL (8.6-10.3); Carbon Dioxide 33 mEq/L (23-29); Chloride 97 mEq/L (98-107); Glucose 148 mg/dL (70-105); Osmolality,Calculated 291 (280-300); Potassium 4.7 mEq/L (3.5-5.1); Sodium 136 mEq/L (136-145); eGFR For African Americans > 60 (> 60); eGFR For Non-African Americans > 60 (> 60)
[2018-12-27] MEDS: Ipratropium/Albuterol Neb 3 ML IH SCH ×6 (03:47→23:39)
[2018-12-27] MEDS: *HR* Enoxaparin 40 MG/0.4 ML SYRINGE SQ SCH (06:08)
[2018-12-27] MEDS: *HR* HYDROcodone/Acet 5/325 mg TABLET PO PRN ×2 (06:09→11:43)
--- NOTE | 2018-12-27 08:04 | Internal Med Progress Note ---
Hospitalist Progress Note - Encounter Date of Encounter: 12/27/18 Time of Encounter: 16:10 - Subjective Interval History: Foot pain slightly improved. Denies fevers, chills. SOB somewhat better. - Exam Vitals: Temp Pulse Resp BP Pulse Ox 98.5 F 63 17 157/58 93 12/27/18 05:17 12/27/18 05:17 12/27/18 07:30 12/27/18 05:12/27/18 07:30 Exam: Gen: AOx3 Eyes:CECI, EOMI with no conjunctivitis Throat: Moist mucous membranes with no oral ulcers or pharyngeal erythema CV: RRR with no murmur Resp: CTA in all marinelli with no wheeze or crackles GI:Soft, non-tender with no organomegally or masses palpated Neuro: CN II-XII intact with no focal deficits. Upper and lower extremity strength 4/5 Ext: Unable to palpate DP on the right. DP on the left weak but palpable. 1+ LE edema present satya. Derm: Signs of venous/arterial stasis on the plant surface of the foot back to the calcaneous, as well as in the 1st and 5th toes. No trauma, gangrene or ulcers present on foot. - Assessment and Plan (1) Acute respiratory failure with hypoxemia Current Visit: Yes Status: Acute Assessment and Plan: Secondary to Pneumonia, COPD, CHF. Completed course of Levaquin Continue steroid taper Supplemental O2; wean to 4 L today Duo nebs scheduled and prn. (2) COPD (chronic obstructive pulmonary disease) Current Visit: Yes Status: Chronic Assessment and Plan: See above. (3) Congestive heart failure Current Visit: Yes Status: Chronic Assessment and Plan: See above (4) Sepsis Current Visit: Yes Status: Acute Assessment and Plan: Secondary to pneumonia Resolved completed course of Levaquin (5) Pneumonia Current Visit: Yes Status: Acute (6) COPD exacerbation Current Visit: Yes Status: Acute Assessment and Plan: see above. (7) Arterial insufficiency of lower extremity Current Visit: Yes Status: Acute Assessment and Plan: Vascular Surgery following, recommendations appreciated. (8) Elevated troponin Current Visit: Yes Status: Acute (9) ISAEL (acute kidney injury) Current Visit: Yes Status: Acute (10) Hypertension Current Visit: Yes Status: Acute (11) Moderate to severe pulmonary hypertension Current Visit: Yes Status: Acute - Time Spent with Patient Total time spent is greater than 50% in coordination of care (as documented) at patient's floor/unit and/or counseling patient: Internal Medicine: Result - Labs CBC & Chem 7: 12/27/18 02:37 12/27/18 02:37 Labs: Short CBC 12/27/18 Range/Units 02:37 WBC 25.3 H (4.3-11.1) K/mcL Hgb 12.1 L (12.9-16.9) g/dL Hct 37.8 (37.5-50.1) % Plt Count 494 H (140-400) K/mcL Neutrophils # 21.8 H (1.6-8.9) K/mcL BMP 12/27/18 02:37 Sodium 136 Potassium 4.7 Chloride 97 L Carbon Dioxide 33 H BUN 30 H Creatinine 0.87 Glucose 148 H Calcium 9.1 - ABG Interpretation ABG results: ABG ABG pH 7.34 pH Units (7.32-7.45) 12/24/18 13:36 ABG pCO2 77 mmHg (35-45) H* 12/24/18 13:36 ABG pO2 72 mmHg (85-104) L 12/24/18 13:36 ABG O2 Saturation 92 % (95-98) L 12/24/18 13:36 PT/INR, D-dimer PT 12.7 Seconds (9.4-12.1) H 12/21/18 04:18 Consult Discharge Plan - Plan Referrals: Malika Arriaga MD [Primary Care Provider] - (2) COPD (chronic obstructive pulmonary disease) Qualifiers: COPD type: COPD with acute exacerbation Qualified Code(s): J44.1 - Chronic obstructive pulmonary disease with (acute) exacerbation (3) Congestive heart failure Qualifiers: Heart failure type: diastolic Heart failure chronicity: acute on chronic Qualified Code(s): I50.33 - Acute on chronic diastolic (congestive) heart failure (4) Sepsis Qualifiers: Sepsis type: sepsis due to unspecified organism Sepsis acute organ dysfunction status: unspecified Qualified Code(s): A41.9 - Sepsis, unspecified organism (5) Pneumonia Qualifiers: Pneumonia type: due to unspecified organism Laterality: left Lung location: unspecified part of lung Qualified Code(s): J18.9 - Pneumonia, unspecified organism (10) Hypertension Qualifiers: Hypertension type: essential hypertension Qualified Code(s): I10 - Essential (primary) hypertension
[2018-12-27] MEDS: predniSONE 20 MG TABLET PO SCH (08:34)
[2018-12-27] MEDS: Sennosides/Docusate Sodium TABLET PO SCH ×2 (08:35→20:30)
[2018-12-27] MEDS: Diltiazem CD (24hr) 180 MG CAPSULE PO SCH (08:35)
[2018-12-27] MEDS: Pregabalin 50 MG CAPSULE PO SCH ×2 (08:37→17:57)
[2018-12-27] MEDS: Aspirin 81 MG TAB.CHEW PO SCH (08:37)
[2018-12-27] MEDS ORDERED: Isovue-250 100 ML INFUS..BTL ONE (14:40)
[2018-12-27] MEDS ORDERED: 0.9 % Sodium Chloride 1,000 ML ONE (14:40)
[2018-12-27] MEDS ORDERED: *HR* Heparin 10,000 UNIT/10 ML VIAL ONE (14:40)
[2018-12-27] MEDS ORDERED: *HR* Midazolam HCl 2 MG/2 ML VIAL ONE (15:00)
--- NOTE | 2018-12-27 15:02 | Pre-Sedation Evaluation ---
Pre-sedation evaluation - Pre-sedation checklist Date of procedure: 12/27/18 Procedure: ANGIOGRAM Recent Vitals: Last Vital Signs Temp 98.2 F 12/27/18 11:30 Pulse 62 12/27/18 11:30 Resp 18 12/27/18 11:30 BP 137/60 12/27/18 11:30 Pulse Ox 95 12/27/18 11:30 H&P (including ROS) documented in medical record: Yes Previous reaction to sedatives/anesthetics: No Dietary Status: NPO after Midnight Dentition: No loose teeth or bridges ASA Classification *see protocol: CLASS III-Severe systemic disease Plan of Care: Pt appropriate candidate for procedure/moderate/conscious sedation, Risks/benefits of procedure/sedation discussed w/ patient/family
--- NOTE | 2018-12-27 15:51 | Procedure Note ---
Date of procedure: 12/27/18 Pre-op diagnosis: Peripheral vascular disease with rest pain Post-op diagnosis: same Procedure: Aortogram, bilateral lower extremity angiogram wia left common femoral artery with 4 kinyarwanda sheath. Direct pressure held for hemostasis. Anesthesia: local, IV sedation (moderate conscious sedation) Surgeon: Silver Gupta Was there an assistant brand manager present: No Estimated blood loss (cc): 1 Specimen: None Pathology: none sent Condition: stable (no complications) Disposition: same day
--- NOTE | 2018-12-27 16:07 | Invasive Diagnostic Lab Proc ---
Name: David Gracia Date of Study: 12/27/2018 Date: 1945 Ht: 180.0 in Medical Record#: [id number] Age: 73 Wt: 80.6 lb Gender: Male BSA: 2 Order #: [id number] BMI: 24.88 Physicians Performing MD: Silver Gupta MD Referring MD: Referring MD: Staff Name Position Time In Milagros Kimble RT (R) Monitor Mirza Martinez RT (R) Scrub Ashwini Dobbins RN Shank Scourer Steven Schultz RN Monitor Florence Fairchild RT (R) Scrub Indications Peripheral Vasc Disease Procedures Performed AORTOGRAPHY, ABDOMINAL S&I AORTOGRAPHY W/RUNOFF BILAT S&I Pre-Procedure Checklist Informed consent is complete signed and on chart. H&P is on chart. ID band is on and ID verified with patient. Patient NPO for procedure The procedure was described for the patient and questions were answered. Blood Pressure: 150/71 ECG is on chart. Rhythm: NSR Plan of Care Patient will tolerate the procedure without complications. Adequate level of comfort will be maintained. Hemodynamics will remain stable Patient will recover from procedure without complications. Respiratory function will be maintained. Cardiac rhythm will remain stable. Patient temperature will be maintained. Patient and/or family have verbalized understanding of the procedure. Patient Education Chief Complaint/Reason for Test: Peripheral angiogram Developmental Category: Geriatric (65+ years) Learning Barriers: None Education Needs: Procedure Education Method: Verbal Information Taught: Peripheral angiogram Educational Evaluation: Able to repeat information Intravenous Access Time IV Size Location DC'd Fluid/Drip Rate Units RN 20g 1 1/4" Patent On Arrival Rt Antecubital 0.9NaCl 20g 1 1/4" Patent On Arrival Lt Hand Allergies No Known Allergies Vital Signs Time BP Systolic BP Diastolic HR O2 Sats ASA 02:55 PM 02:56 PM 03:01 PM 03:17 PM 03:32 PM 03:01 PM 152 72 70 91 03:06 PM 149 70 71 91 03:11 PM 148 77 76 90 03:16 PM 143 76 77 89 03:21 PM 155 64 75 89 03:26 PM 156 68 69 89 03:31 PM 146 73 74 91 03:36 PM 150 71 71 91 03:41 PM 149 67 72 90 03:46 PM 153 73 73 91 03:51 PM 137 68 71 91 Procedure Medications Time Medication Dose Units Method Route 03:06 PM Versed 1 mg Intravenous 03:06 PM Oxygen 4 L/min nasal cannula 03:17 PM Lidocaine 2% 10 ml Subcutaneous ASA Classification: CLASS III- Severe systemic disease (i.e. prior AMI, diabetes with vascular complications, morbid obesity) Leonidas Score Preprocedure Postprocedure Activity 2- Moves 4 extremities sustained head lift Activity 2- Moves 4 extremities sustained head lift Circulation 2- SBP +/= 20 points of pre-anesthetic level Circulation 2- SBP +/= 20 points of pre-anesthetic level Consciousness 2- Awake and alert oriented x 3 Consciousness 2- Awake and alert oriented x 3 O2 Saturation 2- Able to maintain O2 satruation of 92% on room air O2 Saturation 2- Able to maintain O2 satruation of 92% on room air Respiratory 2- Able to deep breathe and cough well Respiratory 2- Able to deep breathe and cough well Total Score 10 Total Score 10 Contrast: Isovue 300- 150ml Contrast Amount: 70 ml Fluoro Dose: 297 mGy Procedure Log Time Note Entered By 02:55 PM Pt arrived to [employer] [employer] [facility] 1 at 14:55 [facility] 02:55 PM Physician arrived 14:55 [facility] 02:55 PM Meet and greet completed [facility] 02:55 PM Sign in performed according to hospital policy. [facility] 02:56 PM Time: 14:55LOC: 5 = Fully awake and oriented or at pre-proc level [facility] 02:56 PM Time: 14:56 Is patient comfortable and pain free?: Yes [facility] 02:56 PM Mirza Martinez RT (R) Position: Scrub Time in: 14:56 elmo 02:56 PM Ashwini Dobbins RN Position: Shank Scourer Time in: 14:56 francy 02:59 PM Steven Schultz RN Position: Monitor Time in: 14:59 stephan 02:59 PM Florence Fairchild RT (R) Position: Scrub Time in: 14:59 stephan 03:00 PM Hair removed from procedure site in procedure lab using clippers. Bilateral groin prepped with Chloraprep by Mirza Martinez RT (R), then patient was draped. Skin intact. [email or web address] 03:00 PM Procedure start 15:00 jcallihan 03:01 PM Time: 14:56 Is patient comfortable and pain free?: Yes jcallihan 03:01 PM Time: 14:56LOC: 5 = Fully awake and oriented or at pre-proc [facility] PM Patient charges- Angio tray pack, Pulse Oximetry and ACIST tubing and transducer [facility] 03:06 PM 15:06 Versed 1 mg Intravenous Given by Ashwini Dobbins RN 03:06 PM 15:06 Oxygen at 4 L/min per nasal cannula by [facility]ins [facility] 03[facility]17 PM Time: 15:01LOC: 4 = Oriented but drowsy [facility] 03:17 PM Time: 15:01 Is patient comfortable and pain free?: Yes jcallan 03:17 PM Time out perfomed [facility] 03:17 PM 15:17 10 ml Lidocaine 2% to left groin Subcutaneous Given By [facility] PM Ultrasound, Sonosite, utilized to obtain vascular access [facility] 03:22 PM Access obtained in the left femoral artery by percutaneous puncture. 4 Fr. 10 cm Terumo [place] sheath placed in left femoral artery [facility] 03:22 PM 0.035 180cm Bentson wire utilized to assist with catheter placement [facility] 03:22 PM 4Fr Omniflush catheter inserted [facility] 03:23 PM Abdominal aorta angiography performed in AP contrast injected 20/10 mls. [facility] PM Abdominal angiogram with runoff completed: 8 ml/sec for a total of 40 mls [facility] 03:32 PM Time: 15:17 Is patient comfortable and pain free?: Yes jcallihan 03:32 PM Time: 15:17LOC: 4 = Oriented but drowsy [facility] 03:33 PM [facility]ter [facility] 03:34 PM Wire removed [facility] 03:35 PM Procedure completed at 15:35 [facility] 03[facility]36 PM Sign Out completed: Radiation Dose 296.70 mGy Fluoro Time: 2.8 minutes. Isovue 300- 150ml contrast 70 ml given by Silver Gupta MD. Complications: None. Confirmed administered medications:Yes Sedation minutes 30 jcallan 03:36 PM Isovue 300- 150ml,1 bottle(s) used. jcallihan 03:37 PM Estimated Blood Loss: less than 20cc jcallihan 03:37 PM Post Blood Pressure: 150/71 jcallihan 03:37 PM Post EKG: NSR jcallihan 03:37 PM 15:37 Post Pulses: Bilateral DP & PT Doppler. jcallihan 03:42 PM Information taught: Peripheral angiogram and V+Pad jcallihan 03:42 PM Education needs: Procedure, Plan of Care, and Responsibilities of Patient in Care jcallihan 03:42 PM Learning barriers: None jcallihan 03:42 PM Education methods: Verbal jcallihan 03:42 PM Education evaluation: Able to repeat information jcallihan 03:44 PM Family placed in consult [facility]. [facility] 03[facility]45 PM Complications: None jcallihan 03:45 PM Fluoro Time: 2.8 minutes [facility] 03[facility]45 PM Isovue 300- 150ml contrast 70 ml given by Silver Gupta MD [facility] 03:45 PM Radiation Dose 296.7 mGy [facility] 03[facility] PM Time: 15:32LOC: 4 = Oriented but drowsy jcallihan 03:53 PM Arterial sheath pulled using manual compression and V+Pad for 15 minutes by Milagros Kimble RT (R) [facility] 03:54 PM Site status No bleeding/hematoma - Lt Groin as reported by Mirza Martinez RT (R) at 15:54 jcallihan 03:55 PM Opsite applied jcallihan 03:55 PM Patient out of room 15:55 jcallihan 02:53 PM PVIStat 03:00 PM Vitals capture started with the following parameters, Patient=Adult, Interval=5 min, Initial Cjielrsh=053 mmHg, Deflation Rate=5 mmHg, Cuff placed on Left Arm 03:01 PM HR=70 bpm, VWYG=932/72 mmhg, SpO2=91.0 %, Resp=0 B/min, Comment=nsr 03:06 PM HR=71 bpm, JATX=673/70 mmhg, SpO2=91.0 %, Resp=21 B/min, Comment=nsr 03:11 PM HR=76 bpm, TOSK=403/77 mmhg, SpO2=90.0 %, Resp=16 B/min, Comment=nsr 03:16 PM HR=77 bpm, BMZI=468/76 mmhg, SpO2=89.0 %, Resp=16 B/min, Comment=nsr 03:21 PM HR=75 bpm, EEZO=462/64 mmhg, SpO2=89.0 %, Resp=19 B/min 03:26 PM HR=69 bpm, YSRK=715/68 mmhg, SpO2=89.0 %, Resp=11 B/min, Comment=nsr 03:31 PM HR=74 bpm, OZAW=073/73 mmhg, SpO2=91.0 %, Resp=15 B/min, Comment=nsr 03:36 PM HR=71 bpm, CKVO=817/71 mmhg, SpO2=91.0 %, Resp=10 B/min, Comment=nsr 03:41 PM HR=72 bpm, SBXK=618/67 mmhg, SpO2=90.0 %, Resp=13 B/min, Comment=nsr 03:46 PM HR=73 bpm, JTQL=142/73 mmhg, SpO2=91.0 %, Resp=10 B/min, Comment=nsr 03:51 PM HR=71 bpm, HSGT=017/68 mmhg, SpO2=91.0 %, Resp=13 B/min, Comment=nsr 03:56 PM Report given to Yanely CAMACHO. Pt taken to [facility], Room # 26 15:56 [facility] Post Procedure Information Blood Pressure: 150/71 mmHg Rhythm: NSR Post procedure instructions given Report Given To: Giulia Site Checks Time Location Status Staff Sheath In? Note 3:54:00 PM Lt Groin No bleeding/hematoma Mirza Martinez RT (R) Pulses Time Site Pre Procedure Post Procedure Note 3:37:00 PM Bilateral DP & PT Doppler Updated by Tyler Chinchilla RN on 12/27/2018 4:00:38 PM electronically signed on 12/27/2018 4:01:12 PM with status of Final
--- NOTE | 2018-12-27 20:20 | Event Note ---
Date of Encounter: 12/27/18 Time of Encounter: 17:00 The patient underwent a angiogram today. He is found have a right iliac, external iliac, common femoral, superficial femoral artery occlusion. This is not amenable to percutaneous revascularization. At this time the patient has no evidence of acute limb ischemia. Recommend continued oral pain medication for his intermittent rest pain. The patient will be reassessed next week for potential open revascularization which may include femoral to femoral artery bypass grafting.
[2018-12-28 01:23] LABS: Alpha 2 Globulin (PEP) 1.06 g/dL (0.48-1.05); Beta Globulin (PEP) 0.66 g/dL (0.48-1.10)
[2018-12-28] MEDS: Pregabalin 50 MG CAPSULE PO SCH ×4 (01:39→20:24)
[2018-12-28] MEDS: Ipratropium/Albuterol Neb 3 ML IH SCH ×6 (03:34→22:57)
[2018-12-28 05:02] LABS: BUN/Creatinine Ratio 31 (6-26); Blood Urea Nitrogen 28 mg/dL (8-23); Calcium 9.2 mg/dL (8.6-10.3); Carbon Dioxide 36 mEq/L (23-29); Chloride 95 mEq/L (98-107); Glucose 116 mg/dL (70-105); Osmolality,Calculated 290 (280-300); Potassium 4.6 mEq/L (3.5-5.1); Sodium 137 mEq/L (136-145); eGFR For African Americans > 60 (> 60); eGFR For Non-African Americans > 60 (> 60)
[2018-12-28 05:54] LABS: Basophils # 0.1 K/mcL (0.0-0.2); Basophils % 0.3 %; Eosinophils # 0.1 K/mcL (0.0-0.6); Eosinophils % 0.4 %; Hematocrit 39.2 % (37.5-50.1); Hemoglobin 12.2 g/dL (12.9-16.9); Immature Granulocytes % 1.1 % (0-4); Lymphocytes # 2.5 K/mcL (0.6-4.6); Lymphocytes % 12.3 %; Mean Corpuscular HGB Conc 31.1 g/dL (31.6-35.5); Mean Corpuscular Hemoglobin 29.8 pg (28.0-33.3); Mean Corpuscular Volume 95.8 fL (83.0-100.0); Mean Platelet Volume 9.4 fL (9.4-12.4); Monocytes # 1.4 K/mcL (0.0-1.3); Monocytes % 7.1 %; Neutrophils # 15.9 K/mcL (1.6-8.9); Platelet Count 507 K/mcL (140-400); Red Blood Count 4.09 M/mcL (4.19-5.50); Segmented Neutrophils % 78.8 %; White Blood Count 20.2 K/mcL (4.3-11.1)
[2018-12-28] MEDS: *HR* HYDROcodone/Acet 5/325 mg TABLET PO PRN ×2 (06:00→14:28)
[2018-12-28] MEDS: *HR* Enoxaparin 40 MG/0.4 ML SYRINGE SQ SCH (06:01)
[2018-12-28] MEDS: Diltiazem CD (24hr) 180 MG CAPSULE PO SCH (08:32)
[2018-12-28] MEDS: predniSONE 20 MG TABLET PO SCH (08:32)
[2018-12-28] MEDS: Sennosides/Docusate Sodium TABLET PO SCH ×2 (08:32→20:23)
[2018-12-28] MEDS: Aspirin 81 MG TAB.CHEW PO SCH (08:32)
[2018-12-28 10:34] LABS: IFE Reflexed IFE Done
[2018-12-28 10:35] LABS: Immunoglobulin A 103 mg/dL (68-408); Immunoglobulin G 611 mg/dL (768-1632); Immunoglobulin M 46 mg/dL (35-263)
--- NOTE | 2018-12-28 10:36 | Internal Med Progress Note ---
Hospitalist Progress Note - Encounter Date of Encounter: 12/28/18 Time of Encounter: 10:23 - Subjective Interval History: No acute events. Pain of right foot 8/10 after pain medication. Denies fevers/chills, n/v, SOB, chest pain. - Exam Vitals: Temp Pulse Resp BP Pulse Ox 97.9 F 90 18 168/68 94 12/28/18 06:21 12/28/18 06:21 12/28/18 07:29 12/28/18 06:21 12/28/18 07:29 Exam: Gen: AOx3 Eyes:CECI, EOMI with no conjunctivitis Throat: Moist mucous membranes with no oral ulcers or pharyngeal erythema CV: RRR with no murmur Resp: CTA in all marinelli with no wheeze or crackles GI:Soft, non-tender with no organomegally or masses palpated Neuro: CN II-XII intact with no focal deficits. Upper and lower extremity strength 4/5 Ext: Unable to palpate DP on the right. DP on the left weak but palpable. 1+ LE edema present satya. Derm: No trauma, cool to touch in both feet. - Assessment and Plan (1) Acute respiratory failure with hypoxemia Current Visit: Yes Status: Acute Assessment and Plan: Secondary to Pneumonia, COPD, CHF. Completed course of Levaquin Continue steroid taper, currently Prednisone 20 mg daily. Supplemental O2 on 4.5 L wean to 2.5 L today. Duo nebs scheduled and prn. (2) COPD (chronic obstructive pulmonary disease) Current Visit: Yes Status: Chronic Assessment and Plan: See above. (3) Congestive heart failure Current Visit: Yes Status: Chronic Assessment and Plan: See above (4) Sepsis Current Visit: Yes Status: Acute Assessment and Plan: Secondary to pneumonia Resolved completed course of Levaquin (5) Pneumonia Current Visit: Yes Status: Acute (6) COPD exacerbation Current Visit: Yes Status: Acute Assessment and Plan: see above. (7) Arterial insufficiency of lower extremity Current Visit: Yes Status: Acute Assessment and Plan: Vascular Surgery following, recommendations appreciated. (8) Elevated troponin Current Visit: Yes Status: Acute (9) ISAEL (acute kidney injury) Current Visit: Yes Status: Acute (10) Hypertension Current Visit: Yes Status: Acute (11) Moderate to severe pulmonary hypertension Current Visit: Yes Status: Acute - Time Spent with Patient Total time spent is greater than 50% in coordination of care (as documented) at patient's floor/unit and/or counseling patient: Internal Medicine: Result - Labs CBC & Chem 7: 12/28/18 03:56 12/28/18 03:56 Labs: Short CBC 12/28/18 Range/Units 03:56 WBC 20.2 H (4.3-11.1) K/mcL Hgb 12.2 L (12.9-16.9) g/dL Hct 39.2 (37.5-50.1) % Plt Count 507 H (140-400) K/mcL Neutrophils # 15.9 H (1.6-8.9) K/mcL BMP 12/28/18 03:56 Sodium 137 Potassium 4.6 Chloride 95 L Carbon Dioxide 36 H BUN 28 H Creatinine 0.90 Glucose 116 H Calcium 9.2 - ABG Interpretation ABG results: ABG ABG pH 7.34 pH Units (7.32-7.45) 12/24/18 13:36 ABG pCO2 77 mmHg (35-45) H* 12/24/18 13:36 ABG pO2 72 mmHg (85-104) L 12/24/18 13:36 ABG O2 Saturation 92 % (95-98) L 12/24/18 13:36 PT/INR, D-dimer PT 12.7 Seconds (9.4-12.1) H 12/21/18 04:18 Consult Discharge Plan - Plan Referrals: Malika Arriaga MD [Primary Care Provider] - (2) COPD (chronic obstructive pulmonary disease) Qualifiers: COPD type: COPD with acute exacerbation Qualified Code(s): J44.1 - Chronic obstructive pulmonary disease with (acute) exacerbation (3) Congestive heart failure Qualifiers: Heart failure type: diastolic Heart failure chronicity: acute on chronic Qualified Code(s): I50.33 - Acute on chronic diastolic (congestive) heart failure (4) Sepsis Qualifiers: Sepsis type: sepsis due to unspecified organism Sepsis acute organ dysfunction status: unspecified Qualified Code(s): A41.9 - Sepsis, unspecified organism (5) Pneumonia Qualifiers: Pneumonia type: due to unspecified organism Laterality: left Lung location: unspecified part of lung Qualified Code(s): J18.9 - Pneumonia, unspecified organism (10) Hypertension Qualifiers: Hypertension type: essential hypertension Qualified Code(s): I10 - Essential (primary) hypertension
[2018-12-29] MEDS: Ipratropium/Albuterol Neb 3 ML IH SCH ×6 (03:37→23:55)
[2018-12-29 04:31] LABS: Hematocrit 39.6 % (37.5-50.1); Hemoglobin 12.2 g/dL (12.9-16.9); Mean Corpuscular HGB Conc 30.8 g/dL (31.6-35.5); Mean Corpuscular Volume 97.3 fL (83.0-100.0); Mean Platelet Volume 9.1 fL (9.4-12.4); Platelet Count 480 K/mcL (140-400); Red Blood Count 4.07 M/mcL (4.19-5.50); Red Cell Distribution Width 13.9 % (11.5-14.5); Segmented Neutrophils % 79.5 %
[2018-12-29 04:32] LABS: Basophils % 0.2 %; Eosinophils % 0.2 %; Immature Granulocytes % 1.6 % (0-4); Lymphocytes # 2.6 K/mcL (0.6-4.6); Lymphocytes % 10.9 %; Monocytes # 1.8 K/mcL (0.0-1.3); Monocytes % 7.6 %; Neutrophils # 19.1 K/mcL (1.6-8.9)
[2018-12-29 04:50] LABS: BUN/Creatinine Ratio 28 (6-26); Blood Urea Nitrogen 26 mg/dL (8-23); Calcium 9.2 mg/dL (8.6-10.3); Carbon Dioxide 37 mEq/L (23-29); Chloride 96 mEq/L (98-107); Glucose 101 mg/dL (70-105); Osmolality,Calculated 295 (280-300); Potassium 4.1 mEq/L (3.5-5.1); Sodium 140 mEq/L (136-145); eGFR For African Americans > 60 (> 60); eGFR For Non-African Americans > 60 (> 60)
[2018-12-29] MEDS: *HR* Enoxaparin 40 MG/0.4 ML SYRINGE SQ SCH (05:42)
--- NOTE | 2018-12-29 07:39 | Internal Med Progress Note ---
Hospitalist Progress Note - Encounter Date of Encounter: 12/29/18 Time of Encounter: 11:04 - Subjective Interval History: No acute events. Patient states he has 6/10 foot pain. mentions that he is sleeping well without acute pain episodes. He denies SOB, chest pain, fevers/chills, n/v. - Exam Vitals: Temp Pulse Resp BP Pulse Ox 98.1 F 78 16 160/70 100 12/29/18 03:45 12/29/18 03:45 12/29/18 03:45 12/29/18 03:45 12/29/18 03:45 Exam: Gen: AOx3 Eyes:CECI, EOMI with no conjunctivitis Throat: Moist mucous membranes with no oral ulcers or pharyngeal erythema CV: RRR with no murmur Resp: CTA in all marinelli with no wheeze or crackles GI:Soft, non-tender with no organomegally or masses palpated Neuro: CN II-XII intact with no focal deficits. Upper and lower extremity strength 4/5 Ext: 1+ LE edema present satya, more edematous than yesterday. Derm: No trauma, cool to touch in both feet. - Assessment and Plan (1) Acute respiratory failure with hypoxemia Current Visit: Yes Status: Acute Assessment and Plan: Secondary to Pneumonia, COPD, CHF. Completed course of Levaquin Continue steroid taper, currently Prednisone 20 mg daily. Supplemental O2, wean to 2L today. Duo nebs scheduled and prn. Dispo: Wean oxygen as tolerated. Vascular recommendations, possibly surgical intervention. (2) COPD (chronic obstructive pulmonary disease) Current Visit: Yes Status: Chronic Assessment and Plan: See above. (3) Congestive heart failure Current Visit: Yes Status: Chronic Assessment and Plan: See above Is starting to have more edema today, will give dose of IV Lasix now and monitor urine output. (4) Sepsis Current Visit: Yes Status: Acute Assessment and Plan: Secondary to pneumonia Resolved completed course of Levaquin (5) Pneumonia Current Visit: Yes Status: Acute Assessment and Plan: Completed course of Levaquin, (6) COPD exacerbation Current Visit: Yes Status: Acute Assessment and Plan: see above. (7) Arterial insufficiency of lower extremity Current Visit: Yes Status: Acute Assessment and Plan: Vascular Surgery following, recommendations appreciated. Re evaluation pending. Continue asa/Plavix (8) Elevated troponin Current Visit: Yes Status: Acute Assessment and Plan: Likely demand ischemia (9) ISAEL (acute kidney injury) Current Visit: Yes Status: Acute Assessment and Plan: Resolved (10) Hypertension Current Visit: Yes Status: Acute Assessment and Plan: Cardizem, metoprolol, (11) Moderate to severe pulmonary hypertension Current Visit: Yes Status: Acute - Time Spent with Patient Total time spent is greater than 50% in coordination of care (as documented) at patient's floor/unit and/or counseling patient: Internal Medicine: Result - Labs CBC & Chem 7: 12/29/18 04:00 12/29/18 04:00 Labs: Short CBC 12/29/18 Range/Units 04:00 WBC 24.0 H (4.3-11.1) K/mcL Hgb 12.2 L (12.9-16.9) g/dL Hct 39.6 (37.5-50.1) % Plt Count 480 H (140-400) K/mcL Neutrophils # 19.1 H (1.6-8.9) K/mcL BMP 12/29/18 04:00 Sodium 140 Potassium 4.1 Chloride 96 L Carbon Dioxide 37 H BUN 26 H Creatinine 0.92 Glucose 101 Calcium 9.2 - ABG Interpretation ABG results: ABG ABG pH 7.34 pH Units (7.32-7.45) 12/24/18 13:36 ABG pCO2 77 mmHg (35-45) H* 12/24/18 13:36 ABG pO2 72 mmHg (85-104) L 12/24/18 13:36 ABG O2 Saturation 92 % (95-98) L 12/24/18 13:36 PT/INR, D-dimer PT 12.7 Seconds (9.4-12.1) H 12/21/18 04:18 Consult Discharge Plan - Plan Referrals: Malika Arriaga MD [Primary Care Provider] - (2) COPD (chronic obstructive pulmonary disease) Qualifiers: COPD type: COPD with acute exacerbation Qualified Code(s): J44.1 - Chronic obstructive pulmonary disease with (acute) exacerbation (3) Congestive heart failure Qualifiers: Heart failure type: diastolic Heart failure chronicity: acute on chronic Qualified Code(s): I50.33 - Acute on chronic diastolic (congestive) heart failure (4) Sepsis Qualifiers: Sepsis type: sepsis due to unspecified organism Sepsis acute organ dys function status: unspecified Qualified Code(s): A41.9 - Sepsis, unspecified organism (5) Pneumonia Qualifiers: Pneumonia type: due to unspecified organism Laterality: left Lung location: unspecified part of lung Qualified Code(s): J18.9 - Pneumonia, unspecified organism (10) Hypertension Qualifiers: Hypertension type: essential hypertension Qualified Code(s): I10 - Essential (primary) hypertension
[2018-12-29] MEDS: Sennosides/Docusate Sodium TABLET PO SCH ×2 (08:19→20:04)
[2018-12-29] MEDS: predniSONE 20 MG TABLET PO SCH (08:19)
[2018-12-29] MEDS: Pregabalin 50 MG CAPSULE PO SCH ×3 (08:19→20:04)
[2018-12-29] MEDS: Diltiazem CD (24hr) 180 MG CAPSULE PO SCH (08:19)
[2018-12-29] MEDS: Aspirin 81 MG TAB.CHEW PO SCH (08:19)
[2018-12-29] MEDS ORDERED: *HR* FentaNYL (PF) 100 MCG/2 ML VIAL IVP PRN (10:58)
[2018-12-30] MEDS: Ipratropium/Albuterol Neb 3 ML IH SCH ×5 (04:01→20:00)
[2018-12-30] MEDS: *HR* Enoxaparin 40 MG/0.4 ML SYRINGE SQ SCH (05:58)
[2018-12-30] MEDS: Pregabalin 50 MG CAPSULE PO SCH ×3 (08:46→19:51)
[2018-12-30] MEDS: Diltiazem CD (24hr) 180 MG CAPSULE PO SCH (08:46)
[2018-12-30] MEDS: Aspirin 81 MG TAB.CHEW PO SCH (08:46)
[2018-12-30] MEDS: Sennosides/Docusate Sodium TABLET PO SCH ×2 (08:47→19:52)
[2018-12-30] MEDS: predniSONE 10 MG TABLET PO SCH (08:47)
[2018-12-30] MEDS ORDERED: Furosemide 20 MG/2 ML VIAL IVP ONE (09:05)
[2018-12-30 11:18] LABS: Basophils # 0.1 K/mcL (0.0-0.2); Basophils % 0.2 %; Eosinophils # 0.1 K/mcL (0.0-0.6); Eosinophils % 0.4 %; Hematocrit 39.9 % (37.5-50.1); Hemoglobin 12.5 g/dL (12.9-16.9); Immature Granulocytes % 1.7 % (0-4); Lymphocytes % 8.5 %; Mean Corpuscular HGB Conc 31.3 g/dL (31.6-35.5); Mean Corpuscular Hemoglobin 30.3 pg (28.0-33.3); Mean Corpuscular Volume 96.6 fL (83.0-100.0); Mean Platelet Volume 9.2 fL (9.4-12.4); Monocytes # 1.7 K/mcL (0.0-1.3); Monocytes % 7.2 %; Neutrophils # 19.3 K/mcL (1.6-8.9); Platelet Count 477 K/mcL (140-400); Red Blood Count 4.13 M/mcL (4.19-5.50); White Blood Count 23.6 K/mcL (4.3-11.1)
[2018-12-30 11:35] LABS: BUN/Creatinine Ratio 27 (6-26); Blood Urea Nitrogen 24 mg/dL (8-23); Calcium 9.5 mg/dL (8.6-10.3); Carbon Dioxide 39 mEq/L (23-29); Chloride 94 mEq/L (98-107); Glucose 118 mg/dL (70-105); Osmolality,Calculated 293 (280-300); Sodium 139 mEq/L (136-145); eGFR For African Americans > 60 (> 60); eGFR For Non-African Americans > 60 (> 60)
--- NOTE | 2018-12-30 14:51 | Internal Med Progress Note ---
<Joe Li - Last Filed: 12/30/18 15:22> Hospitalist Progress Note - Encounter Date of Encounter: 12/30/18 - Exam Vitals: Temp Pulse Resp BP Pulse Ox 97.9 F 86 18 136/60 95 12/30/18 15:02 12/30/18 15:02 12/30/18 15:02 12/30/18 13:12 12/30/18 15:02 - Assessment and Plan (1) Acute respiratory failure with hypoxemia Current Visit: Yes Status: Acute (2) COPD (chronic obstructive pulmonary disease) Current Visit: Yes Status: Chronic (3) Congestive heart failure Current Visit: Yes Status: Chronic (4) Sepsis Current Visit: Yes Status: Acute (5) Pneumonia Current Visit: Yes Status: Acute (6) COPD exacerbation Current Visit: Yes Status: Acute (7) Arterial insufficiency of lower extremity Current Visit: Yes Status: Acute (8) Elevated troponin Current Visit: Yes Status: Acute (9) ISAEL (acute kidney injury) Current Visit: Yes Status: Acute (10) Hypertension Current Visit: Yes Status: Acute (11) Moderate to severe pulmonary hypertension Current Visit: Yes Status: Acute - Time Spent with Patient Total time spent is greater than 50% in coordination of care (as documented) at patient's floor/unit and/or counseling patient: Internal Medicine: Result - Labs CBC & Chem 7: 12/30/18 10:42 12/30/18 10:42 Labs: Short CBC 12/30/18 Range/Units 10:42 WBC 23.6 H (4.3-11.1) K/mcL Hgb 12.5 L (12.9-16.9) g/dL Hct 39.9 (37.5-50.1) % Plt Count 477 H (140-400) K/mcL Neutrophils # 19.3 H (1.6-8.9) K/mcL BMP 12/30/18 10:42 Sodium 139 Potassium 4.0 Chloride 94 L Carbon Dioxide 39 H BUN 24 H Creatinine 0.89 Glucose 118 H Calcium 9.5 - ABG Interpretation ABG results: ABG ABG pH 7.34 pH Units (7.32-7.45) 12/24/18 13:36 ABG pCO2 77 mmHg (35-45) H* 12/24/18 13:36 ABG pO2 72 mmHg (85-104) L 12/24/18 13:36 ABG O2 Saturation 92 % (95-98) L 12/24/18 13:36 PT/INR, D-dimer PT 12.7 Seconds (9.4-12.1) H 12/21/18 04:18 Consult Discharge Plan - Plan Referrals: Malika Arriaga MD [Primary Care Provider] - - Attending Attestation I saw evaluated and examined this patient and reviewed objective data including labs and my medical decision-making was reviewed with the Resident Physician/Medical Student. I agree with the documented findings, disposition and treatment plan as described except to any changes set forth below. We independently had [id number] contact with the patient. No acute events. Pain better today. Breathing stable. VS: reviewed. Gen: NAD, Lungs: CTAB, decreased breath sounds. Ext: pedal edema still present today Labs: reviewed WBC still elevated. Continue Steroids, Duo Nebs, Lasix. <Mike Heath - Last Filed: 12/30/18 16:09> Hospitalist Progress Note - Encounter Date of Encounter: 12/30/18 Time of Encounter: 09:50 - Subjective Interval History: Patient reports no acute events overnight. Reports some discomfort in lower extremities and improving SOB. Denies any chest pain, Light headedness, nausea, vomiting, diarrhea, constipation, or dysuria - Exam Vitals: Temp Pulse Resp BP Pulse Ox 98.7 F 84 17 136/60 94 12/30/18 13:12 12/30/18 12:06 12/30/18 12:06 12/30/18 13:12 12/30/18 12:06 Exam: Gen: AOx3 Eyes:CECI, EOMI with no conjunctivitis Throat: Moist mucous membranes with no oral ulcers or pharyngeal erythema CV: RRR with no murmur Resp: CTA in all marinelli with no wheeze or crackles GI:Soft, non-tender with no organomegally or masses palpated Neuro: CN II-XII intact with no focal deficits Ext: Weak pulse in Right DP. DP on the left weak but palpable. 1+ LE edema present satya. Derm: Signs of venous/arterial stasis on the plant surface of the foot back to the calcaneous, as well as in the 1st and 5th toes. No trauma, gangrene or ulcers present on foot. - Assessment and Plan (1) Congestive heart failure Current Visit: Yes Status: Chronic Assessment and Plan: -suspected congestive heart failure due +1 pitting edema to the midshin 2 days and, shortness of breath on admission. -Patient does not have a history of congestive heart failure but does have history of hypertension - BNP 36 12/19 - Cardiology Consulted - Echo 12/19 LVEF 50-55% with mild L ventricular systolic dysfunction. Atypical s eptal motion consistent with a bundle branch block. Dilated RV with severe pulmonary HTN - BNP 163 12/24 down from 572 on 12/20 - Left heart cath with stent placement on 12/24 Plan: -Gave dose 20 mg IV Lasix - Hold Losartan/HCTZ due to creatinine - Strict I/O and daily weights (2) Arterial insufficiency of lower extremity Current Visit: Yes Status: Acute Assessment and Plan: -intermittent discoloration and temperature difference for past 1 month in R Foot. Previously on Gabapentin and oxycodone. -Reports he had evaluated with Doppler at [facility] 12/18 that was negative for DVT. - Has not been on anticoagulation outpatient - Cyanosis, and temperature changes in foot were noticed on 12/19 at 23:49. Doppler Negative for DVT or SVT -JOE study showed 0.19 in the R LE and 0.42 L LE as seen on 12/20 -Vascular consult 12/21 High risk surgical candidate - Arteriography LE on 12/27 showed obstruction of multiple vessels in R lower extremity and L LE Plan: -Due to advanced disease patient will requires outpatient planning and further discussion with vascular surgery - continue with daily ASA, Plavix and statin. - Cont Lyrica and [place] (3) COPD exacerbation Current Visit: Yes Status: Acute Assessment and Plan: -On admission increased SOB, non-productive cough, and increased O2 demand from baseline. Normally not on home O2 -Chronic 1PPD smoker Plan: -Continue O2 NC as needed. Wean as tolerated. - continue prednisone 10 mg day 1 of 4. - Continue scheduled and PRN duonebs. -Use BIPAP as tolerated - Will need Home O2 evaluation and PT/OT evaluation prior discharge (4) Elevated troponin Current Visit: Yes Status: Acute Assessment and Plan: -[facility] ED troponins 0.3. Troponin at [facility] 12/19 was 0.64 and 12/20 is 0.53. -EKG at [facility] showed Sinus tachycardia with ST segment depressions at [facility] on 12/19 - Cardiology consulted recommended Atorvastatin to 80mg daily, metoprolol 25mg BID, ASA plavix DAPT for minimum 1 year uninterrupted - Heparin IV was stopped on 12/24 prior to cath - [facility] Cath from 12/24 with 2 stents placed without complication. Plan: - Cont Atorvastatin to 80mg daily -Cont metoprolol 25mg BID - Cont ASA and Plavix (5) ISAEL (acute kidney injury) Current Visit: Yes Status: Acute Assessment and Plan: - Nephrology consulted - Retroperitoneal ultrasound on 12/23 Unremarkable appearance the kidneys. Prostate gland enlargement. The urinary bladder is distended. - U/A on 12/23 within normal limits with no bacteria or WBC present - Renal Doppler 12/24 showed Bilateral renal arteries are hemodynamically well maintained, abdominal aorta is aneurysmal with a maximum diameter measured at 4.0 cm. -Nephrology recommended monitoring Creatinine and urinary output for 72 hours after heart cath performed 12/24 - Creatinine 0.89 today down from 0.92 yesterday plan: - Lasix 20 mg IV given today. May need to stop if there is an elevation in creatinine -renal dosing of medications - Strict I/O (6) Hypertension Current Visit: Yes Status: Acute Assessment and Plan: -Chronic HTN losartan-HctZ and Cardizem -Losartan/HCTZ being held due to creatinine bump to 1.58 on 12/23 Plan: - IV 20 mg Lasix given today. May need to stop if creatinine rises - Cont cardizem - Continue to monitor vital signs (7) Moderate to severe pulmonary hypertension Current Visit: Yes Status: Acute Assessment and Plan: - On presentation shortness of breath with increased oxygen demand. - Not on O2 at home - Echo 12/19 LVEF 50-55% with mild L ventricular systolic dysfunction. Atypical septal motion consistent with a bundle branch block. Dilated RV with severe pulmonary HTN Plan -Continue O2 supplementation, wean as tolerated. - Will need home O2 evaluation prior to discharge - Follow with pulmonary hypertension clinic upon discharge (8) Thrombocytosis Current Visit: Yes Status: Acute Assessment and Plan: -Platelets down to 477 today down from 699 on 12/23 . - Unknown Etiology - Patient heparin drip stopped 12/24 prior to heart cath Plan: - follow up with PCP upon discharge (9) Sepsis Current Visit: Yes Status: Resolved Assessment and Plan: -Patient met SIRS criteria upon admission 12/19 with possible source of infection as pneumonia - Chest X ray 12/20 Airspace changes in the medial aspect of the left lung base and small left effusion.This is concerning for an infiltrate. - Urine strep and Legionella negative 12/19 -Pro calcitonin 0.15 on 12/19 - Lactic acid 0.8 on 12/19 - WBC count today 23.6 likely secondary to steroid use Plan: -Completed Levaquin 7 days course -BiPAP as needed (10) Pneumonia Current Visit: Yes Status: Resolved Assessment and Plan: Chest X ray 12/20 Airspace changes in the medial aspect of the left lung base and small left effusion. This is concerning for an infiltrate. Follow up to resolution is suggested - Clinically symptoms have been improving - WBC 23.6 today likely secondary to steroids Plan: -Completed Levaquin 7 day course - Cont O2 NC as needed, wean as tolerated DVT Prophylaxis: Lovenox sub cutaneous - Time Spent with Patient Total time spent is greater than 50% in coordination of care (as documented) at patient's floor/unit and/or counseling patient: Plan of Care Discussed with: patient Internal Medicine: Result - Labs CBC & Chem 7: 12/30/18 10:42 12/30/18 10:42 Labs: Short CBC 12/30/18 Range/Units 10:42 WBC 23.6 H (4.3-11.1) K/mcL Hgb 12.5 L (12.9-16.9) g/dL Hct 39.9 (37.5-50.1) % Plt Count 477 H (140-400) K/mcL Neutrophils # 19.3 H (1.6-8.9) K/mcL BMP 12/30/18 10:42 Sodium 139 Potassium 4.0 Chloride 94 L Carbon Dioxide 39 H BUN 24 H Creatinine 0.89 Glucose 118 H Calcium 9.5 - ABG Interpretation ABG results: ABG ABG pH 7.34 pH Units (7.32-7.45) 12/24/18 13:36 ABG pCO2 77 mmHg (35-45) H* 12/24/18 13:36 ABG pO2 72 mmHg (85-104) L 12/24/18 13:36 ABG O2 Saturation 92 % (95-98) L 12/24/18 13:36 PT/INR, D-dimer PT 12.7 Seconds (9.4-12.1) H 12/21/18 04:18 <Joe Li - Last Filed: 12/30/18 15:22> (2) COPD (chronic obstructive pulmonary disease) Qualifiers: COPD type: COPD with acute exacerbation Qualified Code(s): J44.1 - Chronic obstructive pulmonary disease with (acute) exacerbation (3) Congestive heart failure Qualifiers: Heart failure type: diastolic Heart failure chronicity: acute on chronic Qu alified Code(s): I50.33 - Acute on chronic diastolic (congestive) heart failure (4) Sepsis Qualifiers: Sepsis type: sepsis due to unspecified organism Sepsis acute organ dysfunction status: unspecified Qualified Code(s): A41.9 - Sepsis, unspecified organism (5) Pneumonia Qualifiers: Pneumonia type: due to unspecified organism Laterality: left Lung location: unspecified part of lung Qualified Code(s): J18.9 - Pneumonia, unspecified organism (10) Hypertension Qualifiers: Hypertension type: essential hypertension Qualified Code(s): I10 - Essential (primary) hypertension <Mike Heath - Last Filed: 12/30/18 16:09> (1) Congestive heart failure Qualifiers: Heart failure type: diastolic Heart failure chronicity: acute on chronic Qualified Code(s): I50.33 - Acute on chronic diastolic (congestive) heart failure (6) Hypertension Qualifiers: Hypertension type: essential hypertension Qualified Code(s): I10 - Essential (primary) hypertension (9) Sepsis Qualifiers: Sepsis type: sepsis due to unspecified organism Sepsis acute organ dysfu nction status: unspecified Qualified Code(s): A41.9 - Sepsis, unspecified organism (10) Pneumonia Qualifiers: Pneumonia type: due to unspecified organism Laterality: left Lung location: unspecified part of lung Qualified Code(s): J18.9 - Pneumonia, unspecified organism
--- NOTE | 2018-12-30 18:18 | Vascular/End[facility]as Progress Note ---
Date of Encounter: 12/30/18 Time of Encounter: 16:15 - Assessment and plan (1) Atherosclerosis of [place] arteries of extremities with intermittent claudication, bilateral legs Current Visit: Yes Status: Chronic The patient severe peripheral vascular disease. He has a right iliac, femoral and popliteal artery occlusion. He has no options for percutaneous revascularization. If the patient becomes a candidate for general anesthesia, a right femoral vessel exploration as well as possible femoral to femoral artery bypass graft is warranted. At this time the patient will obtain with pain medication and daily aspirin. He will follow-up in vascular clinic as an outpatient. (2) COPD (chronic obstructive pulmonary disease) Current Visit: Yes Status: Chronic Qualifiers: COPD type: COPD with acute exacerbation Qualified Code(s): J44.1 - Chronic obstructive pulmonary disease with (acute) exacerbation (3) Congestive heart failure Current Visit: Yes Status: Chronic The patient is currently being evaluated by Cardiology for congestive heart failure. Qualifiers: Heart failure type: diastolic Heart failure chronicity: acute on chronic Qualified Code(s): I50.33 - Acute on chronic diastolic (congestive) heart failure (4) Pneumonia Current Visit: Yes Status: Resolved The patient is currently being treated for pneumonia. Qualifiers: Pneumonia type: due to unspecified organism Laterality: left Lung location: unspecified part of lung Qualified Code(s): J18.9 - Pneumonia, unspecified organism (5) Hypertension Current Visit: Yes Status: Acute The patient was counseled regarding atherosclerotic risk factor reduction. Qualifiers: Hypertension type: essential hypertension Qualified Code(s): I10 - Essential (primary) hypertension - Subjective Interval history: The patient is alert and comfortable. He reports that he is feeling better. He is able to ambulate across his room today. He denies any fevers or chills. He reports adequate pain control. Vital Signs, Last 4 Hours Temp Pulse Resp BP Pulse Ox 12/30/18 15:02 97.9 F 86 18 95 12/30/18 14:32 86 151/64 - Physical Examination General: Present: Conversant HEENT: Present: Pupils equal Cardiac: Present: Reg Rate and Rhythm Lungs: Present: Other (Breath sounds bilaterally) Neuro: Present: Alert and responsive, No focal deficits noted Vascular: Present: Normal capillary refill, Pulse, absent (Right femoral, popliteal, posterior tibial and dorsalis pedis arteries, left popliteal, posterior tibial and dorsalis pedis arteries.), Pulse, normal (Left femoral). Absent: Cyanosis, Edema Abdomen: Present: Soft Skin: Present: No rashes noted on visualized skin Results 12/30/18 10:42 12/30/18 10:42 Lab Results, Last 24 hours 12/30/18 12/30/18 10:42 10:42 WBC 23.6 H Hgb 12.5 L Hct 39.9 Plt Count 477 H Sodium 139 Potassium 4.0 Chloride 94 L Carbon Dioxide 39 H BUN 24 H Creatinine 0.89 Glucose 118 H Calcium 9.5 Consult Discharge Plan - Plan Referrals: Malika Arriaga MD [Primary Care Provider] -
[2018-12-30] MEDS: Melatonin 3 MG TABLET PO PRN (19:55)
[2018-12-31] MEDS: Ipratropium/Albuterol Neb 3 ML IH SCH ×5 (00:23→16:02)
[2018-12-31 03:43] LABS: BUN/Creatinine Ratio 28 (6-26); Blood Urea Nitrogen 24 mg/dL (8-23); Carbon Dioxide 30 mEq/L (23-29); Chloride 97 mEq/L (98-107); Glucose 129 mg/dL (70-105); Osmolality,Calculated 290 (280-300); Potassium 4.2 mEq/L (3.5-5.1); Sodium 137 mEq/L (136-145); eGFR For African Americans > 60 (> 60); eGFR For Non-African Americans > 60 (> 60)
[2018-12-31 03:55] LABS: Basophils % 0.3 %; Immature Granulocytes % 2.2 % (0-4); Lymphocytes % 12.5 %; Mean Platelet Volume 9.3 fL (9.4-12.4)
[2018-12-31 03:56] LABS: Basophils # 0.1 K/mcL (0.0-0.2); Eosinophils # 0.2 K/mcL (0.0-0.6); Eosinophils % 0.9 %; Hematocrit 38.3 % (37.5-50.1); Hemoglobin 12.1 g/dL (12.9-16.9); Lymphocytes # 3.3 K/mcL (0.6-4.6); Mean Corpuscular HGB Conc 31.6 g/dL (31.6-35.5); Mean Corpuscular Hemoglobin 30.3 pg (28.0-33.3); Mean Corpuscular Volume 95.8 fL (83.0-100.0); Monocytes # 1.9 K/mcL (0.0-1.3); Monocytes % 7.2 %; Platelet Count 483 K/mcL (140-400); Segmented Neutrophils % 76.9 %
[2018-12-31 05:13] LABS: Platelet Estimate Normal (Normal)
[2018-12-31] MEDS: *HR* Enoxaparin 40 MG/0.4 ML SYRINGE SQ SCH (06:04)
[2018-12-31 07:36] VITALS: BP 132/79
[2018-12-31] MEDS ORDERED: Furosemide 40 MG/4 ML VIAL IVP ONE (09:39)
[2018-12-31] MEDS: Aspirin 81 MG TAB.CHEW PO SCH (09:47)
[2018-12-31] MEDS: Pregabalin 50 MG CAPSULE PO SCH ×2 (09:47→15:56)
[2018-12-31] MEDS: predniSONE 10 MG TABLET PO SCH (09:48)
[2018-12-31] MEDS: Sennosides/Docusate Sodium TABLET PO SCH (09:48)
[2018-12-31] MEDS: Diltiazem CD (24hr) 180 MG CAPSULE PO SCH (09:48)
--- NOTE | 2018-12-31 11:11 | Discharge Summary ---
<Ti Soriano Teofilo - Last Filed: 12/31/18 16:10> - NOTES TO OUTPATIENT PROVIDER Notes to Outpatient Provider: Pt will require follow up for his Lasix, HTN, and lower extremity edema Date of Encounter: 12/31/18 Time of Encounter: 10:00 - Discharge Diagnosis (1) Acute respiratory failure with hypoxemia Priority: Primary Status: Acute (2) COPD (chronic obstructive pulmonary disease) Priority: Secondary Status: Chronic Qualifiers: COPD type: COPD with acute exacerbation Qualified Code(s): J44.1 - Chronic obstructive pulmonary disease with (acute) exacerbation (3) Congestive heart failure Priority: Secondary Status: Chronic Qualifiers: Heart failure type: diastolic Heart failure chronicity: acute on chronic Qualified Code(s): I50.33 - Acute on chronic diastolic (congestive) heart failure (4) Sepsis Priority: Secondary Status: Resolved Qualifiers: Sepsis type: sepsis due to unspecified organism Sepsis acute organ dysfunction status: unspecified Qualified Code(s): A41.9 - Sepsis, unspecified organism (5) Pneumonia Priority: Secondary Status: Resolved Qualifiers: Pneumonia type: due to unspecified organism Laterality: left Lung location: unspecified part of lung Qualified Code(s): J18.9 - Pneumonia, unspecified organism (6) COPD exacerbation Priority: Secondary Status: Acute (7) Arterial insufficiency of lower extremity Priority: Secondary Status: Acute (8) Elevated troponin Priority: Secondary Status: Acute (9) ISAEL (acute kidney injury) Priority: Secondary Status: Acute (10) Hypertension Priority: Secondary Status: Acute Qualifiers: Hypertension type: essential hypertension Qualified Code(s): I10 - Essential (primary) hypertension (11) Moderate to severe pulmonary hypertension Priority: Secondary Status: Acute Hospital course: Mr. Gracia is a 73 year old male with past medical history of hypertension, COPD, tobacco abuse. He initially presented to [facility] via EMS for increased shortness of breath. Reports intermittent episode of right leg pain and cyanosis that have been going on for 1 month. EMS reports patients SpO2 was 86% and they started him on 4LPM O2 via NC. Labs at [facility] included sodium 132, potassium 5.5, chloride 90, BUN of 22, creatinine 1.09, glucose 111, white blood cell count 24.6, hemoglobin 13.7, hematocrit 43.2, and a negative lactic acid. Troponin at [facility] was 0.3 with an EKG that showed some ST segment depression. A chest x ray was obtained which showed left lower lobe infiltrate. He was started on IV Levaquin empirically for pneumonia. He was placed on BiPAP, give duonebs and solumedrol. He was then transferred to [facility] from [facility] for a higher level of care. While at [facility] the patient met SIRS criteria with a possible pneumonia. Troponins were trended with a repeat increased at 0.5. Cardiology was subsequently consulted, and the pt was placed on IV heparin. Troponins were trended until normalized. Echo on 12/19 showing LVEF 50-55% with mild L ventricular systolic dysfunction, atypical septal motion consistent with a bundle branch block, and dilated RV with severe pulmonary HTN. Nephrology was consulted to aid in the diuresis with 40 mg Furosemide, as well as for ISAEL. The pt underwent a LHC on 12/24 with 2 stents placed. Patient remained on O2 via nasal cannula. Cardiology started the pt on ASA, high intensity statin, and metoprolol. The patient's SOB improved throughout admission and he completed a 7 day course of Levaquin. The patient also received a prolonged steroid taper, with 2 days remaining of 10mg daily at time of discharge. Supplemental O2 was weaned down and the patient had a 6 minute walk test prior to discharge. Throughout hospital stay the patients right leg would become cyanotic, cold, and the pulses in the LE were not able to be palpated. Patient reports that he got Doppler at [facility] 12/18 that was negative for DVT and was not been on anticoagulation outpatient. The patient was placed on IV heparin on 12/19 and vascular surgery was consulted. A repeat Doppler was performed on 12/19 which was negative for DVT or SVT during one of these cyanotic episodes. JOE on 12/20 results showed 0.19 in the R LE and 0.42 L LE. Further evaluation with angiogram showed occlusion of multiple vessels in the right LE and some occlusions in the left LE. Patients pain was managed with Percocet, and oxycodone. The patient's home gabapentin was transitioned to Lyrica 25 mg TID with improvement in claudication pain. Vascular surgery recommended outpatient follow up as the patient is a high risk surgical candidate and would require an extensive surgery. Patient was discharged with 2 more days of 10 mg oral prednisone to complete the prolonged taper. He was provided prescriptions for Atorvastatin to 80mg daily, metoprolol 25mg BID, ASA 81mg daily, Plavix 75mg daily, and Lyrica 25mg TID. Cardiology recommended DAPT for minimum 1 year uninterrupted. Recommended continued diuresis with 40 mg Lasix daily for the next 3 days with close follow up with PCP to monitor kidney functions. Also recommended to follow up with vascular surgery as above. Smoking cessation education was discussed with the patient as well as regular use of daily and rescue inhalers. Pt stable for discharge to home. Discharge discussed with: patient, family, nurse, social work, vocational rehab consultant - Time Spent with Patient Total time spent providing and/or coordinating discharge services: - Discharge Medications Prescriptions: New Atorvastatin [Lipitor] 80 mg PO HS 30 Days #30 tablet Metoprolol [Lopressor] 25 mg PO BID 30 Days #60 tablet Pregabalin [Lyrica] 50 mg PO TID 30 Days #90 capsule Clopidogrel [Plavix] 75 mg PO DAILY 30 Days #30 tablet predniSONE [PredniSONE] 10 mg PO DAILY 2 Days #2 tablet Aspirin [[place] Aspirin EC] 81 mg PO DAILY 30 Days #30 tablet. Furosemide [Lasix] 40 mg PO DAILY 3 Days #3 tab Continued Diltiazem HCl [Cardizem Cd] 360 mg PO DAILY Ipratropium/Albuterol Neb [Duoneb] 3 ml IH Q6H PRN PRN Reason: Wheezing Albuterol Sulfate [Albuterol Sulfate Hfa] 2 puff IH QID PRN PRN Reason: Wheezing HYDROcodone/Acet 5/325 mg [[place] 5-325 mg] 1 tab PO TID PRN PRN Reason: Pain Discontinued Losartan/Hydrochlorothiazide [Losartan-Hctz 100-25 mg Tab] 1 tab PO DAILY Home Medications: Albuterol Sulfate [Albuterol Sulfate Hfa] 2 puff IH QID PRN 12/19/18 [History] Diltiazem HCl [Cardizem Cd] 360 mg PO DAILY 12/19/18 [History] Ipratropium/Albuterol Neb [Duoneb] 3 ml IH Q6H PRN 12/19/18 [History] HYDROcodone/Acet 5/325 mg [[place] 5-325 mg] 1 tab PO TID PRN 12/20/18 [History] Aspirin [[place] Aspirin EC] 81 mg PO DAILY 30 Days #30 tablet. 12/31/18 [Rx] Atorvastatin [Lipitor] 80 mg PO HS 30 Days #30 tablet 12/31/18 [Rx] Clopidogrel [Plavix] 75 mg PO DAILY 30 Days #30 tablet 12/31/18 [Rx] Furosemide [Lasix] 40 mg PO DAILY 3 Days #3 tab 12/31/18 [Rx] Metoprolol [Lopressor] 25 mg PO BID 30 Days #60 tablet 12/31/18 [Rx] Pregabalin [Lyrica] 50 mg PO TID 30 Days #90 capsule 12/31/18 [Rx] predniSONE [PredniSONE] 10 mg PO DAILY 2 Days #2 tablet 12/31/18 [Rx] Allergies/Adverse Reactions: Allergy/AdvReac Type Severity Reaction Status Date / Time No Known Allergies Allergy Verified 12/19/18 17:32 Date of admission: 12/19/18 15:09 Primary care physician: Malika Arriaga MD Consults: 12/20/18 11:19 Consult to Cardiology [CONS] Routine Comment: Consulting Provider: Cardiology Melissa Reason for Consult: elevated trops, EKG from [facility] reported to have ST depressions. Mild segmental wall dysfunction seen on echo Call Completed: No 12/20/18 13:56 Consult to Vascular Surgery [CONS] Routine Consulting Provider: Vascular Surgery Melissa Reason for Consult: PAD. Prelim ABIs were 0.19 on the right and 0.42 on the left. Call Completed: Yes 12/22/18 10:10 Consult to Cardiac Rehabilitation-Phase1 [CONS] Routine Comment: Reason for Consult: troponins Call Completed: No 12/23/18 10:54 Consult to Nephrology [CONS] Routine Consulting Provider: Kidney Melissa/LATRELL/PK/KINGSLEY Reason for Consult: worsening kidney functions Call Completed: Yes - Constitutional Vitals: Temp Pulse Resp BP Pulse Ox 97.7 F 91 19 132/79 95 12/31/18 07:34 12/31/18 07:34 12/31/18 11:05 12/31/18 07:34 12/31/18 11:05 General appearance: Present: cooperative, A&O X 3, no acute distress, answers questions appropriately Exam: General: elderly male in no acute distress Head: NCAT Eyes:PERRL, EOMI, sclera anicteric Neck: suppler, trachea midline Heart: RRR +s1 +s2 No murmurs, clicks, or rubs Lungs: CTA bilaterally. non-labored breathing on 2lpm O2 via nasal cannula. Grossly diminished breath sounds GI: abdomen soft, non-tender, non-distended Neuro: A&Ox3 No focal deficits. No speech difficulty or abnormality Ext: LE pulses detected with doppler, but non-palpable bilaterally. +2 pitting edema of the left leg. No calf tenderness. Skin: Signs of venous/arterial stasis on the plant surface of the foot back to the calcaneous, as well as in the 1st and 5th toes. No trauma, gangrene or ulcers present on foot. - Patient Status Disposition: Home Health Service Functional capacity at discharge: independent ambulation Overall status at discharge: patient is progressing back to baseline - Discharge Instructions Instructions: Metoprolol (By mouth), Furosemide (By mouth), Prednisone (By mouth), Aspirin (By mouth), Atorvastatin (By mouth), Clopidogrel (By mouth), Pregabalin (By mouth), Peripheral Vascular Disorders (DC), Chronic Obstructive Pulmonary Disease (DC), Chronic Hypertension (DC) Follow Up With: Malika Arriaga MD [Primary Care Provider] - 01/03/19 11:00 am - Diet and Activity Activity: increase activity as tolerated, resume usual activities as tolerated, wear oxygen at all times Diet: low fat, low cholesterol, low salt diet <Joe Li - Last Filed: 12/31/18 21:40> Date of Encounter: 12/31/18 - Discharge Diagnosis (1) Acute respiratory failure with hypoxemia Status: Acute (2) COPD (chronic obstructive pulmonary disease) Status: Chronic Qualifiers: COPD type: COPD with acute exacerbation Qualified Code(s): J44.1 - Chronic obstructive pulmonary disease with (acute) exacerbation (3) Congestive heart failure Status: Chronic Qualifiers: Heart failure type: diastolic Heart failure chronicity: acute on chronic Qualified Code(s): I50.33 - Acute on chronic diastolic (congestive) heart failure (4) Sepsis Status: Resolved Qualifiers: Sepsis type: sepsis due to unspecified organism Sepsis acute organ dysfunction status: unspecified Qualified Code(s): A41.9 - Sepsis, unspecified organism (5) Pneumonia Status: Resolved Qualifiers: Pneumonia type: due to unspecified organism Laterality: left Lung location: unspecified part of lung Qualified Code(s): J18.9 - Pneumonia, unspecified organism (6) COPD exacerbation Status: Acute (7) Arterial insufficiency of lower extremity Status: Acute (8) Elevated troponin Status: Acute (9) ISAEL (acute kidney injury) Status: Acute (10) Hypertension Status: Acute Qualifiers: Hypertension type: essential hypertension Qualified Code(s): I10 - Essential (primary) hypertension (11) Moderate to severe pulmonary hypertension Status: Acute Hospital course: Mr. Gracia is a 73 year old male - Time Spent with Patient Total time spent providing and/or coordinating discharge services: Date of admission: 12/19/18 15:09 Primary care physician: Malika Arriaga MD Consults: 12/20/18 11:19 Consult to Cardiology [CONS] Routine Comment: Consulting Provider: Cardiology Roll[place] Reason for Consult: elevated trops, EKG from [facility] reported to have ST depressions. Mild segmental wall dysfunction seen on echo Call Completed: No 12/20/18 13:56 Consult to Vascular Surgery [CONS] Routine Consulting Provider: Vascular Surgery [facility] Reason for Consult: PAD. Prelim ABIs were 0.19 on the right and 0.42 on the left. Call Completed: Yes 12/22/18 10:10 Consult to Cardiac Rehabilitation-Phase1 [CONS] Routine Comment: Reason for Consult: troponins Call Completed: No 12/23/18 10:54 Consult to Nephrology [CONS] Routine Consulting Provider: Kidney Melissa/LATRELL/PK/KINGSLEY Reason for Consult: worsening kidney functions Call Completed: Yes - Constitutional Vitals: Temp Pulse Resp BP Pulse Ox 97.7 F 91 19 132/79 92 12/31/18 07:34 12/31/18 07:34 12/31/18 11:05 12/31/18 07:34 12/31/18 12:23 - Attending Attestation I saw evaluated and examined this patient and reviewed objective data including labs and my medical decision-making was reviewed with the Resident Remedios grande/Medical Student. I agree with the documented findings, disposition and treatment plan as described except to any changes set forth below. We independently had [id number] contact with the patient. Given patient weakness and need for further monitoring, we recommend to patient to have PT/OT evaluation as he would possibly need placed to rehab. However, he refuses an evaluation and states he absolutely refuses to be placed anywhere. I discussed with patient and , this makes him high risk for returning with worsening respiratory or cardiac status and even possibly . Patient acknowledged these risks and declines placement, wants to go home. He will be discharged with prescription for Lasix 40 mg PO daily, finishing Prednisone taper, Aspirin/Plavix, Lyrica, Metoprolol. He will be followed by PCP in no later than 3 days. To follow: - Adjust diuretics as needed and recheck BMP. Nephrology was consulted due to ISAEL and difficulty with diuresis. - Follow-up with Vascular Surgery for peripheral vascular disease - Follow-up chest x-ray post pneumonia treatment, completed 7 days [facility]. Discharge time 45 min
--- NOTE | 2018-12-31 14:15 | Physician Discharge Referral ---
Home Health/Hosp Referral Info Transfer to: Home Health Provider in Charge Post Discharge: PCP - Diagnosis (1) Acute respiratory failure with hypoxemia Priority: Primary Status: Acute (2) COPD (chronic obstructive pulmonary disease) Priority: Secondary Status: Chronic (3) Congestive heart failure Priority: Secondary Status: Chronic (4) Sepsis Priority: Secondary Status: Resolved (5) Pneumonia Priority: Secondary Status: Resolved (6) COPD exacerbation Priority: Secondary Status: Acute (7) Arterial insufficiency of lower extremity Priority: Secondary Status: Acute (8) Elevated troponin Priority: Secondary Status: Acute (9) ISAEL (acute kidney injury) Priority: Secondary Status: Acute (10) Hypertension Priority: Secondary Status: Acute (11) Moderate to severe pulmonary hypertension Priority: Secondary Status: Acute - Respiratory Orders Smoking Cessation: Smoking cessation has been advised. For more information, call the [place] Tobacco Quit Line at 2-527-TIVN-NOW. - Services Needed Following services are medically necessary services: Nursing, Home Health Aide, Physical Therapy, Occupational Therapy - Transfer Medications Prescriptions: Furosemide [Lasix] 40 mg PO DAILY 3 Days #3 tab Prescription Printed Atorvastatin [Lipitor] 80 mg PO HS 30 Days #30 tablet Prescription Printed Metoprolol [Lopressor] 25 mg PO BID 30 Days #60 tablet Prescription Printed Pregabalin [Lyrica] 50 mg PO TID 30 Days #90 capsule Prescription Printed Clopidogrel [Plavix] 75 mg PO DAILY 30 Days #30 tablet Prescription Printed predniSONE [PredniSONE] 10 mg PO DAILY 2 Days #2 tablet Prescription Printed Aspirin [[place] Aspirin EC] 81 mg PO DAILY 30 Days #30 tablet. Prescription Printed Home Medications: Albuterol Sulfate [Albuterol Sulfate Hfa] 2 puff IH QID PRN 12/19/18 [History] Diltiazem HCl [Cardizem Cd] 360 mg PO DAILY 12/19/18 [History] Ipratropium/Albuterol Neb [Duoneb] 3 ml IH Q6H PRN 12/19/18 [History] HYDROcodone/Acet 5/325 mg [[place] 5-325 mg] 1 tab PO TID PRN 12/20/18 [History] Aspirin [[place] Aspirin EC] 81 mg PO DAILY 30 Days #30 tablet. 12/31/18 [Rx] Atorvastatin [Lipitor] 80 mg PO HS 30 Days #30 tablet 12/31/18 [Rx] Clopidogrel [Plavix] 75 mg PO DAILY 30 Days #30 tablet 12/31/18 [Rx] Furosemide [Lasix] 40 mg PO DAILY 3 Days #3 tab 12/31/18 [Rx] Metoprolol [Lopressor] 25 mg PO BID 30 Days #60 tablet 12/31/18 [Rx] Pregabalin [Lyrica] 50 mg PO TID 30 Days #90 capsule 12/31/18 [Rx] predniSONE [PredniSONE] 10 mg PO DAILY 2 Days #2 tablet 12/31/18 [Rx] Allergies/Adverse Reactions: Allergy/AdvReac Type Severity Reaction Status Date / Time No Known Allergies Allergy Verified 12/19/18 17:32 Certification: Further, I certify that my clinical findings support that this patient is home bound (i.e. absences from home require considerable and taxing effort and are for medical reasons or [facility] services or infrequently or short duration when for other reasons) because: Homebound Reason: Patient requires assistance of a person or device to safely leave home, Leaving home requires considerable and taxing effort due to condition Attestation: My signature below is to certify that this patient is under my care and that I, or nurse practitioner, or a physician's promotions assistant working with me, has a [id number] encounter with this patient.
== END 2018-12-31 18:12 | disposition home health service (06) | DRG 853 ==
LOC: 2NENU → SUATTDRO 15:09
PROVIDERS: ADMIT Internal Medicine; ATTEND Student in an Organized Health Care Education/Training Program

== ENCOUNTER 2019-01-17 10:36 | Inpatient (IN) ==
[~2019-01-17 10:36] MED LIST: Vancomycin 1,000 MG, Sodium Chloride IRRigation 1,000 ML IR ONE
[2019-01-17] MEDS ORDERED: Famotidine 20 MG/2 ML VIAL IVP ONE (10:43)
[2019-01-17] MEDS ORDERED: Pregabalin 75 MG CAPSULE PO ONE (10:44)
[2019-01-17] MEDS ORDERED: Acetaminophen IV 1,000 MG/100 ML INFUS..BTL IVPB ONE (10:44)
[2019-01-17] MEDS ORDERED: Ringers Solution, Lactated 1,000 ML IVC SCH (10:45)
[2019-01-17] MEDS ORDERED: CeFAZolin Syr 2,000MG/20 ML 2,000 MG/20 ML SYRINGE IVPB ONE (11:00)
[2019-01-17] MEDS ORDERED: Heparin 1,000 UNITS/500 mL 500 ML ONE ×2 (11:00→11:34)
[2019-01-17] MEDS ORDERED: Albuterol 2.5 MG/3 ML NEBULIZER IH PRN (11:00)
[2019-01-17] MEDS ORDERED: *HR* Propofol 200 MG/20 ML VIAL IVP ONE (11:04)
[2019-01-17] MEDS ORDERED: Lidocaine -MPF 4% 5 ML AMPUL ONE (11:04)
[2019-01-17] MEDS ORDERED: *HR* FentaNYL (PF) 100 MCG/2 ML VIAL ONE ×3 (11:04→16:18)
[2019-01-17] MEDS ORDERED: *HR* Vasopressin 20 UNIT/ML VIAL ONE (11:04)
[2019-01-17] MEDS ORDERED: Lidocaine -MPF 2% 2 ML VIAL ONE ×2 (11:05→12:03)
[2019-01-17] MEDS ORDERED: *HR* Rocuronium Bromide 50 MG/5 ML VIAL ONE (11:05)
[2019-01-17] MEDS ORDERED: *HR* Succinylcholine 200 MG/10 ML VIAL IVP ONE (11:05)
[2019-01-17] MEDS ORDERED: NiCARdipine 2.5 MG/10 ML Syringe IVPB ONE (11:05)
[2019-01-17] MEDS ORDERED: Dexamethasone 4 MG/ML VIAL ONE (11:05)
[2019-01-17] MEDS ORDERED: *HR* Heparin 5,000 UNIT/ML VIAL ONE ×2 (11:05→14:20)
[2019-01-17] MEDS ORDERED: *HR* Etomidate 40 MG/20 ML VIAL IVP ONE (11:05)
[2019-01-17] MEDS ORDERED: Ondansetron 4 MG/2 ML VIAL ONE (11:05)
[2019-01-17] MEDS ORDERED: *HR* Labetalol 20 MG/4 ML SYRINGE IVP PRN (11:24)
[2019-01-17] MEDS ORDERED: *HR* HYDROmorphone (PF) 1 MG/ML SYRINGE IVP PRN (11:24)
[2019-01-17] MEDS ORDERED: Ondansetron 4 MG/2 ML VIAL IVP ONE (11:24)
[2019-01-17] MEDS ORDERED: Furosemide 40 MG/4 ML VIAL ONE (11:31)
[2019-01-17] MEDS ORDERED: EPHEDrine 50 MG/ML VIAL ONE (11:32)
[2019-01-17] MEDS ORDERED: Hydrocortisone Sodium Succ 100 MG/2 ML VIAL ONE (11:51)
[2019-01-17] MEDS ORDERED: Vancomycin 1,000 MG VIAL ONE (11:54)
[2019-01-17] MEDS ORDERED: Calcium Gluconate 1,000 MG/10 ML VIAL ONE (13:27)
[2019-01-17] MEDS ORDERED: Acetaminophen 325 MG TABLET PO PRN ×2 (17:06)
[2019-01-17] MEDS ORDERED: Ipratropium/Albuterol Neb 3 ML IH PRN (17:06)
[2019-01-17] MEDS ORDERED: Naloxone 0.4 MG/ML INJ IVP PRN (17:06)
[2019-01-17] MEDS ORDERED: Ondansetron 4 MG/2 ML VIAL IVP PRN (17:06)
[2019-01-17] MEDS ORDERED: *HR* HYDROcodone/Acet 5/325 mg TABLET PO PRN (17:06)
[2019-01-17] MEDS ORDERED: *HR* OxyCODONE Immed Rel 5 MG TABLET PO PRN (17:06)
[2019-01-17] MEDS ORDERED: *HR* Heparin 5,000 UNIT/ML VIAL SQ SCH (18:00)
[2019-01-17] MEDS: *HR* Heparin 5,000 UNIT/ML VIAL SQ SCH (18:32)
[2019-01-17] MEDS: *HR* Metoprolol 5 MG/5 ML VIAL IVP SCH (18:32)
[2019-01-17] MEDS: *HR* OxyCODONE Immed Rel 5 MG TABLET PO PRN (20:31)
[2019-01-17] MEDS: Pregabalin 50 MG CAPSULE PO SCH (20:31)
[2019-01-17] MEDS: *HR* Labetalol 20 MG/4 ML SYRINGE IVP PRN (22:37)
[2019-01-18] MEDS: *HR* Metoprolol 5 MG/5 ML VIAL IVP SCH ×2 (00:27→05:26)
[2019-01-18] MEDS: *HR* Labetalol 20 MG/4 ML SYRINGE IVP PRN (01:44)
[2019-01-18] MEDS: *HR* HYDROcodone/Acet 5/325 mg TABLET PO PRN ×2 (01:47→08:15)
[2019-01-18 05:14] LABS: Basophils % 0.2 %; Eosinophils # 0.1 K/mcL (0.0-0.6); Eosinophils % 0.5 %; Hematocrit 29.4 % (37.5-50.1); Hemoglobin 9.3 g/dL (12.9-16.9); Immature Granulocytes % 0.9 % (0-4); Lymphocytes # 1.8 K/mcL (0.6-4.6); Lymphocytes % 10.5 %; Mean Corpuscular HGB Conc 31.6 g/dL (31.6-35.5); Mean Corpuscular Hemoglobin 29.6 pg (28.0-33.3); Mean Corpuscular Volume 93.6 fL (83.0-100.0); Mean Platelet Volume 9.1 fL (9.4-12.4); Monocytes # 1.2 K/mcL (0.0-1.3); Monocytes % 7.1 %; Neutrophils # 13.9 K/mcL (1.6-8.9); Platelet Count 495 K/mcL (140-400); Red Blood Count 3.14 M/mcL (4.19-5.50); Red Cell Distribution Width 14.6 % (11.5-14.5); Segmented Neutrophils % 80.8 %; White Blood Count 17.2 K/mcL (4.3-11.1)
[2019-01-18] MEDS: *HR* Heparin 5,000 UNIT/ML VIAL SQ SCH ×2 (05:26→17:34)
[2019-01-18] MEDS: *HR* OxyCODONE Immed Rel 5 MG TABLET PO PRN ×3 (05:26→17:34)
[2019-01-18 05:33] LABS: BUN/Creatinine Ratio 23 (6-26); Blood Urea Nitrogen 18 mg/dL (8-23); Calcium 8.8 mg/dL (8.6-10.3); Carbon Dioxide 34 mEq/L (23-29); Chloride 99 mEq/L (98-107); Glucose 110 mg/dL (70-105); Osmolality,Calculated 291 (280-300); Potassium 3.9 mEq/L (3.5-5.1); Sodium 139 mEq/L (136-145); eGFR For African Americans > 60 (> 60); eGFR For Non-African Americans > 60 (> 60)
[2019-01-18] MEDS: Pregabalin 50 MG CAPSULE PO SCH ×3 (08:15→20:13)
[2019-01-18] MEDS ORDERED: Aspirin Enteric Coated 81 MG Tablet PO SCH (09:00)
[2019-01-18] MEDS ORDERED: Diltiazem CD (24hr) 180 MG CAPSULE PO SCH (09:00)
[2019-01-18] MEDS ORDERED: Furosemide 40 MG TABLET PO SCH (09:00)
[2019-01-18] MEDS ORDERED: Ondansetron 4 MG/2 ML VIAL IVP PRN (14:43)
[2019-01-18] MEDS ORDERED: *HR* HYDROcodone/Acet 5/325 mg TABLET PO PRN (14:43)
[2019-01-18] MEDS ORDERED: Acetaminophen 325 MG TABLET PO PRN (14:43)
[2019-01-18] MEDS ORDERED: *HR* Labetalol 20 MG/4 ML SYRINGE IVP PRN (14:43)
[2019-01-18] MEDS ORDERED: Ipratropium/Albuterol Neb 3 ML IH PRN (14:43)
[2019-01-18] MEDS ORDERED: Naloxone 0.4 MG/ML INJ IVP PRN (14:43)
[2019-01-19 01:16] LABS: Basophils # 0.1 K/mcL (0.0-0.2); Basophils % 0.5 %; Eosinophils # 0.2 K/mcL (0.0-0.6); Eosinophils % 1.2 %; Hematocrit 28.9 % (37.5-50.1); Hemoglobin 9.1 g/dL (12.9-16.9); Immature Granulocytes % 1.3 % (0-4); Lymphocytes # 1.8 K/mcL (0.6-4.6); Mean Corpuscular HGB Conc 31.5 g/dL (31.6-35.5); Mean Corpuscular Hemoglobin 29.4 pg (28.0-33.3); Mean Corpuscular Volume 93.5 fL (83.0-100.0); Mean Platelet Volume 9.2 fL (9.4-12.4); Monocytes # 1.2 K/mcL (0.0-1.3); Monocytes % 7.8 %; Neutrophils # 11.8 K/mcL (1.6-8.9); Nucleated Red Blood Cells 0.1 /100 WBC (0); Platelet Count 482 K/mcL (140-400); Red Blood Count 3.09 M/mcL (4.19-5.50); Red Cell Distribution Width 14.7 % (11.5-14.5); Segmented Neutrophils % 77.2 %; White Blood Count 15.3 K/mcL (4.3-11.1)
[2019-01-19 01:37] LABS: Alanine Aminotransferase 9 Units/L (7-52); Albumin 2.8 g/dL (3.5-5.7); Albumin/Globulin Ratio 1.1 (1.1-2.2); Alkaline Phosphatase 72 Units/L (34-104); Aspartate Amino Transferase 14 Units/L (13-39); BUN/Creatinine Ratio 17 (6-26); Bilirubin,Total 0.4 mg/dL (0.3-1.0); Blood Urea Nitrogen 21 mg/dL (8-23); Calcium 8.4 mg/dL (8.6-10.3); Carbon Dioxide 32 mEq/L (23-29); Chloride 97 mEq/L (98-107); Globulin 2.6 g/dL (2.4-3.5); Glucose 127 mg/dL (70-105); Magnesium 1.8 mg/dL (1.6-2.6); Osmolality,Calculated 287 (280-300); Phosphorous 3.1 mg/dL (2.7-4.5); Potassium 4.3 mEq/L (3.5-5.1); Sodium 136 mEq/L (136-145); Total Protein 5.4 g/dL (6.4-8.9); eGFR For African Americans > 60 (> 60); eGFR For Non-African Americans 58 (> 60)
[2019-01-19] MEDS: *HR* OxyCODONE Immed Rel 5 MG TABLET PO PRN ×3 (03:19→16:36)
[2019-01-19] MEDS: *HR* Heparin 5,000 UNIT/ML VIAL SQ SCH ×2 (05:35→18:12)
[2019-01-19] MEDS: Furosemide 40 MG TABLET PO SCH (08:01)
[2019-01-19] MEDS: Diltiazem CD (24hr) 180 MG CAPSULE PO SCH (08:01)
[2019-01-19] MEDS: Pregabalin 50 MG CAPSULE PO SCH ×3 (08:02→20:30)
[2019-01-19] MEDS: Aspirin Enteric Coated 81 MG Tablet PO SCH (08:02)
[2019-01-19] MEDS ORDERED: Furosemide 20 MG/2 ML VIAL IVP ONE (13:23)
[2019-01-20 05:00] LABS: Basophils # 0.1 K/mcL (0.0-0.2); Basophils % 0.4 %; Eosinophils # 0.2 K/mcL (0.0-0.6); Eosinophils % 1.5 %; Hematocrit 33.6 % (37.5-50.1); Hemoglobin 10.4 g/dL (12.9-16.9); Immature Granulocytes % 1.8 % (0-4); Lymphocytes # 1.9 K/mcL (0.6-4.6); Lymphocytes % 13.6 %; Mean Corpuscular Hemoglobin 29.1 pg (28.0-33.3); Mean Corpuscular Volume 93.9 fL (83.0-100.0); Mean Platelet Volume 8.9 fL (9.4-12.4); Monocytes % 7.5 %; Neutrophils # 10.4 K/mcL (1.6-8.9); Platelet Count 540 K/mcL (140-400); Red Blood Count 3.58 M/mcL (4.19-5.50); Red Cell Distribution Width 14.5 % (11.5-14.5); Segmented Neutrophils % 75.2 %; White Blood Count 13.8 K/mcL (4.3-11.1)
[2019-01-20 05:19] LABS: Alanine Aminotransferase 10 Units/L (7-52); Albumin 3.1 g/dL (3.5-5.7); Alkaline Phosphatase 86 Units/L (34-104); Aspartate Amino Transferase 15 Units/L (13-39); BUN/Creatinine Ratio 18 (6-26); Bilirubin,Total 0.5 mg/dL (0.3-1.0); Blood Urea Nitrogen 17 mg/dL (8-23); Calcium 9.1 mg/dL (8.6-10.3); Carbon Dioxide 39 mEq/L (23-29); Chloride 93 mEq/L (98-107); Globulin 3.2 g/dL (2.4-3.5); Glucose 124 mg/dL (70-105); Magnesium 1.8 mg/dL (1.6-2.6); Osmolality,Calculated 281 (280-300); Phosphorous 2.7 mg/dL (2.7-4.5); Sodium 134 mEq/L (136-145); Total Protein 6.3 g/dL (6.4-8.9); eGFR For African Americans > 60 (> 60); eGFR For Non-African Americans > 60 (> 60)
[2019-01-20] MEDS: *HR* Heparin 5,000 UNIT/ML VIAL SQ SCH (06:36)
[2019-01-20] MEDS: *HR* OxyCODONE Immed Rel 5 MG TABLET PO PRN (06:36)
[2019-01-20] MEDS: Diltiazem CD (24hr) 180 MG CAPSULE PO SCH (07:22)
[2019-01-20] MEDS: Pregabalin 50 MG CAPSULE PO SCH (07:22)
[2019-01-20] MEDS: Furosemide 40 MG TABLET PO SCH (07:23)
[2019-01-20] MEDS: Aspirin Enteric Coated 81 MG Tablet PO SCH (07:23)
[2019-01-20 12:00] VITALS: BP 141/71
[2019-01-20] MEDS ORDERED: FLU Vac QV 19-20 (6Month+)/PF 0.5 ML SYRINGE IM ONE (12:43)
[2019-01-20 12:57] LABS: ABG Base Excess 10 mEq/L (-2 to 3); ABG Chloride 98 mEq/L (98-107); ABG Glucose 128 mg/dL (60-95); ABG HCO3 35 mEq/L (21-27); ABG Ionized Calcium 1.21 mmol/L (1.15-1.35); ABG Oxygen Saturation 99 % (95-98); ABG PCO2 51 mmHg (35-45); ABG PH 7.45 pH Units (7.32-7.45); ABG PO2 111 mmHg (85-104); ABG TCO2 37 mEq/L (20-26)
== END 2019-01-20 16:18 | disposition home health service (06) | DRG 271 ==
LOC: SAMDAY 10:36 → ICNU 17:02 → 2NNU 01-18 17:32
PROVIDERS: ADMIT Surgery; ATTEND Surgery
PROC: VASFFBG (ICD-10-PCS; 2019-01-17 11:35)

== ENCOUNTER 2019-05-08 04:18 | Inpatient (IN) ==
[2019-05-08] MEDS ORDERED: Naloxone 0.4 MG/ML INJ IVP PRN (08:36)
[2019-05-08] MEDS ORDERED: 0.9 % Sodium Chloride 1,000 ML IVC SCH (08:45)
[2019-05-08] MEDS ORDERED: *HR* FentaNYL (PF) 100 MCG/2 ML VIAL IVP ONE (08:45)
[2019-05-08] MEDS ORDERED: Artificial Tears SOLN 15 ML BOTTLE BOTH EYES PRN (09:06)
[2019-05-08 09:18] LABS: ABG Base Excess 5 mEq/L (-2 to 3); ABG HCO3 32 mEq/L (21-27); ABG Oxygen Saturation 97 % (95-98); ABG PCO2 57 mmHg (35-45); ABG PH 7.36 pH Units (7.32-7.45); ABG PO2 93 mmHg (85-104); ABG TCO2 34 mEq/L (20-26); Blood Gas Modality ASSIST CONTROL; Blood Gas VT 500 cc
[2019-05-08 09:46] LABS: Basophils % 0.1 %; Hematocrit 35.1 % (37.5-50.1); Immature Granulocytes % 0.6 % (0-4); Lymphocytes # 0.4 K/mcL (0.6-4.6); Lymphocytes % 2.5 %; Mean Corpuscular HGB Conc 31.3 g/dL (31.6-35.5); Mean Corpuscular Hemoglobin 28.5 pg (28.0-33.3); Mean Corpuscular Volume 90.9 fL (83.0-100.0); Monocytes # 0.9 K/mcL (0.0-1.3); Monocytes % 5.5 %; Neutrophils # 14.9 K/mcL (1.6-8.9); Platelet Count 248 K/mcL (140-400); Red Blood Count 3.86 M/mcL (4.19-5.50); Red Cell Distribution Width 16.5 % (11.5-14.5); Segmented Neutrophils % 91.3 %; White Blood Count 16.3 K/mcL (4.3-11.1)
[2019-05-08 09:49] LABS: INR 1.1; Prothrombin Time 12.5 Seconds (9.4-12.1)
[2019-05-08 09:52] LABS: Activated Partial Thrombo Time 24.8 Seconds (26.0-36.0)
[2019-05-08] MEDS ORDERED: Albuterol 2.5 MG/3 ML NEBULIZER IH PRN (09:56)
[2019-05-08] MEDS: FentaNYL (PF) 1,000 MCG in 0.9 % Sodium Chloride 80 ML IVC SCH ×2 (09:57→18:02)
[2019-05-08 10:00] LABS: Magnesium 1.7 mg/dL (1.6-2.6)
[2019-05-08 10:01] LABS: BUN/Creatinine Ratio 25 (6-26); Blood Urea Nitrogen 24 mg/dL (8-23); Calcium 8.3 mg/dL (8.6-10.3); Carbon Dioxide 31 mEq/L (23-29); Chloride 104 mEq/L (98-107); Glucose 209 mg/dL (70-105); Osmolality,Calculated 306 (280-300); Potassium 4.5 mEq/L (3.5-5.1); Sodium 143 mEq/L (136-145); eGFR For African Americans > 60 (> 60); eGFR For Non-African Americans > 60 (> 60)
[2019-05-08] MEDS ORDERED: Furosemide 20 MG/2 ML VIAL IVP ONE (10:55)
[2019-05-08] MEDS: Budesonide/Formoterol 160/4.5 1 PUFF INH IH SCH ×2 (10:57→22:42)
[2019-05-08] MEDS: Ipratropium/Albuterol Neb 3 ML IH SCH ×3 (10:57→22:42)
[2019-05-08 11:01] LABS: Adenovirus Not Detected (Not Detect); Bordetella Pertussis Not Detected (Not Detect); Chlamydophila pneumoniae Not Detected (Not Detect); Coronavirus 229E Not Detected (Not Detect); Coronavirus HKU1 DETECTED (Not Detect); Coronavirus NL63 Not Detected (Not Detect); Coronavirus OC43 Not Detected (Not Detect); Human Metapneumovirus Not Detected (Not Detect); Human Rhinovirus/Enterovirus Not Detected (Not Detect); Influenza A Subtype 2009 H1 Not Detected (Not Detect); Influenza B Not Detected (Not Detect); Mycoplasma pneumoniae Not Detected (Not Detect); Parainfluenza Virus 1 Not Detected (Not Detect); Parainfluenza Virus 2 Not Detected (Not Detect); Parainfluenza Virus 3 Not Detected (Not Detect); Parainfluenza Virus 4 Not Detected (Not Detect); Respiratory Syncytial Virus Not Detected (Not Detect)
[2019-05-08] MEDS ORDERED: *HR* Dextrose 50 % in Water (Syg) 50 ML SYRINGE IVP PRN (11:12)
[2019-05-08] MEDS ORDERED: Dextrose Gel 15 GM/37.5 ML TUBE PO PRN ×2 (11:12)
[2019-05-08] MEDS ORDERED: D5% in Water 1,000 ML IVC PRN (11:12)
[2019-05-08] MEDS: Insulin LISPRO 300 UNITS/3 ML VIAL SQ SCH ×3 (11:58→23:12)
[2019-05-08] MEDS: Artificial Tears SOLN 15 ML BOTTLE BOTH EYES SCH ×4 (12:02→23:11)
[2019-05-08] MEDS: Piperacillin/Tazobactam 3.375 GM in 0.9 % Sodium Chloride Mini Bag 100 ML IVPB SCH ×2 (12:19→19:59)
[2019-05-08] MEDS: *HR* Heparin 5,000 UNIT/ML VIAL SQ SCH ×2 (15:28→23:11)
[2019-05-08 16:49] LABS: Estimated Average Glucose 134 mg/dl
[2019-05-08] MEDS ORDERED: *HR* Warfarin 2.5 MG TABLET PO ONE (18:00)
[2019-05-08] MEDS: MethylPREDNISolone 40 MG/ML VIAL IVP SCH (18:01)
[2019-05-08] MEDS: Aspirin 81 MG TAB.CHEW PO SCH (18:01)
[2019-05-08] MEDS ORDERED: Perflutren Lipid Microsphere 1.3 ML in 0.9 % Sodium Chloride 8.7 ML IVP ONE (18:51)
[2019-05-08] MEDS: Norepinephrine 4 MG in 0.9 % Sodium Chloride 250 ML IVC SCH (19:36)
[2019-05-08] MEDS: Azithromycin 500 MG in 0.9 % Sodium Chloride 250 ML IVPB SCH (19:59)
[2019-05-08] MEDS: Chlorhexidine Rinse 15 ML MOUTHWASH MM SCH (20:00)
[2019-05-09] MEDS: FentaNYL (PF) 1,000 MCG in 0.9 % Sodium Chloride 80 ML IVC SCH ×3 (00:43→20:32)
[2019-05-09] MEDS: Piperacillin/Tazobactam 3.375 GM in 0.9 % Sodium Chloride Mini Bag 100 ML IVPB SCH ×3 (03:14→20:43)
[2019-05-09] MEDS: Artificial Tears SOLN 15 ML BOTTLE BOTH EYES SCH ×6 (03:15→23:36)
[2019-05-09] MEDS: Ipratropium/Albuterol Neb 3 ML IH SCH ×4 (03:25→21:04)
[2019-05-09 03:39] LABS: Hematocrit 33.7 % (37.5-50.1); Hemoglobin 10.6 g/dL (12.9-16.9); INR 1.1; Mean Corpuscular HGB Conc 31.5 g/dL (31.6-35.5); Mean Corpuscular Hemoglobin 27.9 pg (28.0-33.3); Mean Corpuscular Volume 88.7 fL (83.0-100.0); Mean Platelet Volume 10.2 fL (9.4-12.4); Platelet Count 262 K/mcL (140-400); Prothrombin Time 12.2 Seconds (9.4-12.1); Red Cell Distribution Width 16.7 % (11.5-14.5)
[2019-05-09 03:48] LABS: BUN/Creatinine Ratio 29 (6-26); Blood Urea Nitrogen 28 mg/dL (8-23); Calcium 8.9 mg/dL (8.6-10.3); Carbon Dioxide 32 mEq/L (23-29); Chloride 103 mEq/L (98-107); Glucose 116 mg/dL (70-105); Osmolality,Calculated 298 (280-300); Potassium 4.6 mEq/L (3.5-5.1); Sodium 141 mEq/L (136-145); eGFR For African Americans > 60 (> 60); eGFR For Non-African Americans > 60 (> 60)
[2019-05-09] MEDS: Insulin LISPRO 300 UNITS/3 ML VIAL SQ SCH ×4 (05:53→23:37)
[2019-05-09] MEDS: MethylPREDNISolone 40 MG/ML VIAL IVP SCH ×2 (05:53→17:50)
[2019-05-09 06:03] LABS: ABG Base Excess 5 mEq/L (-2 to 3); ABG HCO3 33 mEq/L (21-27); ABG Oxygen Saturation 98 % (95-98); ABG PCO2 67 mmHg (35-45); ABG PO2 116 mmHg (85-104); ABG TCO2 35 mEq/L (20-26); Blood Gas VT 500 cc
[2019-05-09] MEDS: Chlorhexidine Rinse 15 ML MOUTHWASH MM SCH ×2 (08:08→20:43)
[2019-05-09] MEDS: *HR* Heparin 5,000 UNIT/ML VIAL SQ SCH ×3 (08:08→23:36)
[2019-05-09] MEDS: Pantoprazole 40 MG VIAL IVP SCH (08:18)
[2019-05-09] MEDS ORDERED: Aminoglycoside Consult 1 EACH MC ONE (08:18)
[2019-05-09] MEDS ORDERED: Furosemide 40 MG/4 ML VIAL IVP ONE (09:11)
[2019-05-09] MEDS: Budesonide/Formoterol 160/4.5 1 PUFF INH IH SCH ×2 (09:31→21:04)
[2019-05-09] MEDS: Aspirin 81 MG TAB.CHEW GTUBE SCH (09:34)
[2019-05-09] MEDS: Dexmedetomidine HCl 400 MCG/100 ML MLS IVC SCH (09:37)
[2019-05-09] MEDS: Docusate Oral Soln 100 MG/10 ML UDC GTUBE SCH ×2 (12:37→20:43)
[2019-05-09] MEDS: Norepinephrine 4 MG in 0.9 % Sodium Chloride 250 ML IVC SCH (12:39)
[2019-05-09] MEDS ORDERED: Vancomycin 1,000 MG VIAL ONE (15:19)
[2019-05-09] MEDS ORDERED: *HR* Propofol 200 MG/20 ML VIAL IVP ONE (15:49)
[2019-05-09] MEDS ORDERED: *HR* FentaNYL (PF) 100 MCG/2 ML VIAL ONE (15:49)
[2019-05-09] MEDS ORDERED: *HR* PHENYLEPHRINE 1,000 MCG/10 ML SYRINGE IVP ONE (15:50)
[2019-05-09] MEDS ORDERED: Dexamethasone 4 MG/ML VIAL ONE (16:57)
[2019-05-09] MEDS ORDERED: Ondansetron 4 MG/2 ML VIAL ONE (16:57)
[2019-05-09] MEDS: Azithromycin 500 MG in 0.9 % Sodium Chloride 250 ML IVPB SCH (20:44)
[2019-05-09] MEDS: Aspirin 81 MG TAB.CHEW PO SCH (20:45)
[2019-05-10] MEDS: FentaNYL (PF) 1,000 MCG in 0.9 % Sodium Chloride 80 ML IVC SCH ×2 (02:04→14:32)
[2019-05-10] MEDS: Ipratropium/Albuterol Neb 3 ML IH SCH ×4 (03:14→21:08)
[2019-05-10] MEDS: Artificial Tears SOLN 15 ML BOTTLE BOTH EYES SCH ×5 (03:27→19:21)
[2019-05-10] MEDS: Piperacillin/Tazobactam 3.375 GM in 0.9 % Sodium Chloride Mini Bag 100 ML IVPB SCH ×3 (03:28→19:22)
[2019-05-10 04:19] LABS: BUN/Creatinine Ratio 34 (6-26); Blood Urea Nitrogen 32 mg/dL (8-23); Calcium 8.4 mg/dL (8.6-10.3); Carbon Dioxide 30 mEq/L (23-29); Chloride 103 mEq/L (98-107); Glucose 128 mg/dL (70-105); Osmolality,Calculated 301 (280-300); Potassium 4.4 mEq/L (3.5-5.1); Sodium 141 mEq/L (136-145); eGFR For African Americans > 60 (> 60); eGFR For Non-African Americans > 60 (> 60)
[2019-05-10 04:27] LABS: Hematocrit 29.2 % (37.5-50.1); Hemoglobin 9.1 g/dL (12.9-16.9); Immature Granulocytes % 0.5 % (0-4); Lymphocytes # 0.6 K/mcL (0.6-4.6); Mean Corpuscular HGB Conc 31.2 g/dL (31.6-35.5); Mean Corpuscular Hemoglobin 27.7 pg (28.0-33.3); Mean Corpuscular Volume 88.8 fL (83.0-100.0); Mean Platelet Volume 10.3 fL (9.4-12.4); Monocytes # 0.5 K/mcL (0.0-1.3); Monocytes % 5.4 %; Neutrophils # 8.7 K/mcL (1.6-8.9); Platelet Count 239 K/mcL (140-400); Red Blood Count 3.29 M/mcL (4.19-5.50); Red Cell Distribution Width 16.5 % (11.5-14.5); Segmented Neutrophils % 88.1 %; White Blood Count 9.9 K/mcL (4.3-11.1)
[2019-05-10 04:27] LABS: ABG Base Excess 8 mEq/L (-2 to 3); ABG HCO3 36 mEq/L (21-27); ABG Oxygen Saturation 97 % (95-98); ABG PCO2 67 mmHg (35-45); ABG PH 7.33 pH Units (7.32-7.45); ABG PO2 98 mmHg (85-104); ABG TCO2 38 mEq/L (20-26); Blood Gas Modality VC; Blood Gas VT 500 cc
[2019-05-10] MEDS: MethylPREDNISolone 40 MG/ML VIAL IVP SCH ×2 (05:27→17:26)
[2019-05-10] MEDS: Insulin LISPRO 300 UNITS/3 ML VIAL SQ SCH ×3 (05:28→19:21)
[2019-05-10] MEDS: Dexmedetomidine HCl 400 MCG/100 ML MLS IVC SCH (05:32)
[2019-05-10] MEDS: Pantoprazole 40 MG VIAL IVP SCH (08:26)
[2019-05-10] MEDS: Docusate Oral Soln 100 MG/10 ML UDC GTUBE SCH ×2 (08:26→20:00)
[2019-05-10] MEDS: Aspirin 81 MG TAB.CHEW GTUBE SCH (08:26)
[2019-05-10] MEDS: Chlorhexidine Rinse 15 ML MOUTHWASH MM SCH ×2 (08:28→19:22)
[2019-05-10] MEDS: Furosemide 40 MG/4 ML VIAL IVP SCH ×2 (08:29→20:00)
[2019-05-10] MEDS: *HR* Heparin 5,000 UNIT/ML VIAL SQ SCH ×2 (08:30→15:28)
[2019-05-10] MEDS: Budesonide/Formoterol 160/4.5 1 PUFF INH IH SCH ×2 (09:58→21:08)
[2019-05-10] MEDS: Norepinephrine 4 MG in 0.9 % Sodium Chloride 250 ML IVC SCH (10:22)
[2019-05-10] MEDS ORDERED: Metoprolol XL (24 HR) Succ 25 MG TAB.ER.24H PO SCH (11:55)
[2019-05-10] MEDS: Azithromycin 500 MG in 0.9 % Sodium Chloride 250 ML IVPB SCH (20:01)
[2019-05-11] MEDS: *HR* Heparin 5,000 UNIT/ML VIAL SQ SCH ×3 (00:38→16:35)
[2019-05-11] MEDS: Artificial Tears SOLN 15 ML BOTTLE BOTH EYES SCH ×6 (00:38→19:43)
[2019-05-11] MEDS: Insulin LISPRO 300 UNITS/3 ML VIAL SQ SCH ×4 (00:39→17:58)
[2019-05-11] MEDS: FentaNYL (PF) 1,000 MCG in 0.9 % Sodium Chloride 80 ML IVC SCH ×3 (00:49→20:01)
[2019-05-11] MEDS: Piperacillin/Tazobactam 3.375 GM in 0.9 % Sodium Chloride Mini Bag 100 ML IVPB SCH ×3 (03:28→19:40)
[2019-05-11] MEDS: Ipratropium/Albuterol Neb 3 ML IH SCH ×4 (03:30→22:42)
[2019-05-11 03:46] LABS: Hematocrit 28.9 % (37.5-50.1); Hemoglobin 9.3 g/dL (12.9-16.9); Mean Corpuscular HGB Conc 32.2 g/dL (31.6-35.5); Mean Corpuscular Hemoglobin 28.2 pg (28.0-33.3); Mean Corpuscular Volume 87.6 fL (83.0-100.0); Mean Platelet Volume 10.1 fL (9.4-12.4); Platelet Count 238 K/mcL (140-400); Red Cell Distribution Width 16.7 % (11.5-14.5); White Blood Count 11.6 K/mcL (4.3-11.1)
[2019-05-11 04:07] LABS: BUN/Creatinine Ratio 38 (6-26); Blood Urea Nitrogen 30 mg/dL (8-23); Calcium 8.5 mg/dL (8.6-10.3); Carbon Dioxide 38 mEq/L (23-29); Chloride 100 mEq/L (98-107); Glucose 144 mg/dL (70-105); Magnesium 1.7 mg/dL (1.6-2.6); Osmolality,Calculated 303 (280-300); Phosphorous 3.7 mg/dL (2.7-4.5); Potassium 3.8 mEq/L (3.5-5.1); Sodium 142 mEq/L (136-145); eGFR For African Americans > 60 (> 60); eGFR For Non-African Americans > 60 (> 60)
[2019-05-11 05:08] LABS: ABG Base Excess 13 mEq/L (-2 to 3); ABG HCO3 41 mEq/L (21-27); ABG Oxygen Saturation 97 % (95-98); ABG PCO2 79 mmHg (35-45); ABG PH 7.33 pH Units (7.32-7.45); ABG PO2 99 mmHg (85-104); ABG TCO2 44 mEq/L (20-26); Blood Gas Modality ASSIST CONTROL; Blood Gas VT 500 cc
[2019-05-11] MEDS: MethylPREDNISolone 40 MG/ML VIAL IVP SCH ×2 (05:30→18:00)
[2019-05-11] MEDS: Dexmedetomidine HCl 400 MCG/100 ML MLS IVC SCH ×2 (07:57→18:00)
[2019-05-11] MEDS: Norepinephrine 4 MG in 0.9 % Sodium Chloride 250 ML IVC SCH (07:57)
[2019-05-11] MEDS: Furosemide 40 MG/4 ML VIAL IVP SCH ×2 (07:58→19:40)
[2019-05-11] MEDS: Docusate Oral Soln 100 MG/10 ML UDC GTUBE SCH ×2 (07:58→19:40)
[2019-05-11] MEDS: Chlorhexidine Rinse 15 ML MOUTHWASH MM SCH ×2 (07:58→19:40)
[2019-05-11] MEDS: Pantoprazole 40 MG VIAL IVP SCH (07:58)
[2019-05-11] MEDS: Aspirin 81 MG TAB.CHEW GTUBE SCH (08:00)
[2019-05-11] MEDS: Budesonide/Formoterol 160/4.5 1 PUFF INH IH SCH ×2 (09:15→22:42)
[2019-05-11] MEDS: Ertapenem 1,000 MG in 0.9 % Sodium Chloride Mini Bag 100 ML IVPB SCH (09:52)
[2019-05-11] MEDS: Azithromycin 500 MG in 0.9 % Sodium Chloride 250 ML IVPB SCH (19:37)
[2019-05-12] MEDS: Ipratropium/Albuterol Neb 3 ML IH SCH ×4 (03:23→22:47)
[2019-05-12] MEDS: Artificial Tears SOLN 15 ML BOTTLE BOTH EYES SCH ×4 (03:30→11:15)
[2019-05-12] MEDS: Piperacillin/Tazobactam 3.375 GM in 0.9 % Sodium Chloride Mini Bag 100 ML IVPB SCH (03:30)
[2019-05-12 04:40] LABS: Hemoglobin 9.2 g/dL (12.9-16.9); Immature Granulocytes % 0.6 % (0-4); Lymphocytes # 1.1 K/mcL (0.6-4.6); Lymphocytes % 14.4 %; Mean Corpuscular HGB Conc 31.7 g/dL (31.6-35.5); Mean Corpuscular Volume 88.1 fL (83.0-100.0); Mean Platelet Volume 10.5 fL (9.4-12.4); Monocytes # 0.5 K/mcL (0.0-1.3); Monocytes % 6.3 %; Neutrophils # 6.1 K/mcL (1.6-8.9); Platelet Count 207 K/mcL (140-400); Red Blood Count 3.29 M/mcL (4.19-5.50); Red Cell Distribution Width 16.8 % (11.5-14.5); Segmented Neutrophils % 78.7 %; White Blood Count 7.7 K/mcL (4.3-11.1)
[2019-05-12 05:02] LABS: ABG Base Excess 20 mEq/L (-2 to 3); ABG HCO3 47 mEq/L (21-27); ABG Oxygen Saturation 98 % (95-98); ABG PCO2 76 mmHg (35-45); ABG PO2 106 mmHg (85-104); ABG TCO2 49 mEq/L (20-26); Blood Gas Modality ASSIST CONTROL; Blood Gas VT 500 cc
[2019-05-12 05:03] LABS: BUN/Creatinine Ratio 51 (6-26); Blood Urea Nitrogen 39 mg/dL (8-23); Calcium 8.8 mg/dL (8.6-10.3); Carbon Dioxide > 45 mEq/L (23-29); Chloride 96 mEq/L (98-107); Glucose 201 mg/dL (70-105); Osmolality,Calculated 321 (280-300); Potassium 3.5 mEq/L (3.5-5.1); Sodium 148 mEq/L (136-145); eGFR For African Americans > 60 (> 60); eGFR For Non-African Americans > 60 (> 60)
[2019-05-12] MEDS: MethylPREDNISolone 40 MG/ML VIAL IVP SCH ×2 (05:24→17:54)
[2019-05-12] MEDS: Insulin LISPRO 300 UNITS/3 ML VIAL SQ SCH ×4 (05:25→18:03)
[2019-05-12] MEDS: FentaNYL (PF) 1,000 MCG in 0.9 % Sodium Chloride 80 ML IVC SCH (07:09)
[2019-05-12] MEDS: Docusate Oral Soln 100 MG/10 ML UDC GTUBE SCH ×2 (07:32→20:23)
[2019-05-12] MEDS: Aspirin 81 MG TAB.CHEW GTUBE SCH (07:33)
[2019-05-12] MEDS: Pantoprazole 40 MG VIAL IVP SCH (07:40)
[2019-05-12] MEDS: Ertapenem 1,000 MG in 0.9 % Sodium Chloride Mini Bag 100 ML IVPB SCH (07:42)
[2019-05-12] MEDS: Furosemide 40 MG/4 ML VIAL IVP SCH (07:49)
[2019-05-12] MEDS: *HR* Heparin 5,000 UNIT/ML VIAL SQ SCH ×3 (07:50→15:37)
[2019-05-12] MEDS: Chlorhexidine Rinse 15 ML MOUTHWASH MM SCH (07:51)
[2019-05-12] MEDS ORDERED: D5% in Water 1,000 ML IVC SCH (08:15)
[2019-05-12] MEDS ORDERED: D5% in Water 500 ML IVC SCH (09:15)
[2019-05-12] MEDS: Budesonide/Formoterol 160/4.5 1 PUFF INH IH SCH ×2 (11:08→22:47)
[2019-05-12] MEDS ORDERED: *HR* Labetalol 20 MG/4 ML SYRINGE IVP ONE (13:55)
[2019-05-12] MEDS: Dexmedetomidine HCl 400 MCG/100 ML MLS IVC SCH (20:22)
[2019-05-12] MEDS: Azithromycin 500 MG in 0.9 % Sodium Chloride 250 ML IVPB SCH (20:23)
[2019-05-13] MEDS: *HR* Heparin 5,000 UNIT/ML VIAL SQ SCH ×2 (00:21→08:56)
[2019-05-13] MEDS: Insulin LISPRO 300 UNITS/3 ML VIAL SQ SCH ×4 (00:22→20:20)
[2019-05-13] MEDS: Dexmedetomidine HCl 400 MCG/100 ML MLS IVC SCH (00:27)
[2019-05-13] MEDS: Ipratropium/Albuterol Neb 3 ML IH SCH ×4 (04:31→22:31)
[2019-05-13 05:25] LABS: Basophils % 0.1 %; Eosinophils % 0.2 %; Hematocrit 29.6 % (37.5-50.1); Immature Granulocytes % 0.4 % (0-4); Lymphocytes # 1.7 K/mcL (0.6-4.6); Mean Corpuscular HGB Conc 30.4 g/dL (31.6-35.5); Mean Corpuscular Volume 91.9 fL (83.0-100.0); Mean Platelet Volume 10.6 fL (9.4-12.4); Monocytes # 0.6 K/mcL (0.0-1.3); Monocytes % 7.3 %; Neutrophils # 6.1 K/mcL (1.6-8.9); Platelet Count 212 K/mcL (140-400); Red Blood Count 3.22 M/mcL (4.19-5.50); Red Cell Distribution Width 16.2 % (11.5-14.5); White Blood Count 8.4 K/mcL (4.3-11.1)
[2019-05-13 05:48] LABS: BUN/Creatinine Ratio 48 (6-26); Blood Urea Nitrogen 29 mg/dL (8-23); Calcium 9.1 mg/dL (8.6-10.3); Carbon Dioxide > 45 mEq/L (23-29); Chloride 93 mEq/L (98-107); Glucose 111 mg/dL (70-105); Osmolality,Calculated 305 (280-300); Potassium 3.7 mEq/L (3.5-5.1); Sodium 144 mEq/L (136-145); eGFR For African Americans > 60 (> 60); eGFR For Non-African Americans > 60 (> 60)
[2019-05-13] MEDS: MethylPREDNISolone 40 MG/ML VIAL IVP SCH (06:52)
[2019-05-13] MEDS: Ertapenem 1,000 MG in 0.9 % Sodium Chloride Mini Bag 100 ML IVPB SCH (08:56)
[2019-05-13] MEDS: Pantoprazole 40 MG VIAL IVP SCH (08:56)
[2019-05-13] MEDS ORDERED: Docusate Oral Soln 100 MG/10 ML UDC PO SCH (09:00)
[2019-05-13] MEDS ORDERED: Aspirin 81 MG TAB.CHEW PO SCH (09:00)
[2019-05-13] MEDS: Budesonide/Formoterol 160/4.5 1 PUFF INH IH SCH ×2 (09:40→22:31)
[2019-05-13] MEDS ORDERED: *HR* Dextrose 50 % in Water (Syg) 50 ML SYRINGE IVP PRN (12:06)
[2019-05-13] MEDS ORDERED: Dextrose Gel 15 GM/37.5 ML TUBE PO PRN ×2 (12:06)
[2019-05-13] MEDS ORDERED: D5% in Water 1,000 ML IVC PRN (12:06)
[2019-05-13] MEDS ORDERED: Albuterol 2.5 MG/3 ML NEBULIZER IH PRN (12:06)
[2019-05-13] MEDS ORDERED: Naloxone 0.4 MG/ML INJ IVP PRN (12:06)
[2019-05-13] MEDS ORDERED: *HR* Heparin 5,000 UNIT/ML VIAL SQ SCH (16:00)
[2019-05-13] MEDS ORDERED: *HR* Heparin 5,000 UNIT/ML VIAL IVP PRN (18:09)
[2019-05-13] MEDS ORDERED: *HR* Heparin 5,000 UNIT/ML VIAL IVP ONE (18:09)
[2019-05-13] MEDS: Heparin 25,000 UNIT/250 ML D5W 25,000 UNIT/250 ML IV.SOLN IVC SCH (18:36)
[2019-05-13 18:47] LABS: Heparin anti-factor XA UFH 0.11 IU/mL (0.30-0.70)
[2019-05-13 18:48] LABS: Prothrombin Time 11.9 Seconds (9.4-12.1)
[2019-05-13 18:50] LABS: Hematocrit 33.3 % (37.5-50.1); Mean Corpuscular HGB Conc 32.1 g/dL (31.6-35.5); Mean Corpuscular Hemoglobin 28.1 pg (28.0-33.3); Mean Corpuscular Volume 87.4 fL (83.0-100.0); Mean Platelet Volume 10.3 fL (9.4-12.4); Platelet Count 316 K/mcL (140-400); Red Blood Count 3.81 M/mcL (4.19-5.50); Red Cell Distribution Width 16.6 % (11.5-14.5)
[2019-05-13 18:54] LABS: Hemoglobin 10.7 g/dL (12.9-16.9); White Blood Count 13.6 K/mcL (4.3-11.1)
[2019-05-13 19:08] LABS: Alanine Aminotransferase 47 Units/L (7-52); Albumin 3.4 g/dL (3.5-5.7); Albumin/Globulin Ratio 1.4 (1.1-2.2); Alkaline Phosphatase 62 Units/L (34-104); Aspartate Amino Transferase 30 Units/L (13-39); BUN/Creatinine Ratio 50 (6-26); Bilirubin,Total 0.5 mg/dL (0.3-1.0); Blood Urea Nitrogen 29 mg/dL (8-23); Calcium 9.4 mg/dL (8.6-10.3); Carbon Dioxide 43 mEq/L (23-29); Chloride 93 mEq/L (98-107); Globulin 2.4 g/dL (2.4-3.5); Glucose 98 mg/dL (70-105); Magnesium 1.9 mg/dL (1.6-2.6); Osmolality,Calculated 304 (280-300); Phosphorous 1.6 mg/dL (2.7-4.5); Potassium 4.2 mEq/L (3.5-5.1); Sodium 144 mEq/L (136-145); Total Protein 5.8 g/dL (6.4-8.9); eGFR For African Americans > 60 (> 60); eGFR For Non-African Americans > 60 (> 60)
[2019-05-13] MEDS: Docusate Oral Soln 100 MG/10 ML UDC PO SCH (20:20)
[2019-05-13] MEDS: QUEtiapine Fumarate 25 MG TABLET PO SCH (20:27)
[2019-05-14] MEDS: Ipratropium/Albuterol Neb 3 ML IH SCH ×4 (03:40→22:40)
[2019-05-14 06:31] LABS: Basophils % 0.1 %; Eosinophils # 0.1 K/mcL (0.0-0.6); Eosinophils % 0.4 %; Hematocrit 31.3 % (37.5-50.1); Hemoglobin 10.1 g/dL (12.9-16.9); Immature Granulocytes % 0.4 % (0-4); Lymphocytes # 1.8 K/mcL (0.6-4.6); Lymphocytes % 14.3 %; Mean Corpuscular HGB Conc 32.3 g/dL (31.6-35.5); Mean Corpuscular Hemoglobin 28.4 pg (28.0-33.3); Mean Corpuscular Volume 87.9 fL (83.0-100.0); Mean Platelet Volume 10.1 fL (9.4-12.4); Monocytes % 8.2 %; Neutrophils # 9.5 K/mcL (1.6-8.9); Platelet Count 284 K/mcL (140-400); Red Blood Count 3.56 M/mcL (4.19-5.50); Red Cell Distribution Width 16.7 % (11.5-14.5); Segmented Neutrophils % 76.6 %; White Blood Count 12.4 K/mcL (4.3-11.1)
[2019-05-14 06:46] LABS: BUN/Creatinine Ratio 36 (6-26); Blood Urea Nitrogen 24 mg/dL (8-23); Calcium 8.8 mg/dL (8.6-10.3); Carbon Dioxide 44 mEq/L (23-29); Chloride 95 mEq/L (98-107); Glucose 110 mg/dL (70-105); Osmolality,Calculated 305 (280-300); Potassium 3.8 mEq/L (3.5-5.1); Sodium 145 mEq/L (136-145); eGFR For African Americans > 60 (> 60); eGFR For Non-African Americans > 60 (> 60)
[2019-05-14] MEDS: Docusate Oral Soln 100 MG/10 ML UDC PO SCH ×2 (08:19→21:16)
[2019-05-14] MEDS: Insulin LISPRO 300 UNITS/3 ML VIAL SQ SCH ×4 (08:19→21:16)
[2019-05-14] MEDS: Aspirin 81 MG TAB.CHEW PO SCH (08:19)
[2019-05-14] MEDS: MethylPREDNISolone 40 MG/ML VIAL IVP SCH (08:21)
[2019-05-14] MEDS: *HR* Heparin 5,000 UNIT/ML VIAL IVP PRN ×2 (08:21→16:22)
[2019-05-14] MEDS: Ertapenem 1,000 MG in 0.9 % Sodium Chloride Mini Bag 100 ML IVPB SCH (08:21)
[2019-05-14] MEDS: Budesonide/Formoterol 160/4.5 1 PUFF INH IH SCH ×2 (10:04→22:40)
[2019-05-14] MEDS: Heparin 25,000 UNIT/250 ML D5W 25,000 UNIT/250 ML IV.SOLN IVC SCH (21:14)
[2019-05-14] MEDS: QUEtiapine Fumarate 25 MG TABLET PO SCH (21:15)
[2019-05-15] MEDS: *HR* Heparin 5,000 UNIT/ML VIAL IVP PRN ×2 (02:08→04:57)
[2019-05-15] MEDS: Ipratropium/Albuterol Neb 3 ML IH SCH ×4 (04:26→21:38)
[2019-05-15 04:49] LABS: Basophils % 0.2 %; Eosinophils # 0.1 K/mcL (0.0-0.6); Eosinophils % 0.6 %; Hematocrit 31.9 % (37.5-50.1); Hemoglobin 10.1 g/dL (12.9-16.9); Immature Granulocytes % 0.5 % (0-4); Lymphocytes # 2.5 K/mcL (0.6-4.6); Lymphocytes % 18.9 %; Mean Corpuscular HGB Conc 31.7 g/dL (31.6-35.5); Mean Corpuscular Hemoglobin 27.8 pg (28.0-33.3); Mean Corpuscular Volume 87.9 fL (83.0-100.0); Mean Platelet Volume 10.3 fL (9.4-12.4); Monocytes # 1.1 K/mcL (0.0-1.3); Monocytes % 8.5 %; Neutrophils # 9.2 K/mcL (1.6-8.9); Platelet Count 333 K/mcL (140-400); Red Blood Count 3.63 M/mcL (4.19-5.50); Red Cell Distribution Width 16.7 % (11.5-14.5); Segmented Neutrophils % 71.3 %
[2019-05-15 05:01] LABS: BUN/Creatinine Ratio 38 (6-26); Blood Urea Nitrogen 24 mg/dL (8-23); Carbon Dioxide 38 mEq/L (23-29); Chloride 99 mEq/L (98-107); Glucose 100 mg/dL (70-105); Magnesium 1.9 mg/dL (1.6-2.6); Osmolality,Calculated 298 (280-300); Phosphorous 2.6 mg/dL (2.7-4.5); Potassium 3.7 mEq/L (3.5-5.1); Sodium 142 mEq/L (136-145); eGFR For African Americans > 60 (> 60); eGFR For Non-African Americans > 60 (> 60)
[2019-05-15] MEDS: Insulin LISPRO 300 UNITS/3 ML VIAL SQ SCH ×4 (08:54→20:36)
[2019-05-15] MEDS: Docusate Oral Soln 100 MG/10 ML UDC PO SCH ×2 (08:59→22:39)
[2019-05-15] MEDS: Aspirin 81 MG TAB.CHEW PO SCH (08:59)
[2019-05-15] MEDS: Ertapenem 1,000 MG in 0.9 % Sodium Chloride Mini Bag 100 ML IVPB SCH (09:00)
[2019-05-15] MEDS: MethylPREDNISolone 40 MG/ML VIAL IVP SCH (09:01)
[2019-05-15] MEDS: Budesonide/Formoterol 160/4.5 1 PUFF INH IH SCH ×2 (10:37→21:38)
[2019-05-15] MEDS ORDERED: Potassium Phosphate 44 MEQ in 0.9 % Sodium Chloride 250 ML IVPB ONE (11:01)
[2019-05-15] MEDS: Furosemide 20 MG/2 ML VIAL IVP SCH ×2 (12:14→16:51)
[2019-05-15] MEDS: carvediloL 6.25 MG TABLET PO SCH (16:50)
[2019-05-15] MEDS: *HR* Heparin 5,000 UNIT/ML VIAL SQ SCH (16:51)
[2019-05-15] MEDS: QUEtiapine Fumarate 25 MG TABLET PO SCH (21:18)
[2019-05-16 02:34] LABS: Basophils % 0.2 %; Eosinophils # 0.1 K/mcL (0.0-0.6); Eosinophils % 0.6 %; Hematocrit 31.4 % (37.5-50.1); Hemoglobin 9.7 g/dL (12.9-16.9); Immature Granulocytes % 0.5 % (0-4); Lymphocytes # 2.5 K/mcL (0.6-4.6); Lymphocytes % 19.1 %; Mean Corpuscular HGB Conc 30.9 g/dL (31.6-35.5); Mean Corpuscular Hemoglobin 27.6 pg (28.0-33.3); Mean Corpuscular Volume 89.5 fL (83.0-100.0); Mean Platelet Volume 10.1 fL (9.4-12.4); Monocytes % 7.5 %; Neutrophils # 9.6 K/mcL (1.6-8.9); Platelet Count 344 K/mcL (140-400); Red Blood Count 3.51 M/mcL (4.19-5.50); Red Cell Distribution Width 16.5 % (11.5-14.5); Segmented Neutrophils % 72.1 %; White Blood Count 13.3 K/mcL (4.3-11.1)
[2019-05-16 02:39] LABS: BUN/Creatinine Ratio 33 (6-26); Blood Urea Nitrogen 22 mg/dL (8-23); Carbon Dioxide 36 mEq/L (23-29); Chloride 100 mEq/L (98-107); Glucose 89 mg/dL (70-105); Magnesium 1.9 mg/dL (1.6-2.6); Osmolality,Calculated 295 (280-300); Phosphorous 3.6 mg/dL (2.7-4.5); Potassium 3.7 mEq/L (3.5-5.1); Sodium 141 mEq/L (136-145); eGFR For African Americans > 60 (> 60); eGFR For Non-African Americans > 60 (> 60)
[2019-05-16] MEDS: Ipratropium/Albuterol Neb 3 ML IH SCH ×4 (04:33→22:36)
[2019-05-16] MEDS: *HR* Heparin 5,000 UNIT/ML VIAL SQ SCH ×2 (05:37→17:52)
[2019-05-16] MEDS: Insulin LISPRO 300 UNITS/3 ML VIAL SQ SCH ×4 (07:27→20:10)
[2019-05-16] MEDS: predniSONE 20 MG TABLET PO SCH (07:36)
[2019-05-16] MEDS: Aspirin 81 MG TAB.CHEW PO SCH (07:36)
[2019-05-16] MEDS: carvediloL 6.25 MG TABLET PO SCH ×2 (07:36→17:44)
[2019-05-16] MEDS: Furosemide 20 MG/2 ML VIAL IVP SCH ×2 (07:36→17:52)
[2019-05-16] MEDS: Docusate Oral Soln 100 MG/10 ML UDC PO SCH (07:37)
[2019-05-16] MEDS: Budesonide/Formoterol 160/4.5 1 PUFF INH IH SCH ×2 (11:06→22:36)
[2019-05-16] MEDS ORDERED: Haloperidol Lactate 5 MG/ML VIAL IVP ONE (12:05)
[2019-05-16] MEDS: Spironolactone 25 MG TABLET PO SCH (13:05)
[2019-05-16] MEDS: Sennosides/Docusate Sodium TABLET PO SCH ×2 (20:16→20:23)
[2019-05-16] MEDS: QUEtiapine Fumarate 25 MG TABLET PO SCH ×3 (20:16→22:02)
[2019-05-17] MEDS: Ipratropium/Albuterol Neb 3 ML IH SCH ×4 (03:56→21:31)
[2019-05-17 04:16] LABS: Basophils % 0.1 %; Eosinophils # 0.2 K/mcL (0.0-0.6); Eosinophils % 1.1 %; Hematocrit 30.2 % (37.5-50.1); Hemoglobin 9.9 g/dL (12.9-16.9); Immature Granulocytes % 0.7 % (0-4); Lymphocytes # 2.5 K/mcL (0.6-4.6); Lymphocytes % 18.6 %; Mean Corpuscular HGB Conc 32.8 g/dL (31.6-35.5); Mean Corpuscular Hemoglobin 28.2 pg (28.0-33.3); Monocytes % 7.5 %; Neutrophils # 9.6 K/mcL (1.6-8.9); Platelet Count 416 K/mcL (140-400); Red Blood Count 3.51 M/mcL (4.19-5.50); Red Cell Distribution Width 16.4 % (11.5-14.5); White Blood Count 13.3 K/mcL (4.3-11.1)
[2019-05-17 04:38] LABS: BUN/Creatinine Ratio 35 (6-26); Blood Urea Nitrogen 25 mg/dL (8-23); Carbon Dioxide 34 mEq/L (23-29); Chloride 100 mEq/L (98-107); Glucose 88 mg/dL (70-105); Magnesium 1.9 mg/dL (1.6-2.6); Osmolality,Calculated 296 (280-300); Phosphorous 3.3 mg/dL (2.7-4.5); Potassium 3.3 mEq/L (3.5-5.1); Sodium 141 mEq/L (136-145); eGFR For African Americans > 60 (> 60); eGFR For Non-African Americans > 60 (> 60)
[2019-05-17] MEDS: *HR* Heparin 5,000 UNIT/ML VIAL SQ SCH ×2 (05:39→16:00)
[2019-05-17] MEDS ORDERED: Potassium Chloride Elixir 20 MEQ/15 ML UDC PO ONE (07:07)
[2019-05-17] MEDS: Insulin LISPRO 300 UNITS/3 ML VIAL SQ SCH ×4 (07:31→20:13)
[2019-05-17] MEDS: carvediloL 6.25 MG TABLET PO SCH ×2 (09:23→15:59)
[2019-05-17] MEDS: Sennosides/Docusate Sodium TABLET PO SCH ×2 (09:23→20:24)
[2019-05-17] MEDS: predniSONE 20 MG TABLET PO SCH (09:23)
[2019-05-17] MEDS: Furosemide 20 MG TABLET PO SCH ×2 (09:23→15:59)
[2019-05-17] MEDS: Aspirin 81 MG TAB.CHEW PO SCH (09:23)
[2019-05-17] MEDS: Spironolactone 25 MG TABLET PO SCH (09:24)
[2019-05-17] MEDS: Budesonide/Formoterol 160/4.5 1 PUFF INH IH SCH ×2 (09:39→21:31)
[2019-05-17] MEDS: QUEtiapine Fumarate 25 MG TABLET PO SCH (20:24)
[2019-05-18 00:44] LABS: ABG Base Excess 12 mEq/L (-2 to 3); ABG HCO3 37 mEq/L (21-27); ABG Oxygen Saturation 95 % (95-98); ABG PCO2 51 mmHg (35-45); ABG PH 7.47 pH Units (7.32-7.45); ABG PO2 73 mmHg (85-104); ABG TCO2 38 mEq/L (20-26)
[2019-05-18 01:19] LABS: Basophils % 0.1 %; Eosinophils % 0.1 %; Hematocrit 32.1 % (37.5-50.1); Immature Granulocytes % 0.4 % (0-4); Lymphocytes # 1.4 K/mcL (0.6-4.6); Mean Corpuscular HGB Conc 31.2 g/dL (31.6-35.5); Mean Corpuscular Hemoglobin 27.9 pg (28.0-33.3); Mean Corpuscular Volume 89.7 fL (83.0-100.0); Mean Platelet Volume 9.9 fL (9.4-12.4); Monocytes # 0.9 K/mcL (0.0-1.3); Monocytes % 6.1 %; Neutrophils # 11.9 K/mcL (1.6-8.9); Platelet Count 432 K/mcL (140-400); Red Blood Count 3.58 M/mcL (4.19-5.50); Red Cell Distribution Width 16.4 % (11.5-14.5); Segmented Neutrophils % 83.3 %; White Blood Count 14.2 K/mcL (4.3-11.1)
[2019-05-18 01:41] LABS: BUN/Creatinine Ratio 37 (6-26); Blood Urea Nitrogen 28 mg/dL (8-23); Calcium 9.2 mg/dL (8.6-10.3); Carbon Dioxide 33 mEq/L (23-29); Chloride 102 mEq/L (98-107); Glucose 127 mg/dL (70-105); Magnesium 1.9 mg/dL (1.6-2.6); Osmolality,Calculated 299 (280-300); Phosphorous 3.9 mg/dL (2.7-4.5); Potassium 3.6 mEq/L (3.5-5.1); Sodium 141 mEq/L (136-145); eGFR For African Americans > 60 (> 60); eGFR For Non-African Americans > 60 (> 60)
[2019-05-18] MEDS: Ipratropium/Albuterol Neb 3 ML IH SCH ×4 (04:20→22:51)
[2019-05-18] MEDS: *HR* Heparin 5,000 UNIT/ML VIAL SQ SCH ×2 (05:10→17:11)
[2019-05-18] MEDS: Insulin LISPRO 300 UNITS/3 ML VIAL SQ SCH ×4 (08:39→20:45)
[2019-05-18] MEDS: Aspirin 81 MG TAB.CHEW PO SCH (08:48)
[2019-05-18] MEDS: carvediloL 6.25 MG TABLET PO SCH ×2 (08:48→17:11)
[2019-05-18] MEDS: predniSONE 20 MG TABLET PO SCH (08:48)
[2019-05-18] MEDS: Spironolactone 25 MG TABLET PO SCH (08:48)
[2019-05-18] MEDS: Furosemide 20 MG TABLET PO SCH ×2 (08:48→17:11)
[2019-05-18] MEDS: Sennosides/Docusate Sodium TABLET PO SCH ×2 (08:48→21:03)
[2019-05-18] MEDS: Budesonide/Formoterol 160/4.5 1 PUFF INH IH SCH ×2 (10:05→22:51)
[2019-05-18] MEDS: Piperacillin/Tazobactam 3.375 GM in 0.9 % Sodium Chloride Mini Bag 100 ML IVPB SCH ×2 (12:06→21:00)
[2019-05-18] MEDS: Pregabalin 50 MG CAPSULE PO SCH ×2 (14:40→21:03)
[2019-05-18] MEDS: QUEtiapine Fumarate 25 MG TABLET PO SCH (21:03)
[2019-05-19] MEDS: Ipratropium/Albuterol Neb 3 ML IH SCH ×4 (03:36→22:26)
[2019-05-19] MEDS: Piperacillin/Tazobactam 3.375 GM in 0.9 % Sodium Chloride Mini Bag 100 ML IVPB SCH ×3 (03:57→21:48)
[2019-05-19] MEDS: *HR* Heparin 5,000 UNIT/ML VIAL SQ SCH ×2 (03:57→17:13)
[2019-05-19 04:40] LABS: Basophils % 0.1 %; Eosinophils # 0.2 K/mcL (0.0-0.6); Eosinophils % 1.2 %; Hematocrit 30.3 % (37.5-50.1); Hemoglobin 9.7 g/dL (12.9-16.9); Immature Granulocytes % 0.7 % (0-4); Lymphocytes # 2.3 K/mcL (0.6-4.6); Mean Corpuscular Hemoglobin 28.2 pg (28.0-33.3); Mean Corpuscular Volume 88.1 fL (83.0-100.0); Mean Platelet Volume 9.8 fL (9.4-12.4); Monocytes % 6.7 %; Neutrophils # 11.6 K/mcL (1.6-8.9); Platelet Count 440 K/mcL (140-400); Red Blood Count 3.44 M/mcL (4.19-5.50); Red Cell Distribution Width 16.6 % (11.5-14.5); Segmented Neutrophils % 76.3 %; White Blood Count 15.2 K/mcL (4.3-11.1)
[2019-05-19 04:49] LABS: BUN/Creatinine Ratio 34 (6-26); Blood Urea Nitrogen 30 mg/dL (8-23); Calcium 8.8 mg/dL (8.6-10.3); Carbon Dioxide 36 mEq/L (23-29); Chloride 101 mEq/L (98-107); Glucose 109 mg/dL (70-105); Magnesium 1.9 mg/dL (1.6-2.6); Osmolality,Calculated 297 (280-300); Phosphorous 3.7 mg/dL (2.7-4.5); Potassium 3.7 mEq/L (3.5-5.1); Sodium 140 mEq/L (136-145); eGFR For African Americans > 60 (> 60); eGFR For Non-African Americans > 60 (> 60)
[2019-05-19] MEDS: Insulin LISPRO 300 UNITS/3 ML VIAL SQ SCH ×4 (10:32→22:11)
[2019-05-19] MEDS: Furosemide 20 MG TABLET PO SCH ×2 (10:34→17:13)
[2019-05-19] MEDS: Spironolactone 25 MG TABLET PO SCH (10:34)
[2019-05-19] MEDS: Sennosides/Docusate Sodium TABLET PO SCH ×2 (10:34→21:51)
[2019-05-19] MEDS: predniSONE 20 MG TABLET PO SCH (10:34)
[2019-05-19] MEDS: Pregabalin 50 MG CAPSULE PO SCH ×3 (10:35→21:51)
[2019-05-19] MEDS: carvediloL 6.25 MG TABLET PO SCH ×2 (10:35→17:12)
[2019-05-19] MEDS: Aspirin 81 MG TAB.CHEW PO SCH (10:35)
[2019-05-19] MEDS: Budesonide/Formoterol 160/4.5 1 PUFF INH IH SCH ×2 (10:55→22:26)
[2019-05-19] MEDS ORDERED: Acetylcysteine 10% 2 ML INHSOL IH SCH (14:30)
[2019-05-19] MEDS: Acetylcysteine 10% 2 ML INHSOL IH SCH ×3 (15:43→23:17)
[2019-05-19] MEDS: QUEtiapine Fumarate 25 MG TABLET PO SCH (21:51)
[2019-05-20 02:38] LABS: Basophils % 0.1 %; Eosinophils # 0.2 K/mcL (0.0-0.6); Hematocrit 32.5 % (37.5-50.1); Hemoglobin 9.9 g/dL (12.9-16.9); Immature Granulocytes % 0.8 % (0-4); Lymphocytes # 2.1 K/mcL (0.6-4.6); Lymphocytes % 13.2 %; Mean Corpuscular HGB Conc 30.5 g/dL (31.6-35.5); Mean Corpuscular Volume 92.1 fL (83.0-100.0); Mean Platelet Volume 9.9 fL (9.4-12.4); Monocytes % 6.2 %; Neutrophils # 12.6 K/mcL (1.6-8.9); Platelet Count 421 K/mcL (140-400); Red Blood Count 3.53 M/mcL (4.19-5.50); Red Cell Distribution Width 16.6 % (11.5-14.5); Segmented Neutrophils % 78.7 %
[2019-05-20] MEDS: Acetylcysteine 10% 2 ML INHSOL IH SCH ×4 (03:31→22:46)
[2019-05-20] MEDS: Ipratropium/Albuterol Neb 3 ML IH SCH ×4 (03:31→22:46)
[2019-05-20] MEDS: Piperacillin/Tazobactam 3.375 GM in 0.9 % Sodium Chloride Mini Bag 100 ML IVPB SCH ×3 (04:17→20:01)
[2019-05-20 04:21] LABS: BUN/Creatinine Ratio 28 (6-26); Blood Urea Nitrogen 24 mg/dL (8-23); Carbon Dioxide 37 mEq/L (23-29); Chloride 100 mEq/L (98-107); Glucose 107 mg/dL (70-105); Magnesium 1.9 mg/dL (1.6-2.6); Osmolality,Calculated 301 (280-300); Potassium 3.7 mEq/L (3.5-5.1); Sodium 143 mEq/L (136-145); eGFR For African Americans > 60 (> 60); eGFR For Non-African Americans > 60 (> 60)
[2019-05-20] MEDS: *HR* Heparin 5,000 UNIT/ML VIAL SQ SCH ×2 (06:13→17:07)
[2019-05-20] MEDS: Sennosides/Docusate Sodium TABLET PO SCH ×2 (08:26→20:04)
[2019-05-20] MEDS: carvediloL 6.25 MG TABLET PO SCH ×2 (08:26→17:09)
[2019-05-20] MEDS: Aspirin 81 MG TAB.CHEW PO SCH (08:26)
[2019-05-20] MEDS: Spironolactone 25 MG TABLET PO SCH (08:26)
[2019-05-20] MEDS: predniSONE 20 MG TABLET PO SCH (08:27)
[2019-05-20] MEDS: Pregabalin 50 MG CAPSULE PO SCH ×3 (08:27→20:04)
[2019-05-20] MEDS: Furosemide 20 MG TABLET PO SCH ×2 (08:27→17:09)
[2019-05-20] MEDS: Budesonide/Formoterol 160/4.5 1 PUFF INH IH SCH ×2 (10:02→22:46)
[2019-05-20] MEDS: Insulin LISPRO 300 UNITS/3 ML VIAL SQ SCH ×4 (10:31→20:00)
[2019-05-20] MEDS: QUEtiapine Fumarate 25 MG TABLET PO SCH (20:04)
[2019-05-21] MEDS: Piperacillin/Tazobactam 3.375 GM in 0.9 % Sodium Chloride Mini Bag 100 ML IVPB SCH ×2 (03:58→12:11)
[2019-05-21] MEDS: *HR* Heparin 5,000 UNIT/ML VIAL SQ SCH (04:00)
[2019-05-21] MEDS: Acetylcysteine 10% 2 ML INHSOL IH SCH ×3 (04:07→15:40)
[2019-05-21] MEDS: Ipratropium/Albuterol Neb 3 ML IH SCH ×3 (04:07→15:40)
[2019-05-21 04:54] LABS: Hematocrit 32.7 % (37.5-50.1); Hemoglobin 10.3 g/dL (12.9-16.9); Mean Corpuscular HGB Conc 31.5 g/dL (31.6-35.5); Mean Corpuscular Hemoglobin 27.9 pg (28.0-33.3); Mean Corpuscular Volume 88.6 fL (83.0-100.0); Mean Platelet Volume 9.6 fL (9.4-12.4); Platelet Count 480 K/mcL (140-400); Red Blood Count 3.69 M/mcL (4.19-5.50); Red Cell Distribution Width 16.4 % (11.5-14.5); White Blood Count 13.1 K/mcL (4.3-11.1)
[2019-05-21 05:16] LABS: BUN/Creatinine Ratio 27 (6-26); Blood Urea Nitrogen 25 mg/dL (8-23); Carbon Dioxide 37 mEq/L (23-29); Chloride 98 mEq/L (98-107); Glucose 109 mg/dL (70-105); Osmolality,Calculated 299 (280-300); Sodium 142 mEq/L (136-145); eGFR For African Americans > 60 (> 60); eGFR For Non-African Americans > 60 (> 60)
[2019-05-21] MEDS: Pregabalin 50 MG CAPSULE PO SCH ×2 (08:52→14:07)
[2019-05-21] MEDS: Spironolactone 25 MG TABLET PO SCH (08:52)
[2019-05-21] MEDS: carvediloL 6.25 MG TABLET PO SCH (08:52)
[2019-05-21] MEDS: Sennosides/Docusate Sodium TABLET PO SCH (08:53)
[2019-05-21] MEDS: Aspirin 81 MG TAB.CHEW PO SCH (08:53)
[2019-05-21] MEDS ORDERED: predniSONE 10 MG TABLET PO SCH (09:00)
[2019-05-21] MEDS: Budesonide/Formoterol 160/4.5 1 PUFF INH IH SCH (09:04)
[2019-05-21] MEDS: Furosemide 20 MG TABLET PO SCH (09:07)
[2019-05-21] MEDS: Insulin LISPRO 300 UNITS/3 ML VIAL SQ SCH ×2 (09:26→12:12)
[2019-05-21 11:58] VITALS: BP 121/66
== END 2019-05-21 15:51 | DRG 853 ==
LOC: SUATTDRO 08:09 → ICNU 08:09 → 2NNU 05-14 03:29 → 2ANU 05-15 15:30
PROVIDERS: ADMIT Internal Medicine; ATTEND Internal Medicine

== ENCOUNTER 2019-07-31 03:23 | Inpatient (IN) ==
[2019-07-31] MEDS ORDERED: Ondansetron 4 MG/2 ML VIAL IVP PRN (06:10)
[2019-07-31] MEDS ORDERED: Naloxone 0.4 MG/ML INJ IVP PRN (06:10)
[2019-07-31] MEDS ORDERED: Artificial Tears SOLN 15 ML BOTTLE BOTH EYES PRN (06:11)
[2019-07-31] MEDS ORDERED: Isovue-370 500 ML BOTTLE IVP ONE (06:13)
[2019-07-31] MEDS ORDERED: D5% in Water 1,000 ML IVC PRN (06:30)
[2019-07-31] MEDS ORDERED: Dextrose Gel 15 GM/37.5 ML TUBE PO PRN ×2 (06:30)
[2019-07-31] MEDS ORDERED: Pantoprazole 40 MG VIAL IVP SCH (06:30)
[2019-07-31] MEDS ORDERED: *HR* Dextrose 50 % in Water (Syg) 50 ML SYRINGE IVP PRN (06:30)
[2019-07-31 06:31] LABS: ABG Base Excess 7 mEq/L (-2 to 3); ABG HCO3 35 mEq/L (21-27); ABG Oxygen Saturation 100 % (95-98); ABG PCO2 69 mmHg (35-45); ABG PH 7.31 pH Units (7.32-7.45); ABG PO2 196 mmHg (85-104); ABG TCO2 37 mEq/L (20-26); Blood Gas Modality AF; Blood Gas VT 450 cc
[2019-07-31] MEDS ORDERED: *HR* Heparin 5,000 UNIT/ML VIAL IVP PRN ×6 (06:33→10:00)
[2019-07-31] MEDS ORDERED: *HR* Heparin 5,000 UNIT/ML VIAL IVP ONE (06:33)
[2019-07-31] MEDS ORDERED: Heparin 25,000 UNIT/250 ML D5W 25,000 UNIT/250 ML IV.SOLN IVC SCH ×2 (06:45→10:00)
[2019-07-31] MEDS: FentaNYL (PF) 1,000 MCG in 0.9 % Sodium Chloride 80 ML IVC SCH ×3 (07:13→21:30)
[2019-07-31 07:28] LABS: Basophils % 0.1 %; Hematocrit 29.5 % (37.5-50.1); Hemoglobin 8.6 g/dL (12.9-16.9); Immature Granulocytes % 0.7 % (0-4); Lymphocytes # 0.4 K/mcL (0.6-4.6); Lymphocytes % 3.5 %; Mean Corpuscular HGB Conc 29.2 g/dL (31.6-35.5); Mean Corpuscular Volume 92.5 fL (83.0-100.0); Mean Platelet Volume 10.2 fL (9.4-12.4); Monocytes # 0.2 K/mcL (0.0-1.3); Monocytes % 1.7 %; Neutrophils # 10.9 K/mcL (1.6-8.9); Platelet Count 317 K/mcL (140-400); Red Blood Count 3.19 M/mcL (4.19-5.50); White Blood Count 11.6 K/mcL (4.3-11.1)
[2019-07-31] MEDS ORDERED: Azithromycin 500 MG in 0.9 % Sodium Chloride 250 ML IVPB SCH (08:00)
[2019-07-31] MEDS ORDERED: Ascorbic Acid 500 MG TABLET PO SCH (08:00)
[2019-07-31] MEDS ORDERED: Piperacillin/Tazobactam 3.375 GM in 0.9 % Sodium Chloride Mini Bag 100 ML IVPB SCH (08:00)
[2019-07-31] MEDS ORDERED: Furosemide 40 MG/4 ML VIAL IVP ONE (08:01)
[2019-07-31 08:05] LABS: Alanine Aminotransferase 15 Units/L (7-52); Albumin 3.5 g/dL (3.5-5.7); Albumin/Globulin Ratio 1.8 (1.1-2.2); Alkaline Phosphatase 97 Units/L (34-104); Aspartate Amino Transferase 18 Units/L (13-39); BUN/Creatinine Ratio 26 (6-26); Bilirubin,Total 0.3 mg/dL (0.3-1.0); Blood Urea Nitrogen 21 mg/dL (8-23); Calcium 8.8 mg/dL (8.6-10.3); Carbon Dioxide 33 mEq/L (23-29); Chloride 103 mEq/L (98-107); Chol/HDL Ratio 2.4 (0-4.9); Cholesterol 87 mg/dL (< 200); Globulin 1.9 g/dL (2.4-3.5); Glucose 174 mg/dL (70-105); HDL Cholesterol 36 mg/dL (40-59); LDL Cholesterol,Calculated 42 mg/dL (0-99); Magnesium 1.9 mg/dL (1.6-2.6); Osmolality,Calculated 295 (280-300); Potassium 4.3 mEq/L (3.5-5.1); Sodium 139 mEq/L (136-145); Total Protein 5.4 g/dL (6.4-8.9); Triglycerides 43 mg/dL (< 150); Troponin I 0.44 ng/mL (< 0.04); eGFR For African Americans > 60 (> 60); eGFR For Non-African Americans > 60 (> 60)
[2019-07-31 08:16] LABS: Heparin anti-factor XA UFH 0.09 IU/mL (0.30-0.70)
[2019-07-31 08:17] LABS: INR 1.1; Prothrombin Time 12.1 Seconds (9.4-12.1)
[2019-07-31] MEDS: Norepinephrine 4 MG in 0.9 % Sodium Chloride 250 ML IVC SCH (08:38)
[2019-07-31] MEDS: Insulin LISPRO 300 UNITS/3 ML VIAL SQ SCH ×3 (08:38→17:21)
[2019-07-31 08:50] LABS: % Iron Saturation 4 % (20-55); Bilirubin,Direct 0.1 mg/dL (0.0-0.2); Bilirubin,Indirect 0.2 mg/dL (0.0-1.0); C-Reactive Protein < 5 mg/L (Less than 10); Ferritin 18 ng/mL (20-250); Iron 15 mcg/dL (65-175); Lactate Dehydrogenase 173 Units/L (140-271); Transferrin 265 mg/dL (203-362)
[2019-07-31] MEDS: Chlorhexidine Rinse 15 ML MOUTHWASH MM SCH ×2 (10:06→19:52)
[2019-07-31] MEDS: Piperacillin/Tazobactam 3.375 GM in 0.9 % Sodium Chloride Mini Bag 100 ML IVPB SCH ×2 (10:07→16:19)
[2019-07-31] MEDS: Dexmedetomidine HCl 400 MCG/100 ML MLS IVC SCH ×2 (10:08→17:17)
[2019-07-31] MEDS: Azithromycin 500 MG in 0.9 % Sodium Chloride 250 ML IVPB SCH (10:08)
[2019-07-31] MEDS: Zinc Sulfate 220 MG CAPSULE PO SCH ×2 (10:32→21:56)
[2019-07-31] MEDS: Heparin 25,000 UNIT/250 ML D5W 25,000 UNIT/250 ML IV.SOLN IVC SCH (10:32)
[2019-07-31] MEDS: Artificial Tears SOLN 15 ML BOTTLE BOTH EYES SCH ×4 (10:46→19:54)
[2019-07-31 11:24] LABS: Bilirubin,Urine Negative (Negative); Blood,Urine Moderate (Negative); Clarity,Urine Clear (Clear); Color,Urine Yellow (Yellow); Glucose,Urine (UA) Normal (Normal); Ketones,Urine Negative (Negative); Leukocyte Esterase,Urine Negative (Negative); Nitrite,Urine Negative (Negative); Protein,Urine Negative (Neg-Trace); Specific Gravity,Urine 1.011 (1.010-1.025); Urobilinogen,Urine Normal (Normal)
[2019-07-31 11:27] LABS: Bacteria,Urine None Seen per hpf (None-Few); Hyaline Casts,Urine None Seen per lpf (None-Few); Squamous Epithelial Cell,Urine None Seen per lpf (None-Few); WBC,Urine 0-3 per hpf (0-3)
[2019-07-31] MEDS: Ascorbic Acid 500 MG TABLET PO SCH ×2 (14:56→19:54)
[2019-07-31 15:35] LABS: Hematocrit 28.2 % (37.5-50.1); Hemoglobin 8.2 g/dL (12.9-16.9); Mean Corpuscular HGB Conc 29.1 g/dL (31.6-35.5); Mean Corpuscular Hemoglobin 26.9 pg (28.0-33.3); Mean Corpuscular Volume 92.5 fL (83.0-100.0); Mean Platelet Volume 10.7 fL (9.4-12.4); Platelet Count 304 K/mcL (140-400); Red Blood Count 3.05 M/mcL (4.19-5.50); White Blood Count 10.4 K/mcL (4.3-11.1)
[2019-07-31 15:55] LABS: BUN/Creatinine Ratio 24 (6-26); Blood Urea Nitrogen 22 mg/dL (8-23); Carbon Dioxide 34 mEq/L (23-29); Chloride 103 mEq/L (98-107); Glucose 125 mg/dL (70-105); Osmolality,Calculated 293 (280-300); Potassium 4.8 mEq/L (3.5-5.1); Sodium 139 mEq/L (136-145); eGFR For African Americans > 60 (> 60); eGFR For Non-African Americans > 60 (> 60)
[2019-07-31 16:41] LABS: Troponin I 0.57 ng/mL (< 0.04)
[2019-07-31] MEDS ORDERED: 0.9 % Sodium Chloride 250 ML ONE (17:10)
[2019-07-31] MEDS ORDERED: Meropenem 500 MG in 0.9 % Sodium Chloride Mini Bag 100 ML IVPB SCH (18:04)
[2019-07-31] MEDS ORDERED: Meropenem 500 MG in Water for inj. (sterile) 10 ML IVP SCH ×2 (18:18→19:00)
[2019-07-31] MEDS: Meropenem 500 MG in Water for inj. (sterile) 10 ML IVP SCH (19:52)
[2019-07-31] MEDS: Pantoprazole 40 MG VIAL IVP SCH (19:52)
[2019-07-31 20:35] LABS: Hematocrit 30.8 % (37.5-50.1); Hemoglobin 9.3 g/dL (12.9-16.9)
[2019-07-31] MEDS ORDERED: Furosemide 40 MG in 0.9 % Sodium Chloride 50 ML IVPB SCH (21:00)
[2019-07-31] MEDS: Furosemide 40 MG/4 ML VIAL IVP SCH (21:56)
[2019-08-01] MEDS: Artificial Tears SOLN 15 ML BOTTLE BOTH EYES SCH ×6 (00:33→20:03)
[2019-08-01] MEDS: Insulin LISPRO 300 UNITS/3 ML VIAL SQ SCH ×4 (00:33→17:48)
[2019-08-01] MEDS: Meropenem 500 MG in Water for inj. (sterile) 10 ML IVP SCH ×2 (00:35→09:23)
[2019-08-01] MEDS: Ascorbic Acid 500 MG TABLET PO SCH ×5 (03:35→20:06)
[2019-08-01 04:28] LABS: Basophils # 0.1 K/mcL (0.0-0.2); Basophils % 0.3 %; Eosinophils % 0.2 %; Hemoglobin 9.3 g/dL (12.9-16.9); Immature Granulocytes % 0.8 % (0-4); Lymphocytes # 2.7 K/mcL (0.6-4.6); Lymphocytes % 15.5 %; Mean Corpuscular Hemoglobin 26.8 pg (28.0-33.3); Mean Corpuscular Volume 89.3 fL (83.0-100.0); Mean Platelet Volume 10.5 fL (9.4-12.4); Monocytes # 1.2 K/mcL (0.0-1.3); Monocytes % 6.9 %; Neutrophils # 13.5 K/mcL (1.6-8.9); Platelet Count 384 K/mcL (140-400); Red Blood Count 3.47 M/mcL (4.19-5.50); Red Cell Distribution Width 15.7 % (11.5-14.5); Segmented Neutrophils % 76.3 %
[2019-08-01 04:30] LABS: White Blood Count 17.7 K/mcL (4.3-11.1)
[2019-08-01 04:33] LABS: ABG Base Excess 6 mEq/L (-2 to 3); ABG HCO3 32 mEq/L (21-27); ABG Oxygen Saturation 97 % (95-98); ABG PCO2 51 mmHg (35-45); ABG PH 7.41 pH Units (7.32-7.45); ABG PO2 87 mmHg (85-104); ABG TCO2 34 mEq/L (20-26); Blood Gas Modality ASSIST CONTROL; Blood Gas VT 400 cc
[2019-08-01] MEDS: FentaNYL (PF) 1,000 MCG in 0.9 % Sodium Chloride 80 ML IVC SCH ×3 (04:50→19:09)
[2019-08-01 04:52] LABS: Alanine Aminotransferase 15 Units/L (7-52); Albumin 3.3 g/dL (3.5-5.7); Albumin/Globulin Ratio 1.6 (1.1-2.2); Alkaline Phosphatase 87 Units/L (34-104); Aspartate Amino Transferase 17 Units/L (13-39); BUN/Creatinine Ratio 26 (6-26); Bilirubin,Total 0.4 mg/dL (0.3-1.0); Blood Urea Nitrogen 28 mg/dL (8-23); Calcium 9.4 mg/dL (8.6-10.3); Carbon Dioxide 31 mEq/L (23-29); Chloride 104 mEq/L (98-107); Globulin 2.1 g/dL (2.4-3.5); Glucose 96 mg/dL (70-105); Magnesium 1.9 mg/dL (1.6-2.6); Osmolality,Calculated 295 (280-300); Phosphorous 3.9 mg/dL (2.7-4.5); Potassium 4.2 mEq/L (3.5-5.1); Sodium 140 mEq/L (136-145); Total Protein 5.4 g/dL (6.4-8.9); eGFR For African Americans > 60 (> 60); eGFR For Non-African Americans > 60 (> 60)
[2019-08-01] MEDS: Dexmedetomidine HCl 400 MCG/100 ML MLS IVC SCH (07:25)
[2019-08-01] MEDS ORDERED: *HR* Midazolam HCl 2 MG/2 ML VIAL IVP PRN (08:57)
[2019-08-01] MEDS: Chlorhexidine Rinse 15 ML MOUTHWASH MM SCH ×2 (09:23→20:00)
[2019-08-01] MEDS: Pantoprazole 40 MG VIAL IVP SCH ×2 (09:23→20:01)
[2019-08-01] MEDS: Furosemide 40 MG/4 ML VIAL IVP SCH ×2 (09:23→20:01)
[2019-08-01] MEDS: Heparin 25,000 UNIT/250 ML D5W 25,000 UNIT/250 ML IV.SOLN IVC SCH (09:24)
[2019-08-01] MEDS: Zinc Sulfate 220 MG CAPSULE PO SCH ×3 (09:24→20:01)
[2019-08-01] MEDS: Azithromycin 500 MG in 0.9 % Sodium Chloride 250 ML IVPB SCH (09:25)
[2019-08-01 10:17] LABS: Hematocrit 32.5 % (37.5-50.1); Hemoglobin 9.7 g/dL (12.9-16.9); Mean Corpuscular HGB Conc 29.8 g/dL (31.6-35.5); Mean Corpuscular Hemoglobin 26.7 pg (28.0-33.3); Mean Corpuscular Volume 89.5 fL (83.0-100.0); Mean Platelet Volume 10.8 fL (9.4-12.4); Platelet Count 382 K/mcL (140-400); Red Blood Count 3.63 M/mcL (4.19-5.50); Red Cell Distribution Width 15.5 % (11.5-14.5); White Blood Count 20.4 K/mcL (4.3-11.1)
[2019-08-01] MEDS: Meropenem 1,000 MG in Water for inj. (sterile) 20 ML IVP SCH ×2 (13:04→20:00)
[2019-08-01] MEDS: Norepinephrine 4 MG in 0.9 % Sodium Chloride 250 ML IVC SCH (13:53)
[2019-08-01] MEDS: Aspirin 81 MG TAB.CHEW PO SCH (16:49)
[2019-08-01 19:08] LABS: Hemoglobin 8.6 g/dL (12.9-16.9)
[2019-08-02] MEDS: Artificial Tears SOLN 15 ML BOTTLE BOTH EYES SCH ×7 (00:22→23:33)
[2019-08-02] MEDS: Insulin LISPRO 300 UNITS/3 ML VIAL SQ SCH ×5 (00:23→23:32)
[2019-08-02] MEDS: FentaNYL (PF) 1,000 MCG in 0.9 % Sodium Chloride 80 ML IVC SCH (01:53)
[2019-08-02] MEDS: Meropenem 1,000 MG in Water for inj. (sterile) 20 ML IVP SCH ×3 (03:42→20:33)
[2019-08-02] MEDS: Ascorbic Acid 500 MG TABLET PO SCH ×3 (03:43→11:41)
[2019-08-02 04:10] LABS: Hematocrit 28.6 % (37.5-50.1); Hemoglobin 8.5 g/dL (12.9-16.9); Mean Corpuscular HGB Conc 29.7 g/dL (31.6-35.5); Mean Corpuscular Hemoglobin 26.6 pg (28.0-33.3); Mean Corpuscular Volume 89.4 fL (83.0-100.0); Mean Platelet Volume 10.9 fL (9.4-12.4); Platelet Count 299 K/mcL (140-400); Red Cell Distribution Width 15.6 % (11.5-14.5); White Blood Count 12.6 K/mcL (4.3-11.1)
[2019-08-02 04:35] LABS: BUN/Creatinine Ratio 29 (6-26); Blood Urea Nitrogen 24 mg/dL (8-23); Calcium 8.8 mg/dL (8.6-10.3); Carbon Dioxide 33 mEq/L (23-29); Chloride 101 mEq/L (98-107); Glucose 85 mg/dL (70-105); Magnesium 1.6 mg/dL (1.6-2.6); Osmolality,Calculated 295 (280-300); Phosphorous 3.3 mg/dL (2.7-4.5); Potassium 2.9 mEq/L (3.5-5.1); Sodium 141 mEq/L (136-145); eGFR For African Americans > 60 (> 60); eGFR For Non-African Americans > 60 (> 60)
[2019-08-02 04:40] LABS: ABG Base Excess 10 mEq/L (-2 to 3); ABG HCO3 37 mEq/L (21-27); ABG Oxygen Saturation 97 % (95-98); ABG PCO2 60 mmHg (35-45); ABG PO2 93 mmHg (85-104); ABG TCO2 39 mEq/L (20-26); Blood Gas Modality AF; Blood Gas VT 400 cc
[2019-08-02] MEDS ORDERED: Potassium Chloride Elixir 20 MEQ/15 ML UDC GTUBE ONE (05:22)
[2019-08-02] MEDS ORDERED: Potassium Chloride 40 MEQ, Lidocaine 1% 2 ML in 0.9 % Sodium Chloride 500 ML IVPB ONE (06:47)
[2019-08-02] MEDS: Furosemide 40 MG/4 ML VIAL IVP SCH ×2 (07:45→20:34)
[2019-08-02] MEDS: Chlorhexidine Rinse 15 ML MOUTHWASH MM SCH ×2 (07:45→20:34)
[2019-08-02] MEDS: Aspirin 81 MG TAB.CHEW PO SCH (07:46)
[2019-08-02] MEDS: Zinc Sulfate 220 MG CAPSULE PO SCH (07:46)
[2019-08-02] MEDS: Pantoprazole 40 MG VIAL IVP SCH ×2 (07:46→20:33)
[2019-08-02] MEDS ORDERED: Aminoglycoside Consult 1 EACH MC ONE (08:10)
[2019-08-02] MEDS: Norepinephrine 4 MG in 0.9 % Sodium Chloride 250 ML IVC SCH (09:26)
[2019-08-02] MEDS: Heparin 25,000 UNIT/250 ML D5W 25,000 UNIT/250 ML IV.SOLN IVC SCH (09:26)
[2019-08-02] MEDS ORDERED: *HR* Metoprolol 5 MG/5 ML VIAL IVP ONE (11:10)
[2019-08-02] MEDS: Azithromycin 500 MG in 0.9 % Sodium Chloride 250 ML IVPB SCH (11:14)
[2019-08-02] MEDS ORDERED: *HR* Metoprolol 5 MG/5 ML VIAL IVP PRN (11:15)
[2019-08-02] MEDS: Ipratropium/Albuterol Neb 3 ML IH SCH ×4 (11:26→23:27)
[2019-08-02] MEDS: Dexmedetomidine HCl 400 MCG/100 ML MLS IVC SCH (20:01)
[2019-08-03] MEDS: Dexmedetomidine HCl 400 MCG/100 ML MLS IVC SCH ×3 (00:59→10:48)
[2019-08-03 02:27] LABS: Basophils % 0.3 %; Eosinophils # 0.1 K/mcL (0.0-0.6); Eosinophils % 0.5 %; Hematocrit 28.9 % (37.5-50.1); Hemoglobin 8.7 g/dL (12.9-16.9); Immature Granulocytes % 0.6 % (0-4); Lymphocytes # 1.5 K/mcL (0.6-4.6); Lymphocytes % 12.8 %; Mean Corpuscular HGB Conc 30.1 g/dL (31.6-35.5); Mean Corpuscular Hemoglobin 26.9 pg (28.0-33.3); Mean Corpuscular Volume 89.5 fL (83.0-100.0); Mean Platelet Volume 10.9 fL (9.4-12.4); Monocytes # 0.9 K/mcL (0.0-1.3); Platelet Count 268 K/mcL (140-400); Red Blood Count 3.23 M/mcL (4.19-5.50); Red Cell Distribution Width 15.2 % (11.5-14.5); Segmented Neutrophils % 77.8 %; White Blood Count 11.6 K/mcL (4.3-11.1)
[2019-08-03 02:39] LABS: BUN/Creatinine Ratio 28 (6-26); Blood Urea Nitrogen 19 mg/dL (8-23); Calcium 9.1 mg/dL (8.6-10.3); Carbon Dioxide 39 mEq/L (23-29); Chloride 97 mEq/L (98-107); Glucose 115 mg/dL (70-105); Magnesium 1.8 mg/dL (1.6-2.6); Osmolality,Calculated 299 (280-300); Phosphorous 2.7 mg/dL (2.7-4.5); Potassium 3.4 mEq/L (3.5-5.1); Sodium 143 mEq/L (136-145); eGFR For African Americans > 60 (> 60); eGFR For Non-African Americans > 60 (> 60)
[2019-08-03] MEDS: Meropenem 1,000 MG in Water for inj. (sterile) 20 ML IVP SCH ×3 (03:51→20:04)
[2019-08-03] MEDS: Ipratropium/Albuterol Neb 3 ML IH SCH ×6 (03:52→23:29)
[2019-08-03] MEDS: Artificial Tears SOLN 15 ML BOTTLE BOTH EYES SCH ×6 (03:54→23:21)
[2019-08-03] MEDS: Insulin LISPRO 300 UNITS/3 ML VIAL SQ SCH ×4 (05:53→23:21)
[2019-08-03] MEDS ORDERED: Potassium Chloride 40 MEQ, Lidocaine 1% 2 ML in 0.9 % Sodium Chloride 500 ML IVPB ONE (06:59)
[2019-08-03] MEDS: Norepinephrine 4 MG in 0.9 % Sodium Chloride 250 ML IVC SCH (08:13)
[2019-08-03] MEDS: Heparin 25,000 UNIT/250 ML D5W 25,000 UNIT/250 ML IV.SOLN IVC SCH (09:23)
[2019-08-03] MEDS: Furosemide 40 MG/4 ML VIAL IVP SCH ×2 (09:51→20:04)
[2019-08-03] MEDS: Pantoprazole 40 MG VIAL IVP SCH ×2 (09:51→20:04)
[2019-08-03] MEDS ORDERED: Haloperidol Lactate 5 MG/ML VIAL IVP PRN (09:56)
[2019-08-03] MEDS: Chlorhexidine Rinse 15 ML MOUTHWASH MM SCH ×2 (10:50→20:04)
[2019-08-03] MEDS: Aspirin 81 MG TAB.CHEW PO SCH (10:50)
[2019-08-03] MEDS ORDERED: Morphine Sulfate 2 MG/ML SYRINGE IVP PRN (13:44)
[2019-08-03] MEDS: Pregabalin 50 MG CAPSULE PO SCH (20:04)
[2019-08-04] MEDS: Ipratropium/Albuterol Neb 3 ML IH SCH ×6 (03:33→23:23)
[2019-08-04] MEDS: Artificial Tears SOLN 15 ML BOTTLE BOTH EYES SCH ×2 (03:33→07:56)
[2019-08-04] MEDS: Meropenem 1,000 MG in Water for inj. (sterile) 20 ML IVP SCH ×3 (03:33→20:15)
[2019-08-04 03:57] LABS: Hematocrit 31.4 % (37.5-50.1); Hemoglobin 9.5 g/dL (12.9-16.9); Mean Corpuscular HGB Conc 30.3 g/dL (31.6-35.5); Mean Corpuscular Hemoglobin 26.7 pg (28.0-33.3); Mean Corpuscular Volume 88.2 fL (83.0-100.0); Mean Platelet Volume 10.5 fL (9.4-12.4); Platelet Count 337 K/mcL (140-400); Red Blood Count 3.56 M/mcL (4.19-5.50); Red Cell Distribution Width 15.2 % (11.5-14.5); White Blood Count 13.5 K/mcL (4.3-11.1)
[2019-08-04 04:17] LABS: BUN/Creatinine Ratio 27 (6-26); Blood Urea Nitrogen 17 mg/dL (8-23); Calcium 9.4 mg/dL (8.6-10.3); Carbon Dioxide 38 mEq/L (23-29); Chloride 94 mEq/L (98-107); Glucose 109 mg/dL (70-105); Magnesium 1.8 mg/dL (1.6-2.6); Osmolality,Calculated 294 (280-300); Phosphorous 2.9 mg/dL (2.7-4.5); Potassium 3.3 mEq/L (3.5-5.1); Sodium 141 mEq/L (136-145); eGFR For African Americans > 60 (> 60); eGFR For Non-African Americans > 60 (> 60)
[2019-08-04] MEDS: Insulin LISPRO 300 UNITS/3 ML VIAL SQ SCH ×3 (05:27→17:18)
[2019-08-04] MEDS: Pregabalin 50 MG CAPSULE PO SCH ×2 (07:56→20:16)
[2019-08-04] MEDS: Furosemide 40 MG/4 ML VIAL IVP SCH ×2 (07:56→20:15)
[2019-08-04] MEDS: Pantoprazole 40 MG VIAL IVP SCH (07:56)
[2019-08-04] MEDS: Chlorhexidine Rinse 15 ML MOUTHWASH MM SCH (07:56)
[2019-08-04] MEDS: Norepinephrine 4 MG in 0.9 % Sodium Chloride 250 ML IVC SCH (07:56)
[2019-08-04] MEDS: Aspirin 81 MG TAB.CHEW PO SCH (07:57)
[2019-08-04] MEDS ORDERED: Dextrose Gel 15 GM/37.5 ML TUBE PO PRN ×2 (09:14)
[2019-08-04] MEDS ORDERED: Haloperidol Lactate 5 MG/ML VIAL IVP PRN (09:14)
[2019-08-04] MEDS ORDERED: Ondansetron 4 MG/2 ML VIAL IVP PRN (09:14)
[2019-08-04] MEDS ORDERED: D5% in Water 1,000 ML IVC PRN (09:14)
[2019-08-04] MEDS ORDERED: *HR* Metoprolol 5 MG/5 ML VIAL IVP PRN (09:14)
[2019-08-04] MEDS ORDERED: Morphine Sulfate 2 MG/ML SYRINGE IVP PRN (09:14)
[2019-08-04] MEDS ORDERED: Naloxone 0.4 MG/ML INJ IVP PRN (09:14)
[2019-08-04] MEDS ORDERED: *HR* Dextrose 50 % in Water (Syg) 50 ML SYRINGE IVP PRN (09:14)
[2019-08-04] MEDS ORDERED: Insulin LISPRO 300 UNITS/3 ML VIAL SQ SCH ×2 (12:00→21:00)
[2019-08-04] MEDS: carvediloL 6.25 MG TABLET PO SCH (17:19)
[2019-08-04] MEDS ORDERED: Pantoprazole 40 MG VIAL IVP SCH (21:00)
[2019-08-05] MEDS: Meropenem 1,000 MG in Water for inj. (sterile) 20 ML IVP SCH (03:38)
[2019-08-05] MEDS: Ipratropium/Albuterol Neb 3 ML IH SCH ×6 (03:54→23:42)
[2019-08-05 04:09] LABS: Basophils # 0.1 K/mcL (0.0-0.2); Basophils % 0.5 %; Eosinophils # 0.3 K/mcL (0.0-0.6); Eosinophils % 2.2 %; Hematocrit 34.6 % (37.5-50.1); Hemoglobin 10.6 g/dL (12.9-16.9); Immature Granulocytes % 0.6 % (0-4); Lymphocytes # 2.2 K/mcL (0.6-4.6); Mean Corpuscular HGB Conc 30.6 g/dL (31.6-35.5); Mean Corpuscular Hemoglobin 27.1 pg (28.0-33.3); Mean Corpuscular Volume 88.5 fL (83.0-100.0); Mean Platelet Volume 10.7 fL (9.4-12.4); Monocytes # 1.2 K/mcL (0.0-1.3); Monocytes % 8.2 %; Neutrophils # 10.5 K/mcL (1.6-8.9); Platelet Count 390 K/mcL (140-400); Red Blood Count 3.91 M/mcL (4.19-5.50); Red Cell Distribution Width 15.4 % (11.5-14.5); Segmented Neutrophils % 73.5 %; White Blood Count 14.3 K/mcL (4.3-11.1)
[2019-08-05 04:25] LABS: BUN/Creatinine Ratio 28 (6-26); Blood Urea Nitrogen 23 mg/dL (8-23); Calcium 9.6 mg/dL (8.6-10.3); Carbon Dioxide 40 mEq/L (23-29); Chloride 95 mEq/L (98-107); Glucose 104 mg/dL (70-105); Osmolality,Calculated 296 (280-300); Potassium 3.6 mEq/L (3.5-5.1); Sodium 141 mEq/L (136-145); eGFR For African Americans > 60 (> 60); eGFR For Non-African Americans > 60 (> 60)
[2019-08-05] MEDS: Furosemide 40 MG/4 ML VIAL IVP SCH (07:28)
[2019-08-05] MEDS: carvediloL 6.25 MG TABLET PO SCH ×2 (07:28→16:44)
[2019-08-05] MEDS: Aspirin 81 MG TAB.CHEW PO SCH (07:28)
[2019-08-05] MEDS: Pregabalin 50 MG CAPSULE PO SCH ×2 (07:29→19:58)
[2019-08-05] MEDS: Insulin LISPRO 300 UNITS/3 ML VIAL SQ SCH (07:32)
[2019-08-05] MEDS ORDERED: *HR* Propofol 200 MG/20 ML VIAL IVP ONE (08:19)
[2019-08-05] MEDS ORDERED: *HR* Succinylcholine 200 MG/10 ML VIAL IVP ONE (08:19)
[2019-08-05] MEDS ORDERED: Pantoprazole 40 MG VIAL IVP SCH (09:00)
[2019-08-05] MEDS: Sulfamethoxazole/Trimeth DS 1 EACH TABLET PO SCH ×2 (11:26→19:58)
[2019-08-06 02:42] LABS: Mean Corpuscular HGB Conc 31.4 g/dL (31.6-35.5); Mean Corpuscular Hemoglobin 27.4 pg (28.0-33.3); Mean Corpuscular Volume 87.1 fL (83.0-100.0); Mean Platelet Volume 10.4 fL (9.4-12.4); Platelet Count 430 K/mcL (140-400); Red Blood Count 4.02 M/mcL (4.19-5.50); Red Cell Distribution Width 15.1 % (11.5-14.5); White Blood Count 17.8 K/mcL (4.3-11.1)
[2019-08-06 03:02] LABS: BUN/Creatinine Ratio 30 (6-26); Blood Urea Nitrogen 34 mg/dL (8-23); C-Reactive Protein 46 mg/L (Less than 10); Calcium 9.9 mg/dL (8.6-10.3); Carbon Dioxide 37 mEq/L (23-29); Chloride 94 mEq/L (98-107); Glucose 106 mg/dL (70-105); Osmolality,Calculated 298 (280-300); Potassium 3.5 mEq/L (3.5-5.1); Sodium 140 mEq/L (136-145); eGFR For African Americans > 60 (> 60); eGFR For Non-African Americans > 60 (> 60)
[2019-08-06] MEDS: Ipratropium/Albuterol Neb 3 ML IH SCH ×6 (03:44→23:35)
[2019-08-06] MEDS: Aspirin 81 MG TAB.CHEW PO SCH (07:42)
[2019-08-06] MEDS: Furosemide 40 MG TABLET PO SCH (07:42)
[2019-08-06] MEDS: Pregabalin 50 MG CAPSULE PO SCH ×2 (07:42→21:40)
[2019-08-06] MEDS: carvediloL 6.25 MG TABLET PO SCH ×2 (07:42→17:54)
[2019-08-06] MEDS: Sulfamethoxazole/Trimeth DS 1 EACH TABLET PO SCH (07:43)
[2019-08-06 08:42] LABS: Basophils # 0.1 K/mcL (0.0-0.2); Basophils % 0.5 %; Eosinophils # 0.2 K/mcL (0.0-0.6); Hemoglobin 11.2 g/dL (12.9-16.9); Immature Granulocytes % 0.6 % (0-4); Lymphocytes # 1.5 K/mcL (0.6-4.6); Lymphocytes % 9.4 %; Mean Corpuscular HGB Conc 31.1 g/dL (31.6-35.5); Mean Corpuscular Hemoglobin 27.3 pg (28.0-33.3); Mean Corpuscular Volume 87.8 fL (83.0-100.0); Mean Platelet Volume 10.3 fL (9.4-12.4); Monocytes # 1.2 K/mcL (0.0-1.3); Monocytes % 7.7 %; Neutrophils # 12.6 K/mcL (1.6-8.9); Platelet Count 436 K/mcL (140-400); Red Cell Distribution Width 15.1 % (11.5-14.5); Segmented Neutrophils % 80.8 %; White Blood Count 15.6 K/mcL (4.3-11.1)
[2019-08-06] MEDS ORDERED: *HR* OxyCODONE/APAP 5/325 TABLET PO PRN (08:58)
[2019-08-06] MEDS: Gentamicin Oint 15 GM TUBE TP SCH (14:01)
[2019-08-06] MEDS: Meropenem 1,000 MG in 0.9 % Sodium Chloride Mini Bag 100 ML IVPB SCH (17:54)
[2019-08-07] MEDS: Meropenem 1,000 MG in 0.9 % Sodium Chloride Mini Bag 100 ML IVPB SCH ×3 (00:27→18:13)
[2019-08-07] MEDS: Ipratropium/Albuterol Neb 3 ML IH SCH ×5 (03:48→20:14)
[2019-08-07 04:53] LABS: Basophils # 0.1 K/mcL (0.0-0.2); Basophils % 0.5 %; Eosinophils # 0.4 K/mcL (0.0-0.6); Eosinophils % 2.5 %; Hematocrit 35.6 % (37.5-50.1); Hemoglobin 10.7 g/dL (12.9-16.9); Immature Granulocytes % 0.6 % (0-4); Lymphocytes % 18.6 %; Mean Corpuscular HGB Conc 30.1 g/dL (31.6-35.5); Mean Corpuscular Hemoglobin 26.4 pg (28.0-33.3); Mean Corpuscular Volume 87.9 fL (83.0-100.0); Mean Platelet Volume 10.4 fL (9.4-12.4); Monocytes # 1.2 K/mcL (0.0-1.3); Monocytes % 7.6 %; Neutrophils # 11.3 K/mcL (1.6-8.9); Platelet Count 487 K/mcL (140-400); Red Blood Count 4.05 M/mcL (4.19-5.50); Segmented Neutrophils % 70.2 %; White Blood Count 16.2 K/mcL (4.3-11.1)
[2019-08-07 05:12] LABS: BUN/Creatinine Ratio 35 (6-26); Blood Urea Nitrogen 47 mg/dL (8-23); Calcium 9.8 mg/dL (8.6-10.3); Carbon Dioxide 39 mEq/L (23-29); Chloride 94 mEq/L (98-107); Glucose 123 mg/dL (70-105); Magnesium 2.1 mg/dL (1.6-2.6); Osmolality,Calculated 304 (280-300); Potassium 3.7 mEq/L (3.5-5.1); Sodium 140 mEq/L (136-145); eGFR For African Americans > 60 (> 60); eGFR For Non-African Americans 52 (> 60)
[2019-08-07] MEDS: Pregabalin 50 MG CAPSULE PO SCH ×2 (08:55→21:02)
[2019-08-07] MEDS: Gentamicin Oint 15 GM TUBE TP SCH (08:55)
[2019-08-07] MEDS: Aspirin 81 MG TAB.CHEW PO SCH (08:55)
[2019-08-07] MEDS: carvediloL 6.25 MG TABLET PO SCH ×2 (08:56→18:12)
[2019-08-07] MEDS: Furosemide 40 MG TABLET PO SCH (08:56)
[2019-08-07] MEDS: amLODIPine 5 MG TABLET PO SCH (08:56)
[2019-08-08] MEDS: Meropenem 1,000 MG in 0.9 % Sodium Chloride Mini Bag 100 ML IVPB SCH ×2 (00:03→09:05)
[2019-08-08] MEDS: Ipratropium/Albuterol Neb 3 ML IH SCH ×4 (00:07→11:46)
[2019-08-08 03:35] LABS: Basophils # 0.1 K/mcL (0.0-0.2); Basophils % 0.5 %; Eosinophils # 0.7 K/mcL (0.0-0.6); Eosinophils % 5.1 %; Hematocrit 33.7 % (37.5-50.1); Immature Granulocytes % 0.6 % (0-4); Lymphocytes # 2.6 K/mcL (0.6-4.6); Lymphocytes % 18.7 %; Mean Corpuscular HGB Conc 29.7 g/dL (31.6-35.5); Mean Corpuscular Hemoglobin 26.6 pg (28.0-33.3); Mean Corpuscular Volume 89.6 fL (83.0-100.0); Mean Platelet Volume 10.2 fL (9.4-12.4); Monocytes # 1.1 K/mcL (0.0-1.3); Monocytes % 8.2 %; Neutrophils # 9.1 K/mcL (1.6-8.9); Platelet Count 453 K/mcL (140-400); Red Blood Count 3.76 M/mcL (4.19-5.50); Red Cell Distribution Width 15.1 % (11.5-14.5); Segmented Neutrophils % 66.9 %; White Blood Count 13.7 K/mcL (4.3-11.1)
[2019-08-08 04:43] LABS: BUN/Creatinine Ratio 35 (6-26); Blood Urea Nitrogen 40 mg/dL (8-23); Calcium 9.5 mg/dL (8.6-10.3); Carbon Dioxide 39 mEq/L (23-29); Chloride 99 mEq/L (98-107); Glucose 119 mg/dL (70-105); Magnesium 2.2 mg/dL (1.6-2.6); Osmolality,Calculated 307 (280-300); Potassium 3.8 mEq/L (3.5-5.1); Sodium 143 mEq/L (136-145); eGFR For African Americans > 60 (> 60); eGFR For Non-African Americans > 60 (> 60)
[2019-08-08] MEDS: Aspirin 81 MG TAB.CHEW PO SCH (09:06)
[2019-08-08] MEDS: carvediloL 6.25 MG TABLET PO SCH (09:06)
[2019-08-08] MEDS: Furosemide 40 MG TABLET PO SCH (09:06)
[2019-08-08] MEDS: amLODIPine 5 MG TABLET PO SCH (09:06)
[2019-08-08] MEDS: Pregabalin 50 MG CAPSULE PO SCH (09:06)
[2019-08-08] MEDS: Gentamicin Oint 15 GM TUBE TP SCH (09:07)
[2019-08-08 12:00] VITALS: BP 125/67
== END 2019-08-08 15:29 | disposition home health service (06) | DRG 871 ==
LOC: SUATTDRO 05:49 → ICNU 05:49 → 2NENU 07:43 → ICNU 08-01 22:39 → 3ANU 08-04 15:19
PROVIDERS: ADMIT Internal Medicine; ATTEND Pharmacist